=== PATIENT | female | born 1965 | race African-American/Black ===

== ENCOUNTER 2017-03-14 13:12 | Inpatient (IN) | payer MEDICAID, OTHER ==
[~2017-03-14] VITALS: Ht 165.1 cm; Wt 77.1 kg
[~2017-03-14 13:12] MED LIST: BENAZEPRIL HCL20 MG ORAL; CATAPRES0.1 MG ORAL
[2017-03-14 13:30] VITALS: BP 192/133
[2017-03-14] MEDS ORDERED: LORazepam Inj 2mg/ml 1ml IV ONE (13:45)
--- NOTE | 2017-03-14 13:49 | Emergency Room Report ---
History of Present Illness General Chief Complaint: Syncope Source: Patient, Medical Record Present Illness HPI 51-year-old female history of hypertension, anxiety, presenting with left-sided chest pain. Patient states that she had left-sided chest pain while walking down the stairs, states the pain was so severe that she fell down 3 steps, did not hit her head as her caught her, but states that there was LOC for less than 1 minute. Patient states that she felt that her left shoulder popped out and that her put it back in. Localized to substernal area, no radiation to back or other areas, sharp in nature, gradual in onset, has lasted for the last 3 hours. Denies SOB. Denies palpitations, diaphoresis, n/v. Patient took that she took nitroglycerin and 3 aspirin this which did not alleviate the pain Denies fever, chills, cough, abd pain. Denies trauma. Patient has never had a stress test. Patient has never had a cardiac catheterization. Denies smoking, no family history of cardiac disease at a young age. Allergies: Coded Allergies: METHYLPHENIDATE (Verified Allergy, Unknown, 03/14/17) METOCLOPRAMIDE (Verified Allergy, Unknown, 03/14/17) ONDANSETRON (Verified Allergy, Unknown, 03/14/17) TRAMADOL (Verified Allergy, Unknown, 03/14/17) CHLORPROMAZINE (Verified Adverse Reaction, Intermediate, Shortness of Breath, 06/03/14) KETOROLAC (Verified Adverse Reaction, Intermediate, 06/03/14) PENICILLINS (Verified Adverse Reaction, Intermediate, 06/03/14) IBUPROFEN (Unverified Adverse Reaction, Unknown, 06/03/14) Uncoded Allergies: CONTRAST DYE (Allergy, Unknown, 03/14/17) Patient History Past Medical History: see triage record Past Surgical History: none Pertinent Family History: none Last Menstrual Period: menopause Reviewed Nursing Documentation: PMH: Agreed, PSxH: Agreed Nursing Documentation-PMH Past Medical History: No History, Except For Hx Cardiac Problems: Yes Hx Hypertension: Yes Hx Asthma: Yes Hx COPD: Yes Hx Cancer: No Hx Gastrointestinal Problems: No Hx Neurological Problems: Yes Hx 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 Review of Systems All Other Systems: negative except mentioned in HPI Physical Exam Vital Signs Date Time Temp Pulse Resp B/P (MAP) Pulse Ox O2 Delivery O2 Flow Rate FiO2 03/14/17 13:18 98.1 Sp02 EP Interpretation: reviewed, normal General Appearance: normal inspection, well appearing, no apparent distress, alert, GCS 15, non-toxic Head: normocephalic, atraumatic Eyes: bilateral eye normal inspection, bilateral eye PERRL, bilateral eye EOMI ENT: normal ENT inspection, normal pharynx, normal voice, moist mucus membranes Neck: normal inspection, full range of motion, supple Respiratory: normal inspection, lungs clear, normal breath sounds, no respiratory distress, no retraction, no wheezing, speaking full sentences, chest symmetrical Cardiovascular #1: normal inspection, regular rate, rhythm, no edema, normal capillary refill Cardiovascular #2: 2+ radial (R), 2+ radial (L) Gastrointestinal: normal inspection, non tender, soft, non-distended, no guarding Musculoskeletal: other - Left shoulder tender to palpation, there are no gross bony deformities, able to abduct arm above 90 pain. Neurologic: normal inspection, alert, oriented x3, responsive, motor strength/ tone normal, sensory intact, normal gait, speech normal Psychiatric: normal inspection, judgement/insight normal, memory normal Skin: normal inspection, normal color, no rash, warm/dry, well hydrated, normal turgor Medical Decision Making Diagnostic Impression: Primary Impression: Acute coronary syndrome Additional Impression: Syncope ER Course 51-year-old female p/w CP Also had syncopal episode, L shoulder pain DDX: ACS vs. CHF vs. pneumonia vs. gastritis/GERD vs. pneumothorax vs intracranial bleed r/o L shoulder fx. vs. dislocation Plan: IV access, obtain labs including troponin, EKG, CXR Aspirin already taken by patient at home CT head Left shoulder x-ray Anticipate admission ER course: Patient was treated with Benadryl and morphine for pain Ativan given for anxiety CT head negative, x-ray shoulder negative Disposition: Patient requires admission for chest pain. Patient requires admission for further workup, serial troponin, and possible stress test/cath inpatient. Signed out to 51yo F with CP, syncopal episode -CT head neg -pending remaining labs -admit to tele Please note that this Emergency Department Report was dictated using [employer] software, occasionally this can lead to erroneous entry secondary to interpretation by the dictation equipment. Laboratory Tests Test 03/14/17 13:45 03/14/17 16:06 03/14/17 18:40 03/15/17 06:05 White Blood Count 6.2 K/UL (4.8-10.8) Pending Red Blood Count 5.31 M/UL (4.20-5.40) Pending Hemoglobin 13.8 G/DL (12.0-16.0) Pending Hematocrit 44.8 % (37.0-47.0) Pending Mean Corpuscular Volume 84 FL (80-99) Pending Mean Corpuscular Hemoglobin 26.0 PG (27.0-31.0) L Pending Mean Corpuscular Hemoglobin Concent 30.7 G/DL (32.0-36.0) L Pending Red Cell Distribution Width 16.2 % (11.6-14.8) H Pending Platelet Count 247 K/UL (150-450) Pending Mean Platelet Volume 7.7 FL (6.5-10.1) Pending Neutrophils (%) (Auto) 73.9 % (45.0-75.0) Pending Lymphocytes (%) (Auto) 18.5 % (20.0-45.0) L Pending Monocytes (%) (Auto) 5.6 % (1.0-10.0) Pending Eosinophils (%) (Auto) 1.1 % (0.0-3.0) Pending Basophils (%) (Auto) 0.9 % (0.0-2.0) Pending Urine Color Yellow Urine Appearance Clear Urine pH 7 (4.5-8.0) Urine Specific [place] 1.010 (1.005-1.035) Urine Protein Negative (NEGATIVE) Urine Glucose (UA) Negative (NEGATIVE) Urine Ketones Negative (NEGATIVE) Urine Occult Blood Negative (NEGATIVE) Urine Nitrite Negative (NEGATIVE) Urine Bilirubin Negative (NEGATIVE) Urine Urobilinogen 1 MG/DL (0.0-1.0) H Urine Leukocyte Esterase Negative (NEGATIVE) Sodium Level 141 mEQ/L (135-145) Potassium Level 4.1 mEQ/L (3.4-4.9) Chloride Level 103 mEQ/L (98-107) Carbon Dioxide Level 23 mEQ/L (20-30) Anion Gap 15 (5-15) Blood Urea Nitrogen 10 mg/dL (7-23) Creatinine 1.0 mg/dL (0.5-0.9) H Estimate Glomerular Filtration Rate > 60 mL/min (>60) Glucose Level 111 mg/dL (74-106) H Calcium Level 9.9 mg/dL (8.6-10.2) Total Bilirubin 0.4 mg/dL (0.0-1.2) Aspartate Amino Transferase (AST) 20 U/L (5-40) Alanine Aminotransferase (ALT) 18 U/L (3-33) Alkaline Phosphatase 66 U/L (35-104) Total Creatine Kinase 106 U/L (26-140) Creatine Kinase MB 2.6 ng/mL (< 3.8) Creatine Kinase MB Relative Index 2.4 Troponin I < 0.30 ng/mL (<=0.30) < 0.30 ng/mL (<=0.30) Pending Pro-B-Type Natriuretic Peptide 133 pg/mL (0-125) H Total Protein 7.7 g/dL (6.6-8.7) Albumin 4.6 g/dL (3.5-5.2) Globulin 3.1 g/dL Albumin/Globulin Ratio 1.4 (1.0-2.7) Urine Opiates Screen Negative (NEGATIVE) Urine Barbiturates Screen Negative (NEGATIVE) Phencyclidine (PCP) Screen Negative (NEGATIVE) Urine Amphetamines Screen Negative (NEGATIVE) Urine Benzodiazepines Screen Negative (NEGATIVE) Urine Cocaine Screen Negative (NEGATIVE) Urine Marijuana (THC) Screen Negative (NEGATIVE) Prothrombin Time Pending Prothrombin Time INR Pending PTT Pending C-Reactive Protein, Quantitative Pending Triglycerides Level Pending Cholesterol Level Pending LDL Cholesterol Pending HDL Cholesterol Pending Cholesterol/HDL Ratio Pending Thyroid Stimulating Hormone (TSH) Pending EKG Diagnostic Results Rate: tachycardiac Rhythm: NSR ST Segments: other - TWI aVL ASA given to the pt in ED: No - pt took it at home, 3 baby asa Rhythm Strip Diag. Results EP Interpretation: yes Rate: 90 Rhythm: NSR, no PVC's, no ectopy Chest X-Ray Diagnostic Results Chest X-Ray Diagnostic Results : # of Views/Limited/Complete: 1 View Indication: Chest Pain EP Interpretation: Yes Interpretation: no consolidation, no effusion, no pneumothorax, no acute cardiopulmonary disease Impression: No acute disease Electronically Signed by: Electronically signed by Falguni Ho MD Other X-Ray Diagnostic Results Other X-Ray Diagnostic Results : X-Ray ordered: L shoulder # of Views/Limited Vs Complete: 4 View Indication: Pain EP Interpretation: Yes Interpretation: no dislocation, no soft tissue swelling, no fractures, nonspecific bowel gas Impression: No acute disease Electronically Signed by: Electronically signed by Falguni Ho MD Last Vital Signs Date Time Temp Pulse Resp B/P (MAP) Pulse Ox O2 Delivery O2 Flow Rate FiO2 03/14/17 13:18 98.1 Falguni Ho M.D. Mar 14, 2017 13:49
[2017-03-14 13:54] LABS: APPEARANCE,URINE CLEAR; BASOPHILS % (AUTO) 0.9 % (0.0-2.0); EOSINOPHILS % (AUTO) 1.1 % (0.0-3.0); KETONES,URINE NEGATIVE (NEGATIVE); LEUKOCYTE ESTERASE ,URINE NEGATIVE (NEGATIVE); LYMPHOCYTES % (AUTO) 18.5 % (20.0-45.0); MEAN CORPUSCULAR HGB CONC 30.7 G/DL (32.0-36.0); MEAN CORPUSCULAR VOLUME 84 FL (80-99); MEAN PLATELET VOLUME 7.7 FL (6.5-10.1); MONOCYTES % (AUTO) 5.6 % (1.0-10.0); NEUTROPHILS % (AUTO) 73.9 % (45.0-75.0); NITRITE,URINE NEGATIVE (NEGATIVE); PH,URINE 7 (4.5-8.0); PLATELET COUNT 247 K/UL (150-450); PROTEIN,URINE NEGATIVE (NEGATIVE); RED BLOOD COUNT 5.31 M/UL (4.20-5.40); RED CELL DISTRIBUTION WIDTH 16.2 % (11.6-14.8); UROBILINOGEN,URINE 1 MG/DL (0.0-1.0); WHITE BLOOD COUNT 6.2 K/UL (4.8-10.8)
[2017-03-14 14:16] LABS: TROPONIN I < 0.30 ng/mL (<=0.30)
[2017-03-14 14:19] LABS: ALANINE AMINOTRANSFERASE 18 U/L (3-33); ALBUMIN/GLOBULIN RATIO 1.4 (1.0-2.7); ANION GAP 15 (5-15); ASPARTATE AMINO TRANSFERASE 20 U/L (5-40); CALCIUM 9.9 mg/dL (8.6-10.2); CARBON DIOXIDE 23 mEQ/L (20-30); CHLORIDE 103 mEQ/L (98-107); GLOMERULAR FILTRATION RATE > 60 mL/min (>60); HEMOLYSIS 3; POTASSIUM 4.1 mEQ/L (3.4-4.9); SODIUM 141 mEQ/L (135-145); TOTAL PROTEIN 7.7 g/dL (6.6-8.7)
[2017-03-14 14:30] VITALS: BP 186/116
[2017-03-14 14:30] LABS: CKMB 2.6 ng/mL (< 3.8)
[2017-03-14] MEDS ORDERED: DiphenhydrAMINE 50mg/ml Inj IVP ONE ×2 (14:30→16:15)
[2017-03-14] MEDS ORDERED: Morphine Sulfate 4mg/ml Inj IVP ONE (14:30)
[2017-03-14] MEDS ORDERED: cloNIDine 0.2mg Tab ORAL ONE (15:15)
[2017-03-14] MEDS ORDERED: HYDROmorphone 1mg/ml Carpuject IVP ONE (15:15)
[2017-03-14] MEDS ORDERED: NORVASC2.5 MG ORAL (15:39)
[2017-03-14] MEDS ORDERED: CATAPRES-TTS 11 EACH TDERMAL (15:39)
[2017-03-14] MEDS ORDERED: LOTENSIN20 MG ORAL (15:39)
[2017-03-14] MEDS ORDERED: Diltiazem 25mg/5ml IV PRN (15:45)
[2017-03-14] MEDS ORDERED: DuoNeb 0.5-3(2.5)mg/3ml neb HHN PRN (15:45)
[2017-03-14] MEDS ORDERED: Miralax 17gm pkt ORAL PRN (15:45)
[2017-03-14 16:00] VITALS: BP_SYST 127; BP_SYST 195; BP_DIAS 123; BP_DIAS 70
[2017-03-14] MEDS ORDERED: Tubing IV Cassette IV ONE ×2 (16:10→16:28)
[2017-03-14] MEDS ORDERED: HYDROmorphone 1 MG, DiphenhydrAMINE 25 MG in NS 55 ML IV ONE (16:15)
[2017-03-14] MEDS ORDERED: Tubing IV Secondary IV ONE (16:27)
[2017-03-14] MEDS ORDERED: NS 55 ML IV ONE (16:27)
[2017-03-14 17:00] VITALS: BP 172/93
[2017-03-14] MEDS ORDERED: Nitroglycerin Subl 0.4mg tab SL PRN (17:15)
[2017-03-14 17:42] VITALS: BP 187/102
[2017-03-14 19:07] LABS: TROPONIN I < 0.30 ng/mL (<=0.30)
[2017-03-14 20:09] VITALS: BP 170/100
[2017-03-14] MEDS: Heparin 5000 units/ml inj SUBQ SCH (20:49)
[2017-03-14] MEDS: Morphine Sulfate 4mg/ml Inj IVP PRN (23:34)
[2017-03-15] VITALS: BP 153/91
[2017-03-15 04:00] VITALS: BP 152/92
[2017-03-15] MEDS: Morphine Sulfate 4mg/ml Inj IVP PRN ×3 (04:14→12:37)
[2017-03-15 07:19] LABS: EOSINOPHILS % (AUTO) 2.1 % (0.0-3.0); LYMPHOCYTES % (AUTO) 38.2 % (20.0-45.0); MEAN CORPUSCULAR HEMOGLOBIN 27.5 PG (27.0-31.0); MEAN CORPUSCULAR HGB CONC 32.2 G/DL (32.0-36.0); MEAN CORPUSCULAR VOLUME 85 FL (80-99); MEAN PLATELET VOLUME 7.6 FL (6.5-10.1); MONOCYTES % (AUTO) 8.2 % (1.0-10.0); NEUTROPHILS % (AUTO) 50.6 % (45.0-75.0); PLATELET COUNT 209 K/UL (150-450); RED CELL DISTRIBUTION WIDTH 16.7 % (11.6-14.8); WHITE BLOOD COUNT 4.6 K/UL (4.8-10.8)
[2017-03-15 07:30] VITALS: BP 151/82
[2017-03-15 07:41] LABS: TROPONIN I < 0.30 ng/mL (<=0.30)
[2017-03-15 07:43] LABS: CHOLESTEROL/HDL RATIO 6.9 (3.3-4.4); CRP QUANT 0.4 mg/dL (< 0.5)
[2017-03-15 07:47] LABS: THYROID STIMULATING HORMONE 1.56 uIU/mL (0.300-4.500)
[2017-03-15 07:52] LABS: INR 0.9 (0.9-1.1); PROTHROMBIN TIME 9.5 SEC (9.30-11.50)
[2017-03-15] MEDS: DiphenhydrAMINE 50mg/ml Inj IVP PRN ×3 (08:31→20:27)
[2017-03-15] MEDS: Heparin 5000 units/ml inj SUBQ SCH (08:33)
--- NOTE | 2017-03-15 08:45 | Diagnostic Imaging Report ---
Indication: PAIN fall, head trauma Technique: Continuous helical CT scanning of the head was performed without intravenous contrast material. Axial and coronal 5 mm sections were generated. Radiation dose was minimized using automated exposure control Dose: Total Dose Length Product - DLP [address] Dose Index - CTDIvol(s) 70.38 mGy. Comparison: None Findings: The ventricular system is normal in size and configuration. There is no shift of midline structures. No abnormal extra-axial fluid collections are noted. There is no evidence of intracerebral bleeding. No other abnormal high or low density areas are noted within the brain. Intact calvarium. Visualized orbits and sinuses are unremarkable. Impression: Normal CT scan of the head without contrast material. This agrees with the preliminary interpretation provided overnight by Dr. Vasquez The CT scanner at [facility] is accredited by the [employer] and the scans are performed using protocols designed to limit radiation exposure to as low as reasonably achievable to attain images of sufficient resolution adequate for diagnostic evaluation.
--- NOTE | 2017-03-15 09:46 | Diagnostic Imaging Report ---
Indication: Chest pain Technique: One view of the chest Comparison: 06/03/2014 Findings: Lungs and pleural spaces are clear. There is a retrocardiac hiatal hernia. The heart size is borderline enlarged. No significant change Impression: Borderline cardiomegaly Hiatal hernia No acute process
--- NOTE | 2017-03-15 09:47 | Diagnostic Imaging Report ---
Indication: PAIN Technique: 3 views of the shoulder Comparison: none Findings: No acute fractures. No dislocations. Joint spaces are preserved. Impression:Negative
--- NOTE | 2017-03-15 11:16 | Diagnostic Imaging Report ---
Indication: FALL, pain Technique: 3 views of the cervical spine Comparison: none Findings: Exam is limited. Patient was unable to tolerate swimmer views, and did not wish to complete the exam a lateral view, the cervical spine is seen only to the the C5 level. The lower cervical spine and cervicothoracic junction are not evaluated. No prevertebral soft tissue swelling. The visualized segments demonstrate no evidence of fracture or dislocation. The vertebral body heights are preserved. Disc spaces are preserved. Impression: Limit exam. No definite acute bony trauma on visualized segments.
--- NOTE | 2017-03-15 11:18 | Diagnostic Imaging Report ---
Indication: FALL Technique: 3 views of the left shoulder Comparison: none Findings: No acute fractures. No dislocations. The joint spaces are preserved Impression:Negative
--- NOTE | 2017-03-15 11:20 | Diagnostic Imaging Report ---
Indication: FALL, pain Technique: 3 views of the lumbar spine Comparison: 06/23/2014 Findings:Bony alignment is normal. There is degenerative disc narrowing at L4-5 again demonstrated. The remainder of the disc spaces are preserved. The vertebral body heights are preserved. The pedicles are intact. No acute fractures. No dislocations. Again demonstrated is a calcified mass within the left side of the pelvis. No significant interim change Impression:No acute bony trauma Degenerative changes of the L4-5 disc Calcified masses in the left pelvis, also previously demonstrated, presumably a calcified fibroid
[2017-03-15 12:00] VITALS: BP 160/98
--- NOTE | 2017-03-15 13:06 | History and Physical ---
History of Present Illness General Date patient seen: Mar 15, 2017 Reason for Hospitalization: Syncope Present Illness HPI 51 year old female with hx of HTN, ? cardiac aneurysm, cardiac cath in [facility] last year, ? atrial flutter, presented to [facility] er with CC of Chest pain, vomiting blood, syncope and Left shoulder dislocation ( the pushed it back, she claims). She has multiple complains, including lower neck nogueira. Al xr in ER were negative. Allergies: Coded Allergies: METHYLPHENIDATE (Verified Allergy, Unknown, 03/14/17) METOCLOPRAMIDE (Verified Allergy, Unknown, 03/14/17) ONDANSETRON (Verified Allergy, Unknown, 03/14/17) TRAMADOL (Verified Allergy, Unknown, 03/14/17) CHLORPROMAZINE (Verified Adverse Reaction, Intermediate, Shortness of Breath, 06/03/14) KETOROLAC (Verified Adverse Reaction, Intermediate, 06/03/14) PENICILLINS (Verified Adverse Reaction, Intermediate, 06/03/14) IBUPROFEN (Unverified Adverse Reaction, Unknown, 06/03/14) Uncoded Allergies: CONTRAST DYE (Allergy, Unknown, 03/14/17) Medication History Scheduled Amlodipine Besylate (Norvasc), Unknown Dose ORAL DAILY, (Reported) Benazepril Hcl* (Benazepril Hcl*), 20 MG ORAL DAILY, (Reported) Benazepril Hcl* (Lotensin*), 20 MG ORAL DAILY, (Reported) Clonidine Hcl* (Catapres*), 0.1 MG ORAL QHS, (Reported) Jrehywjlc-Tff-9* (Gnggjnna-Shh-1*), 1 PATCH TDERMAL ONCE A WEEK, (Reported) Patient History Healthcare decision maker Resuscitation status Full Code Advanced Directive on File Past Medical/Surgical History Past Medical/Surgical History: (1) HTN (hypertension) (2) History of cardiac cath Review of Systems All Other Systems: negative except mentioned in HPI Physical Exam General Appearance: WD/WN Lines, tubes and drains: peripheral HEENT: normocephalic, atraumatic Neck: non-tender, supple Respiratory/Chest: chest wall non-tender, lungs clear Breasts: no masses Cardiovascular/Chest: normal peripheral pulses Abdomen: hyperactive bowel sounds Extremities: normal range of motion Last 24 Hour Vital Signs Date Time Temp Pulse Resp B/P (MAP) Pulse Ox O2 Delivery O2 Flow Rate FiO2 9/18/17 12:00 98.1 78 20 160/98 98 Room Air 03/15/17 09:00 97.8 03/15/17 08:31 98 174/92 03/15/17 08:00 89 03/15/17 07:30 101 22 151/82 99 Room Air 03/15/17 04:00 97.8 92 21 152/92 97 Room Air 92 03/15/17 04:00 98 03/15/17 00:00 97.7 99 22 153/91 97 Room Air 99 03/15/17 00:00 101 03/14/17 20:09 98.0 101 20 170/100 100 Room Air 03/14/17 20:00 114 03/14/17 18:36 187/102 03/14/17 17:42 97.7 108 187/102 97 Room Air 03/14/17 17:16 98.0 104 18 172/93 97 Room Air 03/14/17 17:05 98.0 03/14/17 17:00 104 18 172/93 97 Room Air 03/14/17 16:31 196/124 03/14/17 16:00 97.9 106 17 127/70 94 Room Air 03/14/17 16:00 102 20 195/123 97 Room Air 03/14/17 15:55 98.0 03/14/17 15:23 188/121 03/14/17 14:58 98.0 03/14/17 14:30 92 20 186/116 100 Room Air 03/14/17 13:30 114 20 192/133 98 Room Air 03/14/17 13:18 98.1 Laboratory Tests Test 03/14/17 13:45 03/14/17 16:06 03/14/17 18:40 03/15/17 06:05 White Blood Count 6.2 K/UL (4.8-10.8) 4.6 K/UL (4.8-10.8) L Red Blood Count 5.31 M/UL (4.20-5.40) 4.10 M/UL (4.20-5.40) L Hemoglobin 13.8 G/DL (12.0-16.0) 11.3 G/DL (12.0-16.0) L Hematocrit 44.8 % (37.0-47.0) 35.0 % (37.0-47.0) L Mean Corpuscular Volume 84 FL (80-99) 85 FL (80-99) Mean Corpuscular Hemoglobin 26.0 PG (27.0-31.0) L 27.5 PG (27.0-31.0) Mean Corpuscular Hemoglobin Concent 30.7 G/DL (32.0-36.0) L 32.2 G/DL (32.0-36.0) Red Cell Distribution Width 16.2 % (11.6-14.8) H 16.7 % (11.6-14.8) H Platelet Count 247 K/UL (150-450) 209 K/UL (150-450) Mean Platelet Volume 7.7 FL (6.5-10.1) 7.6 FL (6.5-10.1) Neutrophils (%) (Auto) 73.9 % (45.0-75.0) 50.6 % (45.0-75.0) Lymphocytes (%) (Auto) 18.5 % (20.0-45.0) L 38.2 % (20.0-45.0) Monocytes (%) (Auto) 5.6 % (1.0-10.0) 8.2 % (1.0-10.0) Eosinophils (%) (Auto) 1.1 % (0.0-3.0) 2.1 % (0.0-3.0) Basophils (%) (Auto) 0.9 % (0.0-2.0) 1.0 % (0.0-2.0) Urine Color Yellow Urine Appearance Clear Urine pH 7 (4.5-8.0) Urine Specific [place] 1.010 (1.005-1.035) Urine Protein Negative (NEGATIVE) Urine Glucose (UA) Negative (NEGATIVE) Urine Ketones Negative (NEGATIVE) Urine Occult Blood Negative (NEGATIVE) Urine Nitrite Negative (NEGATIVE) Urine Bilirubin Negative (NEGATIVE) Urine Urobilinogen 1 MG/DL (0.0-1.0) H Urine Leukocyte Esterase Negative (NEGATIVE) Sodium Level 141 mEQ/L (135-145) Potassium Level 4.1 mEQ/L (3.4-4.9) Chloride Level 103 mEQ/L (98-107) Carbon Dioxide Level 23 mEQ/L (20-30) Anion Gap 15 (5-15) Blood Urea Nitrogen 10 mg/dL (7-23) Creatinine 1.0 mg/dL (0.5-0.9) H Estimat Glomerular Filtration Rate > 60 mL/min (>60) Glucose Level 111 mg/dL (74-106) H Calcium Level 9.9 mg/dL (8.6-10.2) Total Bilirubin 0.4 mg/dL (0.0-1.2) Aspartate Amino Transf (AST/SGOT) 20 U/L (5-40) Alanine Aminotransferase (ALT/SGPT) 18 U/L (3-33) Alkaline Phosphatase 66 U/L (35-104) Total Creatine Kinase 106 U/L (26-140) Creatine Kinase MB 2.6 ng/mL (< 3.8) Creatine Kinase MB Relative Index 2.4 Troponin I < 0.30 ng/mL (<=0.30) < 0.30 ng/mL (<=0.30) < 0.30 ng/mL (<=0.30) Pro-B-Type Natriuretic Peptide 133 pg/mL (0-125) H Total Protein 7.7 g/dL (6.6-8.7) Albumin 4.6 g/dL (3.5-5.2) Globulin 3.1 g/dL Albumin/Globulin Ratio 1.4 (1.0-2.7) Urine Opiates Screen Negative (NEGATIVE) Urine Barbiturates Screen Negative (NEGATIVE) Phencyclidine (PCP) Screen Negative (NEGATIVE) Urine Amphetamines Screen Negative (NEGATIVE) Urine Benzodiazepines Screen Negative (NEGATIVE) Urine Cocaine Screen Negative (NEGATIVE) Urine Marijuana (THC) Screen Negative (NEGATIVE) Prothrombin Time 9.5 SEC (9.30-11.50) Prothromb Time International Ratio 0.9 (0.9-1.1) Activated Partial Thromboplast Time 22 SEC (23-33) L C-Reactive Protein, Quantitative 0.4 mg/dL (< 0.5) Triglycerides Level 732 mg/dL (< 150) H Cholesterol Level 243 mg/dL (< 200) H LDL Cholesterol 62 mg/dL (60-99) HDL Cholesterol 35 mg/dL (> 60) Cholesterol/HDL Ratio 6.9 (3.3-4.4) H Thyroid Stimulating Hormone (TSH) 1.560 uIU/mL (0.300-4.500) Height (Feet): 5 Height (Inches): 7.00 Weight (Pounds): 170 Medications Current Medications Medications (Trade) Dose Ordered Sig/Rylee Route PRN Reason Start Time Stop Time Status Last Admin Dose Admin Acetaminophen (Tylenol) 650 mg Q4H PRN ORAL T>100.5 03/14/17 15:45 04/13/17 15:44 Albuterol/ Ipratropium (DuoNeb 0.5-3(2.5)mg/3ml) 3 ml Q4H PRN HHN Shortness of Breath 03/14/17 15:45 03/19/17 15:44 Amlodipine Besylate (Norvasc) 10 mg DAILY ORAL 03/15/17 09:00 04/14/17 08:59 03/15/17 08:31 Clonidine HCl (Catapres TTS-1) 1 patch ONCE A WEEK TDERMAL 03/14/17 18:30 04/13/17 18:29 03/14/17 18:36 Diltiazem HCl (Cardizem) 10 mg EVERY HOUR PRN IV heart rate more than 120bpm 03/14/17 15:45 04/13/17 15:44 Diphenhydramine HCl (Benadryl) 25 mg Q6H PRN IVP Itching 03/15/17 08:15 04/14/17 08:14 03/15/17 08:31 Enalaprilat (Vasotec) 2.5 mg Q6H PRN IV sbp more than 160mmHg 03/14/17 15:45 04/13/17 15:44 Heparin Sodium (Porcine) (Heparin 5000 units/ml) 5,000 units EVERY 12 HOURS SUBQ 03/14/17 21:00 04/13/17 20:59 03/15/17 08:33 Morphine Sulfate (Morphine Sulfate) 4 mg Q4H PRN IVP Severe Pain (Pain Scale 7-10) 03/14/17 22:30 03/21/17 22:29 03/15/17 12:37 Nitroglycerin (Ntg) 0.4 mg Q5MIN X 3 DOSES PRN SL Prn Chest Pain 03/14/17 17:15 04/13/17 17:14 Pantoprazole (Protonix) 40 mg DAILY ORAL 03/15/17 09:00 04/14/17 08:59 03/15/17 08:31 Polyethylene Glycol (Miralax) 17 gm DAILYPRN PRN ORAL Constipation 03/14/17 15:45 04/13/17 15:44 Temazepam (Restoril) 15 mg HSPRN PRN ORAL Insomnia 03/14/17 21:00 03/21/17 20:59 Assessment/Plan Problem List: (1) Intractable nausea and vomiting ICD Codes: R11.2 - Nausea with vomiting, unspecified SNOMED: 324624246, 613353712 (2) Upper GI bleeding ICD Codes: K92.2 - Gastrointestinal hemorrhage, unspecified SNOMED: 92286302 (3) Chest pain ICD Codes: R07.9 - Chest pain, unspecified SNOMED: 39362615 (4) Syncopal seizure ICD Codes: R55 - Syncope and collapse; R56.9 - Unspecified convulsions SNOMED: 853361469 (5) HTN (hypertension) ICD Codes: I10 - Essential (primary) hypertension SNOMED: 46662792 Assessment/Plan NPO IV fluids cardiac evaluation pain management JANET KEMP Mar 15, 2017 13:06
[2017-03-15] MEDS: D5 1/2NS 1,000 ML IV SCH (14:33)
[2017-03-15 16:00] VITALS: BP 160/133
--- NOTE | 2017-03-15 16:02 | GI Initial Consult Note ---
History of Present Illness General Date patient seen: Mar 15, 2017 Time patient seen: 15:53 Reason for Hospitalization: Syncope Referring physician: JANET CARVAJAL Reason for Consultation: VOMITING Present Illness HPI 51-year-old female history of hypertension, anxiety, presenting with left-sided chest pain. Patient states that she had left-sided chest pain while walking down the stairs, states the pain was so severe that she fell down 3 steps, did not hit her head as her caught her, but states that there was LOC for less than 1 minute. Patient states that she felt that her left shoulder popped out and that her put it back in. Localized to substernal area, no radiation to back or other areas, sharp in nature, gradual in onset, has lasted for the last 3 hours. Denies SOB. Denies palpitations, diaphoresis, n/v. Patient took that she took nitroglycerin and 3 aspirin this which did not alleviate the pain Denies fever, chills, cough, abd pain. Denies trauma. Patient has never had a stress test. Patient has never had a cardiac catheterization. Denies smoking, no family history of cardiac disease at a young age. GI Consult. HPI as noted above. GI consulted for persistent vomiting. Pt seen on floor, awake A&Ox4 NAD NPO with no active s/sx of N/V/D. Patient states she's had persistent vomiting x 2 days and noted to have bloody emesis during an episode as well. In addition, she c/o of difficulty swallowing and being unable to maintain any food down. She presents today with anemia and elevated triglycerides. The patient has no history of colonoscopy. Utox unremarkable. Home Meds Reported Medications Amlodipine Besylate (Norvasc) 2.5 Mg Tablet, ORAL DAILY, TAB 03/14/17 Benazepril Hcl* (LOTENSIN*) 20 Mg Tablet, 20 MG ORAL DAILY, TAB 03/14/17 Gmvohdtln-Twv-7* (CNNDAFJW-VQN-4*) 1 Each Patch.tdwk, 1 PATCH TDERMAL ONCE A WEEK, PATCH 03/14/17 Clonidine Hcl* (CATAPRES*) 0.1 Mg Tablet, 0.1 MG ORAL QHS, TAB 06/04/14 Benazepril Hcl* (BENAZEPRIL HCL*) 20 Mg Tablet, 20 MG ORAL DAILY, TAB 06/04/14 Med list reviewed/reconciled: Yes Allergies: Coded Allergies: METHYLPHENIDATE (Verified Allergy, Unknown, 03/14/17) METOCLOPRAMIDE (Verified Allergy, Unknown, 03/14/17) ONDANSETRON (Verified Allergy, Unknown, 03/14/17) TRAMADOL (Verified Allergy, Unknown, 03/14/17) CHLORPROMAZINE (Verified Adverse Reaction, Intermediate, Shortness of Breath, 06/03/14) KETOROLAC (Verified Adverse Reaction, Intermediate, 06/03/14) PENICILLINS (Verified Adverse Reaction, Intermediate, 06/03/14) IBUPROFEN (Unverified Adverse Reaction, Unknown, 06/03/14) Uncoded Allergies: CONTRAST DYE (Allergy, Unknown, 03/14/17) Patient History History Provided By: Patient, Medical Record PMH Narrative Past Medical History: see triage record Past Surgical History: none Pertinent Family History: none Last Menstrual Period: menopause Reviewed Nursing Documentation: PMH: Agreed, PSxH: Agreed Nursing Documentation-PMH Past Medical History: No History, Except For Hx Cardiac Problems: Yes Hx Hypertension: Yes Hx Asthma: Yes Hx COPD: Yes Hx Cancer: No Hx Gastrointestinal Problems: No Hx Neurological Problems: Yes Hx 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 Social History: Denies: smoking, alcohol use, drug use, other Review of Systems All Other Systems: negative except mentioned in HPI Physical Exam Vital Signs Date Time Temp Pulse Resp B/P (MAP) Pulse Ox O2 Delivery O2 Flow Rate FiO2 03/14/17 13:18 98.1 03/14/17 13:30 114 20 192/133 98 Room Air Sp02 EP Interpretation: reviewed Labs Laboratory Tests Test 03/14/17 16:06 03/14/17 18:40 03/15/17 06:05 Urine Opiates Screen Negative (NEGATIVE) Urine Barbiturates Screen Negative (NEGATIVE) Phencyclidine (PCP) Screen Negative (NEGATIVE) Urine Amphetamines Screen Negative (NEGATIVE) Urine Benzodiazepines Screen Negative (NEGATIVE) Urine Cocaine Screen Negative (NEGATIVE) Urine Marijuana (THC) Screen Negative (NEGATIVE) Troponin I < 0.30 ng/mL (<=0.30) < 0.30 ng/mL (<=0.30) White Blood Count 4.6 K/UL (4.8-10.8) L Red Blood Count 4.10 M/UL (4.20-5.40) L Hemoglobin 11.3 G/DL (12.0-16.0) L Hematocrit 35.0 % (37.0-47.0) L Mean Corpuscular Volume 85 FL (80-99) Mean Corpuscular Hemoglobin 27.5 PG (27.0-31.0) Mean Corpuscular Hemoglobin Concent 32.2 G/DL (32.0-36.0) Red Cell Distribution Width 16.7 % (11.6-14.8) H Platelet Count 209 K/UL (150-450) Mean Platelet Volume 7.6 FL (6.5-10.1) Neutrophils (%) (Auto) 50.6 % (45.0-75.0) Lymphocytes (%) (Auto) 38.2 % (20.0-45.0) Monocytes (%) (Auto) 8.2 % (1.0-10.0) Eosinophils (%) (Auto) 2.1 % (0.0-3.0) Basophils (%) (Auto) 1.0 % (0.0-2.0) Prothrombin Time 9.5 SEC (9.30-11.50) Prothromb Time International Ratio 0.9 (0.9-1.1) Activated Partial Thromboplast Time 22 SEC (23-33) L C-Reactive Protein, Quantitative 0.4 mg/dL (< 0.5) Triglycerides Level 732 mg/dL (< 150) H Cholesterol Level 243 mg/dL (< 200) H LDL Cholesterol 62 mg/dL (60-99) HDL Cholesterol 35 mg/dL (> 60) Cholesterol/HDL Ratio 6.9 (3.3-4.4) H Thyroid Stimulating Hormone (TSH) 1.560 uIU/mL (0.300-4.500) General Appearance: well appearing, no apparent distress, alert Head: normocephalic EENT: PERRL/EOMI, normal ENT inspection Neck: supple Respiratory: normal breath sounds, no respiratory distress Cardiovascular: normal rate Gastrointestinal: non tender, soft Rectal: deferred Genitourinary: no CVA tenderness Musculoskeletal: back normal Neurologic: normal inspection, alert, oriented x3, responsive Psychiatric: normal inspection, judgement/insight normal, memory normal Skin: normal inspection, normal color, no rash, warm/dry Lymphatic: normal inspection, no adenopathy Current Medications Current Medications Medications (Trade) Dose Ordered Sig/Rylee Route PRN Reason Start Time Stop Time Status Last Admin Dose Admin Acetaminophen (Tylenol) 650 mg Q4H PRN ORAL T>100.5 03/14/17 15:45 04/13/17 15:44 Albuterol/ Ipratropium (DuoNeb 0.5-3(2.5)mg/3ml) 3 ml Q4H PRN HHN Shortness of Breath 03/14/17 15:45 03/19/17 15:44 Amlodipine Besylate (Norvasc) 10 mg DAILY ORAL 03/15/17 09:00 04/14/17 08:59 03/15/17 08:31 Clonidine HCl (Catapres TTS-1) 1 patch ONCE A WEEK TDERMAL 03/14/17 18:30 04/13/17 18:29 03/14/17 18:36 Dextrose/Sodium Chloride 1,000 ml @ 50 mls/hr Q20H IV 03/15/17 14:00 04/14/17 13:59 03/15/17 14:33 Diltiazem HCl (Cardizem) 10 mg EVERY HOUR PRN IV heart rate more than 120bpm 03/14/17 15:45 04/13/17 15:44 Diphenhydramine HCl (Benadryl) 25 mg Q6H PRN IVP Itching 03/15/17 08:15 04/14/17 08:14 03/15/17 14:32 Enalaprilat (Vasotec) 2.5 mg Q6H PRN IV sbp more than 160mmHg 03/14/17 15:45 04/13/17 15:44 Hydromorphone HCl (Dilaudid) 2 mg Q4H PRN IVPB pain 7-10 03/15/17 13:00 03/22/17 12:59 UNV Nitroglycerin (Ntg) 0.4 mg Q5MIN X 3 DOSES PRN SL Prn Chest Pain 03/14/17 17:15 04/13/17 17:14 Pantoprazole (Protonix) 40 mg DAILY ORAL 03/15/17 09:00 04/14/17 08:59 03/15/17 08:31 Polyethylene Glycol (Miralax) 17 gm DAILYPRN PRN ORAL Constipation 03/14/17 15:45 04/13/17 15:44 Promethazine HCl (Phenergan) 25 mg Q6H PRN IV Nausea & Vomiting 03/15/17 14:30 04/14/17 14:29 Temazepam (Restoril) 15 mg HSPRN PRN ORAL Insomnia 03/14/17 21:00 03/21/17 20:59 GI: Plan Problems: (1) Anemia (2) Upper GI bleeding (3) Intractable nausea and vomiting Plan EGD scheduled for tomorrow. - maintain NPO + IVFs - hold all blood thinners tonight anemia work up cont Phenergan consider reducing opioid use ppi add on lipase levels from [facility] today monitor H&H, prn tranfusions fu labs Discussed with Dr. Ball. Thank you for referring this patient, we will follow. Maryam Tolentino N.P. Mar 15, 2017 16:02
[2017-03-15] MEDS ORDERED: HYDROmorphone 1mg/ml Carpuject IVP PRN (16:15)
[2017-03-15] MEDS: Enalaprilat 2.5mg/2ml Inj IV PRN (17:55)
--- NOTE | 2017-03-15 19:04 | Cardiology Report ---
APPROVED REPORT EKG Measurement Heart [id number] Sinus tachycardia Voltage criteria for left ventricular hypertrophy Abnormal ECG
--- NOTE | 2017-03-15 20:01 | Cardiology Progress Note ---
Assessment/Plan Assessment/Plan [id number] atypical chest pain neg enzyme despite many hour sof pain htn syncope ? trop neg ekg neg await echo gi evla orhtostatic vitals tele Objective Last 24 Hour Vital Signs Date Time Temp Pulse Resp B/P (MAP) Pulse Ox O2 Delivery O2 Flow Rate FiO2 03/15/17 17:55 175/122 03/15/17 16:52 98.1 03/15/17 16:00 80 03/15/17 16:00 97.5 76 19 160/133 95 Room Air 03/15/17 12:00 98.1 78 20 160/98 98 Room Air 03/15/17 12:00 79 03/15/17 09:00 97.8 03/15/17 08:31 98 174/92 03/15/17 08:00 89 03/15/17 07:30 101 22 151/82 99 Room Air 03/15/17 04:00 97.8 92 21 152/92 97 Room Air 92 03/15/17 04:00 98 03/15/17 00:00 97.7 99 22 153/91 97 Room Air 99 03/15/17 00:00 101 03/14/17 20:09 98.0 101 20 170/100 100 Room Air 03/14/17 20:00 114 Intake and Output 03/15/17 03/16/17 19:00 07:00 # Voids 2 Laboratory Tests Test 03/15/17 06:05 White Blood Count 4.6 K/UL (4.8-10.8) L Red Blood Count 4.10 M/UL (4.20-5.40) L Hemoglobin 11.3 G/DL (12.0-16.0) L Hematocrit 35.0 % (37.0-47.0) L Mean Corpuscular Volume 85 FL (80-99) Mean Corpuscular Hemoglobin 27.5 PG (27.0-31.0) Mean Corpuscular Hemoglobin Concent 32.2 G/DL (32.0-36.0) Red Cell Distribution Width 16.7 % (11.6-14.8) H Platelet Count 209 K/UL (150-450) Mean Platelet Volume 7.6 FL (6.5-10.1) Neutrophils (%) (Auto) 50.6 % (45.0-75.0) Lymphocytes (%) (Auto) 38.2 % (20.0-45.0) Monocytes (%) (Auto) 8.2 % (1.0-10.0) Eosinophils (%) (Auto) 2.1 % (0.0-3.0) Basophils (%) (Auto) 1.0 % (0.0-2.0) Prothrombin Time 9.5 SEC (9.30-11.50) Prothromb Time International Ratio 0.9 (0.9-1.1) Activated Partial Thromboplast Time 22 SEC (23-33) L Troponin I < 0.30 ng/mL (<=0.30) C-Reactive Protein, Quantitative 0.4 mg/dL (< 0.5) Triglycerides Level 732 mg/dL (< 150) H Cholesterol Level 243 mg/dL (< 200) H LDL Cholesterol 62 mg/dL (60-99) HDL Cholesterol 35 mg/dL (> 60) Cholesterol/HDL Ratio 6.9 (3.3-4.4) H Lipase 60 U/L (< 60) Thyroid Stimulating Hormone (TSH) 1.560 uIU/mL (0.300-4.500) BRINA CHAVIRA Mar 15, 2017 20:01
[2017-03-15 20:45] VITALS: BP 149/92
[2017-03-15] MEDS: Lisinopril 10mg tab ORAL SCH ×2 (20:45→21:00)
[2017-03-15] MEDS ORDERED: LORazepam 1mg tab ORAL PRN (22:00)
[2017-03-15] MEDS: LORazepam Inj 2mg/ml 1ml IV PRN (22:54)
--- NOTE | 2017-03-15 23:38 | Consultation ---
History of Present Illness General Chief Complaint: Syncope Referring physician: JANET CARVAJAL Reason for Consultation: VOMITING Present Illness HPI 51-year-old female history of hypertension, anxiety, presenting with left-sided chest pain. Patient states that she had left-sided chest pain while walking down the stairs, states the pain was so severe that she fell down 3 steps. the pt has med seeking bahavior and asking only for ativan liquid. the pt is irritable and anxious. the pt denied depressive manic or psychotic sxs. the pt has panic attack like sxs Allergies: Coded Allergies: METHYLPHENIDATE (Verified Allergy, Unknown, 03/14/17) METOCLOPRAMIDE (Verified Allergy, Unknown, 03/14/17) ONDANSETRON (Verified Allergy, Unknown, 03/14/17) TRAMADOL (Verified Allergy, Unknown, 03/14/17) CHLORPROMAZINE (Verified Adverse Reaction, Intermediate, Shortness of Breath, 06/03/14) KETOROLAC (Verified Adverse Reaction, Intermediate, 06/03/14) PENICILLINS (Verified Adverse Reaction, Intermediate, 06/03/14) IBUPROFEN (Unverified Adverse Reaction, Unknown, 06/03/14) Uncoded Allergies: CONTRAST DYE (Allergy, Unknown, 03/14/17) Medication History Scheduled Amlodipine Besylate (Norvasc), Unknown Dose ORAL DAILY, (Reported) Benazepril Hcl* (Benazepril Hcl*), 20 MG ORAL DAILY, (Reported) Benazepril Hcl* (Lotensin*), 20 MG ORAL DAILY, (Reported) Clonidine Hcl* (Catapres*), 0.1 MG ORAL QHS, (Reported) Rdjewdgsb-Vju-8* (Vhcbbcnv-Tfr-5*), 1 PATCH TDERMAL ONCE A WEEK, (Reported) Patient History History Provided By: Patient, Medical Record, PMD Healthcare decision maker Resuscitation status Full Code Advanced Directive on File Past Medical/Surgical History Past Medical/Surgical History: (1) Syncopal seizure (2) Syncope (3) HTN (hypertension) (4) Chest pain (5) Upper GI bleeding (6) Intractable nausea and vomiting (7) Anemia Review of Systems Psychiatric: Reports: prior hx, anxiety, depressed feelings, emotional problems Physical Exam General Appearance: no apparent distress, alert, thin Neurologic: alert, oriented x 3, responsive, depressed affect Last 24 Hour Vital Signs Date Time Temp Pulse Resp B/P (MAP) Pulse Ox O2 Delivery O2 Flow Rate FiO2 03/15/17 21:00 152/90 03/15/17 20:45 97.7 87 19 149/92 98 Room Air 87 03/15/17 17:55 175/122 03/15/17 16:52 98.1 03/15/17 16:00 80 03/15/17 16:00 97.5 76 19 160/133 95 Room Air 03/15/17 12:00 98.1 78 20 160/98 98 Room Air 03/15/17 12:00 79 03/15/17 09:00 97.8 03/15/17 08:31 98 174/92 03/15/17 08:00 89 03/15/17 07:30 101 22 151/82 99 Room Air 03/15/17 04:00 97.8 92 21 152/92 97 Room Air 92 03/15/17 04:00 98 03/15/17 00:00 97.7 99 22 153/91 97 Room Air 99 03/15/17 00:00 101 Intake and Output 03/15/17 03/16/17 19:00 07:00 # Voids 2 Laboratory Tests Test 03/15/17 06:05 White Blood Count 4.6 K/UL (4.8-10.8) L Red Blood Count 4.10 M/UL (4.20-5.40) L Hemoglobin 11.3 G/DL (12.0-16.0) L Hematocrit 35.0 % (37.0-47.0) L Mean Corpuscular Volume 85 FL (80-99) Mean Corpuscular Hemoglobin 27.5 PG (27.0-31.0) Mean Corpuscular Hemoglobin Concent 32.2 G/DL (32.0-36.0) Red Cell Distribution Width 16.7 % (11.6-14.8) H Platelet Count 209 K/UL (150-450) Mean Platelet Volume 7.6 FL (6.5-10.1) Neutrophils (%) (Auto) 50.6 % (45.0-75.0) Lymphocytes (%) (Auto) 38.2 % (20.0-45.0) Monocytes (%) (Auto) 8.2 % (1.0-10.0) Eosinophils (%) (Auto) 2.1 % (0.0-3.0) Basophils (%) (Auto) 1.0 % (0.0-2.0) Prothrombin Time 9.5 SEC (9.30-11.50) Prothromb Time International Ratio 0.9 (0.9-1.1) Activated Partial Thromboplast Time 22 SEC (23-33) L Troponin I < 0.30 ng/mL (<=0.30) C-Reactive Protein, Quantitative 0.4 mg/dL (< 0.5) Triglycerides Level 732 mg/dL (< 150) H Cholesterol Level 243 mg/dL (< 200) H LDL Cholesterol 62 mg/dL (60-99) HDL Cholesterol 35 mg/dL (> 60) Cholesterol/HDL Ratio 6.9 (3.3-4.4) H Lipase 60 U/L (< 60) Thyroid Stimulating Hormone (TSH) 1.560 uIU/mL (0.300-4.500) Height (Feet): 5 Height (Inches): 7.00 Weight (Pounds): 170 Medications Current Medications Medications (Trade) Dose Ordered Sig/Rylee Route PRN Reason Start Time Stop Time Status Last Admin Dose Admin Acetaminophen (Tylenol) 650 mg Q4H PRN ORAL T>100.5 03/14/17 15:45 04/13/17 15:44 Albuterol/ Ipratropium (DuoNeb 0.5-3(2.5)mg/3ml) 3 ml Q4H PRN HHN Shortness of Breath 03/14/17 15:45 03/19/17 15:44 Amlodipine Besylate (Norvasc) 10 mg DAILY ORAL 03/15/17 09:00 04/14/17 08:59 03/15/17 08:31 Chlorhexidine Gluconate (Franca-Hex 2%) 1 applic DAILY TOPIC 03/16/17 09:00 04/15/17 08:59 Clonidine HCl (Catapres TTS-1) 1 patch ONCE A WEEK TDERMAL 03/14/17 18:30 04/13/17 18:29 03/14/17 18:36 Dextrose/Sodium Chloride 1,000 ml @ 50 mls/hr Q20H IV 03/15/17 14:00 04/14/17 13:59 03/15/17 14:33 Diltiazem HCl (Cardizem) 10 mg EVERY HOUR PRN IV heart rate more than 120bpm 03/14/17 15:45 04/13/17 15:44 Diphenhydramine HCl (Benadryl) 25 mg Q6H PRN IVP Itching 03/15/17 08:15 04/14/17 08:14 03/15/17 20:27 Enalaprilat (Vasotec) 2.5 mg Q6H PRN IV sbp more than 160mmHg 03/14/17 15:45 04/13/17 15:44 03/15/17 17:55 Heparin Sodium/ Sodium Chloride (Heparin 2000 units/Ns 1000ml premix) 2,000 unit ONCE ONCE INJ 03/16/17 09:00 03/16/17 09:01 Hydromorphone HCl (Dilaudid) 2 mg Q4H PRN IVP Severe Pain (Pain Scale 8-10) 03/15/17 16:15 03/22/17 16:14 03/15/17 20:27 Lidocaine HCl (Xylocaine 1% 30ml) 30 ml ONCE ONCE INJ 03/16/17 09:00 03/16/17 09:01 Lisinopril (Zestril) 10 mg Q12HR ORAL 03/15/17 20:30 04/14/17 20:29 Lorazepam (Ativan 2mg/ml 1ml) 1 mg Q4H PRN IV For Anxiety 03/15/17 22:30 03/22/17 22:29 03/15/17 22:54 Nitroglycerin (Ntg) 0.4 mg Q5MIN X 3 DOSES PRN SL Prn Chest Pain 03/14/17 17:15 04/13/17 17:14 Pantoprazole (Protonix) 40 mg DAILY ORAL 03/15/17 09:00 04/14/17 08:59 03/15/17 08:31 Polyethylene Glycol (Miralax) 17 gm DAILYPRN PRN ORAL Constipation 03/14/17 15:45 04/13/17 15:44 Promethazine HCl (Phenergan) 25 mg Q6H PRN IV Nausea & Vomiting 03/15/17 14:30 04/14/17 14:29 03/15/17 22:01 Sodium Bicarbonate (Sodium Bicarbonate) 50 ml ONCE ONCE IV 03/16/17 09:00 03/16/17 09:01 Temazepam (Restoril) 15 mg HSPRN PRN ORAL Insomnia 03/14/17 21:00 03/21/17 20:59 Assessment/Plan Status: stable Assessment/Plan anxiety d/o ptsd paxil 20mg po qhs rec to dc Abril Hutchinson M.D. Mar 15, 2017 23:38
[2017-03-16 00:10] VITALS: BP 135/74
--- NOTE | 2017-03-16 03:00 | Consultation ---
DATE OF CONSULTATION: 03/15/2017 CARDIOLOGY CONSULTATION CONSULTING PHYSICIAN: Danny Villarreal M.D. REFERRING PHYSICIAN: Zaida Fraser M.D. REASON FOR EVALUATION: Chest pain, palpitation, and syncope. History Of Present Illness: This is a 51-year-old female, who has a history of multiple medical problems. She states she was trying to climb down some stairs and got a sudden pain in the left side of the chest and the pain was so severe. She states she lost consciousness. She fell down three flights of stairs, found herself on the floor with people around her. They were talking with her. She was able to notice that they were talking with her, but she was not able to talk back. Eventually, her picked her up and brought her to the emergency room. She told the emergency room physician that she did not hit her head because her caught her, but there was apparently loss of consciousness according to the patient herself. The pain persisted and she came to the emergency room with that pain, and again today, while she was in the bathroom, she states she developed some increase in the pain in the left side of the chest and she passed out again and she was transferred to the telemetry unit here. The pain has been persistent, although at the present time, it is not as severe as it was earlier today. There is no PND, although she has shortness of breath with activity and shortness of breath at rest. When she sleeps, she uses five pillows to keep comfortable. She has occasional dizziness on standing. She has fluttering sensation today. Past Medical History: Positive for high blood pressure. No history of heart attack. She has a history of high cholesterol. No cancer, although she has some lesions in her cervix and she wanted to have her uterus taken out, but they did not. She has had two strokes. No hepatitis or tuberculosis. No asthma. She does have a history of emphysema. No history of ulcers. She has had some kidney problems before. No urine problem. No thyroid problem. She has not had anemia. She has had ulcers. Allergies: She is allergic to Compazine, contrast, ibuprofen, Ketorolac, methylphenidate, Reglan, Zofran, penicillin, and tramadol. Social History: She smoked up until this admission. Does not drink alcoholic beverages except for social occasion. Denies any drug use. Review Of Systems: Gastrointestinal: She has had nausea and vomiting. She vomited some blood. No black or bloody stools. Genitourinary: Negative. Pulmonary: She has no coughing or wheezing all the time. Constitutional: She has some sweat. Neurological: Some numbness on the inner side of her right arm. PHYSICAL EXAMINATION: GENERAL: Shows to be middle-aged female in no respiratory distress. Neck: Supple. No jugular venous distention. No abdominojugular reflux noted. LUNGS: There are some expiratory wheezes noted. CARDIAC: Regular rate and rhythm. No heaves or thrills noted. ABDOMEN: Soft and nontender. Positive bowel sounds. CHEST WALL: Nontender to palpation. EXTREMITIES: There is no clubbing, cyanosis, nor is there any edema. Neurologic: She is awake, alert, responsive, and in no apparent respiratory distress. Laboratory Values: White count of 4.6, hemoglobin 11.3, and platelet count of 209,000. Sodium is 141, potassium 4.1, chloride 102, bicarbonate 22, BUN of 10, creatinine 1.2, glucose of 111. Liver function tests are all normal. ProBNP is only 133. Albumin of 4.6. Three sets of cardiac enzymes are all negative. Triglycerides of 732, cholesterol of 242 with LDL of 62 and HDL of 35. TSH of 1.56. Drug screen was negative. Urinalysis was fairly unremarkable. She had a chest x-ray performed that shows negative single-view and cervical spine limited exam. No definite acute abnormality or trauma was noted. Calcified mass in the pelvis, calcified fibroid is suspected, degenerative changes of L4 and L5, and no acute bony trauma. Shoulder x-rays negative. Normal CT of the head without contrast. Her electrocardiogram shows sinus rhythm, leftward axis, no ST or T wave abnormalities of any significant degree. Telemetry shows sinus. There was a 8-peak one of wide complex tachycardia, otherwise no ST or T wave abnormalities on telemetry. ASSESSMENT: 1. Reported syncope. 2. Chest pain. 3. Hypertension. 4. History of cerebrovascular accident. 5. History of chronic obstructive pulmonary disease. 6. Multiple drug intolerances. Plan: Dr. Fraser, this patient was seen in cardiac consultation. The patient has had a short run of nonsustained wide complex tachycardia. She requires further testing. She has had three sets of cardiac enzymes that were negative. An echocardiogram will be ordered for evaluation of systolic function and the fact that her cardiac enzymes are negative despite having had hours and hours, actually two days of this chest pain that makes it less unlikely that this is cardiac ischemic pain. Her blood pressure is significantly elevated tonight and she has been on some medications at home, unfortunately, including a TTS-1 patch and clonidine 0.1 mg as well as amlodipine 2.5 mg as well as benazepril 20 mg daily. Those medications have been adjusted. She is on amlodipine 10 mg and TTS patch as well. She will be placed back on her benazepril to help with control of her significant elevated blood pressure. Her renal function has been normal prior to this on this admission. Gastrointestinal evaluation in progress and the patient will have apparently endoscopy soon too. There is a slight drop in her hemoglobin from the time of admission until now. Danny Villarreal M.D. DR: Tiffanie JOB#: [id number] CC:
[2017-03-16] MEDS: DiphenhydrAMINE 50mg/ml Inj IVP PRN ×3 (03:45→16:35)
[2017-03-16 03:59] VITALS: BP 137/97
[2017-03-16 06:58] LABS: INR 0.9 (0.9-1.1); PROTHROMBIN TIME 9.8 SEC (9.30-11.50)
[2017-03-16 07:10] LABS: BASOPHILS % (AUTO) 1.1 % (0.0-2.0); LYMPHOCYTES % (AUTO) 47.2 % (20.0-45.0); MEAN CORPUSCULAR HEMOGLOBIN 27.1 PG (27.0-31.0); MEAN CORPUSCULAR HGB CONC 31.3 G/DL (32.0-36.0); MEAN CORPUSCULAR VOLUME 87 FL (80-99); MEAN PLATELET VOLUME 8.2 FL (6.5-10.1); MONOCYTES % (AUTO) 7.6 % (1.0-10.0); NEUTROPHILS % (AUTO) 41.1 % (45.0-75.0); PLATELET COUNT 204 K/UL (150-450); RED BLOOD COUNT 4.31 M/UL (4.20-5.40); RED CELL DISTRIBUTION WIDTH 16.8 % (11.6-14.8); WHITE BLOOD COUNT 4.3 K/UL (4.8-10.8)
[2017-03-16 07:37] LABS: TROPONIN I < 0.30 ng/mL (<=0.30)
[2017-03-16 07:39] LABS: THYROID STIMULATING HORMONE 2.44 uIU/mL (0.300-4.500)
[2017-03-16 07:40] LABS: CALCIUM 9.2 mg/dL (8.6-10.2); CREATININE 1.2 mg/dL (0.5-0.9); GLOMERULAR FILTRATION RATE 57.7 mL/min (>60); POTASSIUM 3.7 mEQ/L (3.4-4.9)
[2017-03-16 07:42] LABS: CHOLESTEROL/HDL RATIO 6.7 (3.3-4.4)
[2017-03-16 08:15] VITALS: BP 136/92
[2017-03-16] MEDS: LORazepam Inj 2mg/ml 1ml IV PRN ×2 (08:43→15:52)
[2017-03-16] MEDS ORDERED: Lidocaine 1% Plain 30 ml INJ ONE (09:00)
[2017-03-16] MEDS ORDERED: Heparin 2000 units/Ns 1000ml INJ ONE (09:00)
[2017-03-16] MEDS ORDERED: Dyna-Hex 2% Top Sol 8oz TOPIC SCH (09:00)
[2017-03-16] MEDS: Lisinopril 10mg tab ORAL SCH (09:00)
[2017-03-16] MEDS ORDERED: Sodium Bicarbonate 50ml Carp IV ONE (09:00)
[2017-03-16] MEDS: D5 1/2NS 1,000 ML IV SCH (11:53)
[2017-03-16 12:03] VITALS: BP 146/91
--- NOTE | 2017-03-16 12:34 | GI Progress Note ---
Assessment/Plan Problems: (1) Intractable nausea and vomiting ICD Codes: R11.2 - Nausea with vomiting, unspecified SNOMED: 117102027, [id number] (2) Upper GI bleeding ICD Codes: K92.2 - Gastrointestinal hemorrhage, unspecified SNOMED: 57773806 (3) Anemia ICD Codes: D64.9 - Anemia, unspecified SNOMED: 165895265 Status: unchanged Status Narrative Discussed with Dr. Ball. Assessment/Plan EGD rescheduled for tomorrow, cancelled today. - resume diet, maintain NPO + IVFs - hold all blood thinners tonight cont Phenergan consider reducing opioid use ppi monitor H&H, prn tranfusions fu labs Subjective Subjective abdominal pain Objective Last 24 Hour Vital Signs Date Time Temp Pulse Resp B/P (MAP) Pulse Ox O2 Delivery O2 Flow Rate FiO2 03/16/17 12:03 96.6 78 18 146/91 95 Room Air 03/16/17 12:00 82 03/16/17 11:55 86 03/16/17 11:50 78 03/16/17 08:15 97.2 73 18 136/92 96 Room Air 03/16/17 08:00 74 03/16/17 04:00 75 03/16/17 03:59 97.8 78 19 137/97 98 Room Air 78 03/16/17 00:12 75 76 82 03/16/17 00:10 97.7 75 19 135/74 96 Room Air 75 03/16/17 00:00 78 03/15/17 21:00 152/90 03/15/17 20:45 97.7 87 19 149/92 98 Room Air 87 03/15/17 20:00 77 03/15/17 17:55 175/122 03/15/17 16:52 98.1 03/15/17 16:00 80 03/15/17 16:00 97.5 76 19 160/133 95 Room Air Intake and Output 03/16/17 03/17/17 19:00 07:00 # Voids 1 Laboratory Tests Test 03/16/17 04:35 White Blood Count 4.3 K/UL (4.8-10.8) L Red Blood Count 4.31 M/UL (4.20-5.40) Hemoglobin 11.7 G/DL (12.0-16.0) L Hematocrit 37.4 % (37.0-47.0) Mean Corpuscular Volume 87 FL (80-99) Mean Corpuscular Hemoglobin 27.1 PG (27.0-31.0) Mean Corpuscular Hemoglobin Concent 31.3 G/DL (32.0-36.0) L Red Cell Distribution Width 16.8 % (11.6-14.8) H Platelet Count 204 K/UL (150-450) Mean Platelet Volume 8.2 FL (6.5-10.1) Neutrophils (%) (Auto) 41.1 % (45.0-75.0) L Lymphocytes (%) (Auto) 47.2 % (20.0-45.0) H Monocytes (%) (Auto) 7.6 % (1.0-10.0) Eosinophils (%) (Auto) 3.0 % (0.0-3.0) Basophils (%) (Auto) 1.1 % (0.0-2.0) Reticulocyte Count 1.8 % (0.0-2.0) Prothrombin Time 9.8 SEC (9.30-11.50) Prothromb Time International Ratio 0.9 (0.9-1.1) Activated Partial Thromboplast Time 22 SEC (23-33) L Sodium Level 144 mEQ/L (135-145) Potassium Level 3.7 mEQ/L (3.4-4.9) Chloride Level 102 mEQ/L (98-107) Carbon Dioxide Level 26 mEQ/L (20-30) Anion Gap 16 (5-15) H Blood Urea Nitrogen 10 mg/dL (7-23) Creatinine 1.2 mg/dL (0.5-0.9) H Estimat Glomerular Filtration Rate 57.7 mL/min (>60) Glucose Level 108 mg/dL (74-106) H Calcium Level 9.2 mg/dL (8.6-10.2) Iron Level 73 ug/dL (37-145) Total Iron Binding Capacity 425 ug/dL (250-400) H Percent Iron Saturation 17 % (15-50) Unsaturated Iron Binding 352 ug/dL (112-346) H Ferritin 23 ng/mL (13-150) Troponin I < 0.30 ng/mL (<=0.30) Triglycerides Level 554 mg/dL (< 150) H Cholesterol Level 256 mg/dL (< 200) H LDL Cholesterol 107 mg/dL (60-99) H HDL Cholesterol 38 mg/dL (> 60) Cholesterol/HDL Ratio 6.7 (3.3-4.4) H Carcinoembryonic Antigen 2.1 ng/mL Vitamin B12 Level 325 pg/mL (211-946) Folate Pending Thyroid Stimulating Hormone (TSH) 2.440 uIU/mL (0.300-4.500) Free Thyroxine 0.94 ng/dL (0.86-1.85) Height (Feet): 5 Height (Inches): 5.00 Weight (Pounds): 170 General Appearance: no apparent distress, alert Cardiovascular: normal rate Respiratory/Chest: normal breath sounds, no respiratory distress Abdominal Exam: normal bowel sounds, non tender, soft Extremities: normal range of motion Maryam Tolentino N.P. Mar 16, 2017 12:34
[2017-03-16 15:27] VITALS: BP 146/103
[2017-03-16 15:48] VITALS: BP 146/103
[2017-03-16] MEDS: Enalaprilat 2.5mg/2ml Inj IV PRN (15:48)
--- NOTE | 2017-03-16 16:23 | Cardiology Progress Note ---
Assessment/Plan Assessment/Plan 1. Reported syncope. 2. Chest pain. 3. Hypertension. 4. History of cerebrovascular accident. 5. History of chronic obstructive pulmonary disease. 6. Multiple drug intolerances. she has refused bp medication pt claims was at [facility] and was told has aneurysm denies being at [facility] in January [place] data reviwed was dcd form [facility] 01/2017 with htn urgencyand pain med seekign behavior [facility] siri reviwed dc summary printed and place din chart includes : . A battery of diagnostics were performed to rule out aneurysm, address her ongoing "chest pain", and rule out sequelae from her hypertensive crisis. A good quality Coronary CTA ruled out coronary artery disease. Phamacologic stress test was showed no evidence of myocardial infarction. A Brain CT performed due to her complaint of headache with ongoing hypertension revealed no acute hemorrhage, hydrocephalus, mass effect or midline shift. Bilateral Carotid artery duplex without significant stenosis. Thoracic and Abdominal MRA showed no evidence of aortic aneurysm, dissection of significant stenosis, no dilated ascending aorta. Echocardiogram was normal. Chest Xray revealed no pneumothorax, effusions, vascular congestion, or consolidations, unremarkable silhouette. Therefore, Cardiology and Cardiac surgery teams concluded she has no indication for cardiac surgery . Chest XRay, Chest CT and MRA did however, reveal an incidental finding of large hiatal hernia which correlates with patient's ongoing complaint of mid- subxyphoid "chest pain" and early satiety no need for further cardiac larson at this time Subjective Cardiovascular: Denies: chest pain, lightheadedness Respiratory: Denies: shortness of breath Gastrointestinal/Abdominal: Denies: abdomen distended Genitourinary: Denies: no symptoms Subjective c/o spasm in thelma neck Objective Last 24 Hour Vital Signs Date Time Temp Pulse Resp B/P (MAP) Pulse Ox O2 Delivery O2 Flow Rate FiO2 03/16/17 15:48 146/103 03/16/17 15:27 96.1 80 18 146/103 95 Room Air 03/16/17 12:03 96.6 78 18 146/91 95 Room Air 03/16/17 12:00 82 03/16/17 11:55 86 03/16/17 11:50 78 03/16/17 08:15 97.2 73 18 136/92 96 Room Air 03/16/17 08:00 74 03/16/17 04:00 75 03/16/17 03:59 97.8 78 19 137/97 98 Room Air 78 03/16/17 00:12 75 76 82 03/16/17 00:10 97.7 75 19 135/74 96 Room Air 75 03/16/17 00:00 78 03/15/17 21:00 152/90 03/15/17 20:45 97.7 87 19 149/92 98 Room Air 87 03/15/17 20:00 77 03/15/17 17:55 175/122 03/15/17 16:52 98.1 General Appearance: no apparent distress, alert Neck: supple Cardiovascular: normal rate, regular rhythm Respiratory/Chest: lungs clear, normal breath sounds Abdomen: normal bowel sounds, non tender, soft Extremities: no swelling Intake and Output 03/16/17 03/17/17 19:00 07:00 Intake Total 520 ml Balance 520 ml Intake Oral 120 ml IV Total 400 ml Laboratory Tests Test 03/16/17 04:35 White Blood Count 4.3 K/UL (4.8-10.8) L Red Blood Count 4.31 M/UL (4.20-5.40) Hemoglobin 11.7 G/DL (12.0-16.0) L Hematocrit 37.4 % (37.0-47.0) Mean Corpuscular Volume 87 FL (80-99) Mean Corpuscular Hemoglobin 27.1 PG (27.0-31.0) Mean Corpuscular Hemoglobin Concent 31.3 G/DL (32.0-36.0) L Red Cell Distribution Width 16.8 % (11.6-14.8) H Platelet Count 204 K/UL (150-450) Mean Platelet Volume 8.2 FL (6.5-10.1) Neutrophils (%) (Auto) 41.1 % (45.0-75.0) L Lymphocytes (%) (Auto) 47.2 % (20.0-45.0) H Monocytes (%) (Auto) 7.6 % (1.0-10.0) Eosinophils (%) (Auto) 3.0 % (0.0-3.0) Basophils (%) (Auto) 1.1 % (0.0-2.0) Reticulocyte Count 1.8 % (0.0-2.0) Prothrombin Time 9.8 SEC (9.30-11.50) Prothromb Time International Ratio 0.9 (0.9-1.1) Activated Partial Thromboplast Time 22 SEC (23-33) L Sodium Level 144 mEQ/L (135-145) Potassium Level 3.7 mEQ/L (3.4-4.9) Chloride Level 102 mEQ/L (98-107) Carbon Dioxide Level 26 mEQ/L (20-30) Anion Gap 16 (5-15) H Blood Urea Nitrogen 10 mg/dL (7-23) Creatinine 1.2 mg/dL (0.5-0.9) H Estimat Glomerular Filtration Rate 57.7 mL/min (>60) Glucose Level 108 mg/dL (74-106) H Calcium Level 9.2 mg/dL (8.6-10.2) Iron Level 73 ug/dL (37-145) Total Iron Binding Capacity 425 ug/dL (250-400) H Percent Iron Saturation 17 % (15-50) Unsaturated Iron Binding 352 ug/dL (112-346) H Ferritin 23 ng/mL (13-150) Troponin I < 0.30 ng/mL (<=0.30) Triglycerides Level 554 mg/dL (< 150) H Cholesterol Level 256 mg/dL (< 200) H LDL Cholesterol 107 mg/dL (60-99) H HDL Cholesterol 38 mg/dL (> 60) Cholesterol/HDL Ratio 6.7 (3.3-4.4) H Carcinoembryonic Antigen 2.1 ng/mL Vitamin B12 Level 325 pg/mL (211-946) Folate Pending Thyroid Stimulating Hormone (TSH) 2.440 uIU/mL (0.300-4.500) Free Thyroxine 0.94 ng/dL (0.86-1.85) BRINA CHAVIRA Mar 16, 2017 16:23
--- NOTE | 2017-03-16 16:32 | Diagnostic Imaging Report ---
Indications: Needs long-term IV access Technique: Ultrasound confirms patent compressible left basilic vein. Total sterile technique, including sterile probe cover and sterile gel, hat, mask,, sterile gown, large sterile drape, and preparation with 2% chlorhexidine utilized. Local anesthesia with 1% lidocaine. Under real-time ultrasound guidance, puncture basilic vein using 21-gauge needle, documented and archived, passage 0.018 guidewire under direct fluoroscopy, which was used to determine appropriate catheter length, exchange for 5 Georgian peel-away sheath. 5 Georgian Bard dual-lumen power PICC cut to 45 cm. It was inserted through the peel-away sheath. Peel-away sheath and guidewire removed. Catheter fixed to the skin. Both catheter ports aspirated and flushed. Patient tolerated procedure well, without immediate complication. Digital radiograph documents satisfactory catheter tip position, at the cavoatrial junction. Total fluoroscopy time 0.1 minutes. Total dose area product 3.8 dGycm2 Impression: Successful placement of left basilic PICC under sonographic and fluoroscopic guidance, as described above.
[2017-03-16] MEDS ORDERED: PARoxetine 20mg tab ORAL SCH (21:00)
[2017-03-16] MEDS ORDERED: D5 1/2NS 1000ml IV ONE (21:14)
--- NOTE | 2017-03-16 23:00 | Pulmonology Progress Note ---
Assessment/Plan Problems: (1) Intractable nausea and vomiting (2) Upper GI bleeding (3) Chest pain (4) Syncopal seizure (5) HTN (hypertension) Assessment/Plan d/w dr Villarreal who reviewed pts charts from [facility] and [facility], pt has the habit of complaining of chest pain and seeking opioids for relief will discharge with f/u with pain and assurance specialist close f/u Subjective ROS Limited/Unobtainable: No Interval Events: no new complains Allergies: Coded Allergies: METHYLPHENIDATE (Verified Allergy, Unknown, 03/14/17) METOCLOPRAMIDE (Verified Allergy, Unknown, 03/14/17) ONDANSETRON (Verified Allergy, Unknown, 03/14/17) TRAMADOL (Verified Allergy, Unknown, 03/14/17) CHLORPROMAZINE (Verified Adverse Reaction, Intermediate, Shortness of Breath, 06/03/14) KETOROLAC (Verified Adverse Reaction, Intermediate, 06/03/14) PENICILLINS (Verified Adverse Reaction, Intermediate, 06/03/14) IBUPROFEN (Unverified Adverse Reaction, Unknown, 06/03/14) Uncoded Allergies: CONTRAST DYE (Allergy, Unknown, 03/14/17) Objective Last 24 Hour Vital Signs Date Time Temp Pulse Resp B/P (MAP) Pulse Ox O2 Delivery O2 Flow Rate FiO2 03/16/17 16:00 87 03/16/17 15:48 146/103 03/16/17 15:27 96.1 80 18 146/103 95 Room Air 03/16/17 12:03 96.6 78 18 146/91 95 Room Air 03/16/17 12:00 82 03/16/17 11:55 86 03/16/17 11:50 78 03/16/17 08:15 97.2 73 18 136/92 96 Room Air 03/16/17 08:00 74 03/16/17 04:00 75 03/16/17 03:59 97.8 78 19 137/97 98 Room Air 78 03/16/17 00:12 75 76 82 03/16/17 00:10 97.7 75 19 135/74 96 Room Air 75 03/16/17 00:00 78 Intake and Output 03/16/17 03/17/17 19:00 07:00 Intake Total 990 ml Balance 990 ml Intake Oral 390 ml IV Total 600 ml # Voids 1 General Appearance: WD/WN HEENT: normocephalic Respiratory/Chest: chest wall non-tender, lungs clear Breasts: no masses Cardiovascular: normal rate Abdomen: normal bowel sounds Extremities: no cyanosis Skin: no ulcers Laboratory Tests 03/16/17 04:35: White Blood Count 4.3L, Red Blood Count 4.31, Hemoglobin 11.7L, Hematocrit 37.4 , Mean Corpuscular Volume 87, Mean Corpuscular Hemoglobin 27.1, Mean Corpuscular Hemoglobin Concent 31.3L, Red Cell Distribution Width 16.8H, Platelet Count 204, Mean Platelet Volume 8.2, Neutrophils (%) (Auto) 41.1L, Lymphocytes (%) (Auto) 47.2H, Monocytes (%) (Auto) 7.6, Eosinophils (%) (Auto) 3.0, Basophils (%) (Auto) 1.1, Reticulocyte Count 1.8, Prothrombin Time 9.8, Prothromb Time International Ratio 0.9, Activated Partial Thromboplast Time 22L , Sodium Level 144, Potassium Level 3.7, Chloride Level 102, Carbon Dioxide Level 26, Anion Gap 16H, Blood Urea Nitrogen 10, Creatinine 1.2H, Estimat Glomerular Filtration Rate 57.7, Glucose Level 108H, Calcium Level 9.2, Iron Level 73, Total Iron Binding Capacity 425H, Percent Iron Saturation 17, Unsaturated Iron Binding 352H, Ferritin 23, Troponin I < 0.30, Triglycerides Level 554H, Cholesterol Level 256H, LDL Cholesterol 107H, HDL Cholesterol 38, Cholesterol/HDL Ratio 6.7H, Carcinoembryonic Antigen 2.1, Vitamin B12 Level 325 , Folate [Pending], Thyroid Stimulating Hormone (TSH) 2.440, Free Thyroxine 0.94 JANET KEMP Mar 16, 2017 23:00
--- NOTE | 2017-03-17 09:46 | Progress Note ---
DATE: 03/16/2017 Subjective: The patient is presenting with anxiety, depressed mood, anhedonia, worthlessness, and decreased energy. She spoke about being distant from her children, closer to her family. The patient is going to be discharged today. At the time of discharge, the patient is not in any danger to self or others. Mental Status Examination: The patient is alert and oriented to time, self, place, and situation she is in. Mood is anxious. Affect is flat. Thought process is concrete. Thought content, no suicidal and homicidal ideation. ASSESSMENT: AXIS I: Opiate pain dependence AXIS II: Plan: We will continue to provide the patient with supportive therapy and reality orientation. Abril Sotelo M.D. DR: Mayra JOB#: [id number] CC:
--- NOTE | 2017-03-17 16:37 | Cardiology Report ---
APPROVED REPORT EKG Measurement Heart [id number] Normal sinus rhythm Moderate voltage criteria for LVH, may be normal variant Borderline ECG
--- NOTE | 2017-03-18 07:36 | Discharge Summary ---
Discharge Summary Hospital Course Date of Admission Mar 14, 2017 at 14:54 Date of Discharge Mar 16, 2017 at 21:15 Admitting Diagnosis acs-syncope HPI Catalina Rodríguez is a 51 year old female who was admitted on Mar 14, 2017 at 14:54 for Acs-Syncope Hospital Course [id number] Discharge Discharge Disposition Patient was discharged to Home (01) Discharge Diagnoses: Consuelo Radford NP Mar 18, 2017 07:36
--- NOTE | 2017-03-18 16:26 | Cardiology Report ---
APPROVED REPORT EXAM: Two-dimensional and M-mode echocardiogram with Doppler and color Doppler. INDICATION LV function M-Mode DIMENSIONS IVSd1.3 (0.7-1.1cm)Left Atrium (MM)4.5 (1.6-4.0cm) LVDd3.1 (3.5-5.6cm)Aortic Root2.8 (2.0-3.7cm) PWd1.9 (0.7-1.1cm)Aortic Cusp Exc.1.8 (1.5-2.0cm) LVDs1.6 (2.5-4.0cm) PWs2.3 cm Normal left ventricular chamber size, hyperdynamic systolic function and wall motion with cavity obliteration . Left ventricular ejection fraction estimated to be 70-75 %. Moderate left ventricular hypertrophy. Anterior Echo-free space, may be due to pericardial fat or effusion. Moderate left atrial enlargement. Mild right atrial enlargement. Right ventricular chamber size is within normal limits. Focal aortic valve sclerosis with adequate cusp excursion. Thickened mitral valve leaflets with normal excursion. Mitral annulus and aortic root calcification. Pulmonic valve not well visualized. Normal tricuspid valve structure. IVC at normal size with physiologic collapse. A color flow and spectral Doppler study was performed and revealed: Trace mitral regurgitation. Mitral diastolic velocities suggest reduced left ventricular relaxation c/w mild LV diastolic dysfunction (Grade I). PG 24 mg of 6 recorded in thelma LV due to cavity obliteration Trace to mild tricuspid regurgitation. Tricuspid systolic velocities suggests peak right ventricular systolic pressure of 29 mmHg.
--- NOTE | 2017-03-19 04:00 | Discharge Summary 2 SIG ---
DATE OF ADMISSION: 03/14/2017 DATE OF DISCHARGE: 03/16/2017 CONSULTANTS: 1. Abril Sotelo M.D. 2. Joshua Ball M.D. 3. Danny Villarreal M.D. Brief Hospital Course: The patient is a 51-year-old female with history of hypertension, aneurysm, and atrial flutter, presented to ED for complaints of chest pain with episodes of vomiting blood and syncope with left shoulder dislocation. She stated that she was trying to climb down the stairs and felt left-sided chest pain. She lost consciousness and fell down 3 flights of stairs. She woke up. She opened her eyes and saw people around her. However, she could not speak eventually her picked her up and brought her to ED. She took nitroglycerin and aspirin and did not help alleviate the pain. On evaluation at ED, she was given morphine and Ativan for anxiety. Head CT was negative. Left shoulder x-ray was negative for fractures or dislocation. Lumbar spine was likewise negative for acute bony trauma with degenerative changes at L4-L5. The cervical spine was negative for trauma. Initial troponin was negative. However, due to the patient's risk factors for ACS, the patient was admitted to telemetry for cardiac workup. She was also seen by GI. She had persistent vomiting. The patient claimed to have persistent vomiting for the past two days and noted to have bloody emesis. She complained of difficulty swallowing and unable to maintain any food down. She was given proton pump inhibitors. Her EKG was in normal sinus rhythm with leftward axis. No ST to T-wave abnormality of any significant degree. On telemetry, the patient was in sinus. There was a peak of wide complex tachycardia. Otherwise, no ST to T-wave abnormalities. Three sets of cardiac enzymes were negative. Her blood pressure had been running high. Antihypertensives were adjusted. However, she refused BP medication. The patient claims that she was told she had aneurysm. Report from [facility] and [facility] hospitalization was obtained. The thoracic and abdominal MRA showed no evidence of aortic aneurysm and dissection of significant stenosis. No dilated ascending aorta. Per [facility] report, the patient was then seen by psychiatry as the patient has med seeking behavior and asking for Ativan. The patient was irritable and anxious. She was diagnosed to have anxiety disorder with posttraumatic disorder. Ativan was decreased. She was given Paxil 20 mg at bedtime. The patient was eventually discharged home. Advised to follow up with pain management and client relation specialist for close follow up. FINAL DIAGNOSES: 1. Reported syncope. 2. Opioid dependence. 3. Intractable nausea and vomiting. 4. Hypertension. 5. Chronic obstructive pulmonary disease. 6. Upper gastrointestinal bleed. Disposition: The patient was discharged home. Advised to follow up with the PMD and Cardiology in a week. DISCHARGE MEDICATIONS: Refer to medication list. FOLLOWUP: Follow up with PMD and Cardiology. ACTIVITY: As tolerated. Zaida Fraser M.D. I have been assigned to dictate discharge summary on this account and I was not involved in the patient's management. Consuelo Radford N.P. DR: DAVID JOB#: [id number] CC:
== END 2017-03-16 21:15 | disposition home or self-care (01) | DRG 203 ==
LOC: EMR 14:20 → 2E 14:54 → EDBEDREQ 15:02 → 2E 17:17
PROC: 02HV33Z Insertion of Infusion Device into Superior Vena Cava, Percutaneous Approach (ICD-10-PCS; principal; 2017-03-16)
DX: R07.9 Chest pain, unspecified (principal); R56.9 Unspecified convulsions; F11.20 Opioid dependence, uncomplicated; K92.2 Gastrointestinal hemorrhage, unspecified; R55 Syncope and collapse; I10 Essential (primary) hypertension; Z88.6 Allergy status to analgesic agent; Z88.0 Allergy status to penicillin; Z88.8 Allergy status to other drugs, medicaments and biological substances; Z91.041 Radiographic dye allergy status; Z76.5 Malingerer [conscious simulation]; Z86.73 Personal history of transient ischemic attack (TIA), and cerebral infarction without residual deficits; R11.2 Nausea with vomiting, unspecified; D64.9 Anemia, unspecified; J44.9 Chronic obstructive pulmonary disease, unspecified; F41.9 Anxiety disorder, unspecified; F43.10 Post-traumatic stress disorder, unspecified
CPT/HCPCS: 36415; 36569; 70450; 71010; 72020; 72040; 76937; 80048; 80053; 80061; 80300; 81003; 82378; 82550; 82553; 82607; 82728; 82746; 83540; 83550; 83690; 83880; 84439; 84443; 84484; 85025; 85044; 85610; 85730; 86140; 93005; 93306; 99285

== ENCOUNTER 2017-03-29 10:59 | Inpatient (IN) | payer OTHER ==
[2017-03-29] VITALS (7 sets, daily range): BP systolic 153–204; BP diastolic 83–129
[~2017-03-29] VITALS: Ht 167.6 cm; Wt 79.4 kg
[~2017-03-29 10:59] MED LIST changes: +CATAPRES-TTS 11 EACH TDERMAL; +LOTENSIN20 MG ORAL; +NORVASC2.5 MG ORAL
[2017-03-29] MEDS ORDERED: LORazepam Inj 2mg/ml 1ml IV ONE (11:30)
[2017-03-29] MEDS ORDERED: Morphine Sulfate 4mg/ml Inj IVP ONE (11:30)
[2017-03-29] MEDS ORDERED: ATIVAN1 MG ORAL (11:31)
[2017-03-29] MEDS ORDERED: ALBUTEROL2.5 MG/3 M INH (11:31)
[2017-03-29] MEDS ORDERED: ASPIR 8181 MG ORAL (11:33)
--- NOTE | 2017-03-29 12:09 | Diagnostic Imaging Report ---
Indication: Dyspnea Comparison: 03/14/17 A single view chest radiograph was obtained. Findings: Cardiomediastinal appearance is within normal limits for age. Pulmonary vascularity is appropriate. The diaphragmatic contour is smooth and costophrenic angles are sharp. No pleural effusions are identified. Hiatal hernia is noted. The bones are unremarkable. There is no change. Impression: No acute findings
[2017-03-29 12:17] LABS: APPEARANCE,URINE CLEAR; KETONES,URINE NEGATIVE (NEGATIVE); LEUKOCYTE ESTERASE ,URINE 1+ (NEGATIVE); NITRITE,URINE NEGATIVE (NEGATIVE); PH,URINE 7 (4.5-8.0); PROTEIN,URINE NEGATIVE (NEGATIVE); UROBILINOGEN,URINE NORMAL MG/DL (0.0-1.0)
[2017-03-29 12:32] LABS: BACTERIA,URINE FEW /HPF; RBC,URINE 0-2 /HPF (0 - 2); SQUAMOUS EPITHELIAL CELL,UR FEW /LPF (NONE/OCC)
[2017-03-29] MEDS ORDERED: DiphenhydrAMINE 50mg/ml Inj IVP ONE ×2 (13:15→15:15)
[2017-03-29] MEDS ORDERED: HYDROmorphone 1mg/ml Carpuject IVP ONE ×2 (13:15→14:30)
[2017-03-29 13:24] LABS: BASOPHILS % (AUTO) 0.9 % (0.0-2.0); EOSINOPHILS % (AUTO) 3.4 % (0.0-3.0); LYMPHOCYTES % (AUTO) 23.5 % (20.0-45.0); MEAN CORPUSCULAR HEMOGLOBIN 27.2 PG (27.0-31.0); MEAN CORPUSCULAR HGB CONC 31.7 G/DL (32.0-36.0); MEAN CORPUSCULAR VOLUME 86 FL (80-99); MEAN PLATELET VOLUME 7.3 FL (6.5-10.1); MONOCYTES % (AUTO) 5.8 % (1.0-10.0); NEUTROPHILS % (AUTO) 66.3 % (45.0-75.0); PLATELET COUNT 267 K/UL (150-450); RED BLOOD COUNT 4.97 M/UL (4.20-5.40); WHITE BLOOD COUNT 4.9 K/UL (4.8-10.8)
[2017-03-29 13:38] LABS: INR 0.9 (0.9-1.1); PROTHROMBIN TIME 9.3 SEC (9.30-11.50)
[2017-03-29 13:47] LABS: ALANINE AMINOTRANSFERASE 17 U/L (3-33); ALBUMIN/GLOBULIN RATIO 1.5 (1.0-2.7); ANION GAP 13 (5-15); ASPARTATE AMINO TRANSFERASE 15 U/L (5-40); CALCIUM 10.1 mg/dL (8.6-10.2); CARBON DIOXIDE 26 mEQ/L (20-30); CHLORIDE 101 mEQ/L (98-107); CREATININE 0.9 mg/dL (0.5-0.9); GLOMERULAR FILTRATION RATE > 60 mL/min (>60); HEMOLYSIS 3; POTASSIUM 4.8 mEQ/L (3.4-4.9); SODIUM 140 mEQ/L (135-145); TOTAL PROTEIN 7.4 g/dL (6.6-8.7); TROPONIN I < 0.30 ng/mL (<=0.30)
[2017-03-29 14:25] LABS: ERYTHROCYTE SEDIMENTATION RATE 16 MM/HR (0-20)
--- NOTE | 2017-03-29 15:08 | Emergency Room Report ---
History of Present Illness General Chief Complaint: Chest Pain Source: Patient, Medical Record Present Illness HPI Patient presents after passing out and falling and hitting her R chest. She passed out recently and was admitted to the hospital. She does not know why or what the final diagnosis was related to passing out. She has pain where she hit her chest = 9/10, pleuritic and sharp. She also complains of L sided chest pressure. This is related as severe. She has had cardiac cath in the past. She states she has a small aortic aneurism. She took aspirin this morning. After passing out she tried taking nitro without any change in the pain. She has been nauseated and started vomiting. She was not nauseated or vomiting when she passed out. She was discharged after an alleged syncopal seizure 03/16. D/C dx: 1. Reported syncope. 2. Opioid dependence. 3. Intractable nausea and vomiting. 4. Hypertension. 5. Chronic obstructive pulmonary disease. 6. Upper gastrointestinal bleed. She took BP meds in AM. She says her blood pressure has been out of control. Blood pressure meds recently increased, but it is still out of control. Asthma/COPD HTN Allergies: Coded Allergies: METHYLPHENIDATE (Verified Allergy, Unknown, 03/14/17) METOCLOPRAMIDE (Verified Allergy, Unknown, 03/14/17) ONDANSETRON (Verified Allergy, Unknown, 03/14/17) TRAMADOL (Verified Allergy, Unknown, 03/14/17) CHLORPROMAZINE (Verified Adverse Reaction, Intermediate, Shortness of Breath, 06/03/14) KETOROLAC (Verified Adverse Reaction, Intermediate, 06/03/14) PENICILLINS (Verified Adverse Reaction, Intermediate, 06/03/14) IBUPROFEN (Unverified Adverse Reaction, Unknown, 06/03/14) Uncoded Allergies: CONTRAST DYE (Allergy, Unknown, 03/14/17) Patient History Past Medical History: see triage record Social History: Reports: smoking Social History Narrative with sig other at home Last Menstrual Period: 5 years ago Reviewed Nursing Documentation: PMH: Agreed, PSxH: Agreed Nursing Documentation-PMH Past Medical History: No History, Except For Hx Cardiac Problems: Yes Hx Hypertension: Yes Hx Asthma: Yes Hx COPD: Yes - Emphysema Hx Cancer: No Hx Gastrointestinal Problems: No Hx Neurological Problems: Yes - Aortic aneurysm Hx 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 Hx Syncope: Yes Review of Systems All Other Systems: negative except mentioned in HPI Physical Exam Vital Signs Date Time Temp Pulse Resp B/P (MAP) Pulse Ox O2 Delivery O2 Flow Rate FiO2 03/29/17 11:07 97.9 84 16 195/121 100 Room Air Sp02 EP Interpretation: reviewed, normal General Appearance: well appearing, GCS 15, non-toxic, moderate distress - vomiting and c/o pain Head: normocephalic Eyes: bilateral eye normal inspection, bilateral eye PERRL ENT: moist mucus membranes Neck: supple Respiratory: lungs clear, normal breath sounds, other - R chest wall tenderness without crepetance Cardiovascular #1: regular rate, rhythm, no edema, no JVD, no murmur Cardiovascular #2: 2+ radial (R) Gastrointestinal: normal inspection, normal bowel sounds, non tender, no mass, non-distended Genitourinary: no CVA tenderness Musculoskeletal: back normal, gait/station normal, normal range of motion, no calf tenderness Neurologic: alert, oriented x3, grossly normal Psychiatric: anxious - and pressuring for pain medicines Skin: normal inspection, warm/dry Medical Decision Making Diagnostic Impression: Primary Impression: Syncope Qualified Codes: R55 - Syncope and collapse Additional Impressions: Chest wall contusion Qualified Codes: S20.211A - Contusion of right front wall of thorax, initial encounter Chest pain Qualified Codes: R07.9 - Chest pain, unspecified Persistent vomiting Hypertensive urgency Opiate seeking behavior Hiatal hernia ER Course Patient with syncope and chest pain. Ddx: AMI, ACS, PE, change in aneurism, opiate dependence, arrhythmia, vasovagal amongst others. Clinically, PE less likely. Complicated patient with multiple allergies and etiologies for syncope. Chest contusion suspected as clinically, no fracture. Evaluation with EKG, CXR, labs. Treatment with antiemetic, pepcid, analgesics. BP might need to be addressed. EKG - no injury. CXR, no fx or infiltrates (aneurism not appreciated). Labs with normal WBC and H/H, renal function and negative tox screen. Repeated doses of phenergan, dilaudid and benadryl. Clinically much improved, though still c/o pain. BP remains high and needs to be addressed. BP Treated with hydralazine (labetalol not avail). Patient continues to vomit. Also c/o pain. Discussed and agreed on plan for treatment of both (after multiple meds given in ED). Admit tele Dr. Fraser. Laboratory Tests Test 03/29/17 11:55 03/29/17 13:12 Urine Color Pale yellow Urine Appearance Clear Urine pH 7 (4.5-8.0) Urine Specific [place] 1.010 (1.005-1.035) Urine Protein Negative (NEGATIVE) Urine Glucose (UA) Negative (NEGATIVE) Urine Ketones Negative (NEGATIVE) Urine Occult Blood Negative (NEGATIVE) Urine Nitrite Negative (NEGATIVE) Urine Bilirubin Negative (NEGATIVE) Urine Urobilinogen Normal MG/DL (0.0-1.0) Urine Leukocyte Esterase 1+ (NEGATIVE) H Urine RBC 0-2 /HPF (0 - 2) Urine WBC 2-4 /HPF (0 - 2) Urine Squamous Epithelial Cells Few /LPF (NONE/OCC) Urine Bacteria Few /HPF (NONE) Urine Opiates Screen Negative (NEGATIVE) Urine Barbiturates Screen Negative (NEGATIVE) Phencyclidine (PCP) Screen Negative (NEGATIVE) Urine Amphetamines Screen Negative (NEGATIVE) Urine Benzodiazepines Screen Negative (NEGATIVE) Urine Cocaine Screen Negative (NEGATIVE) Urine Marijuana (THC) Screen Negative (NEGATIVE) White Blood Count 4.9 K/UL (4.8-10.8) Red Blood Count 4.97 M/UL (4.20-5.40) Hemoglobin 13.5 G/DL (12.0-16.0) Hematocrit 42.8 % (37.0-47.0) Mean Corpuscular Volume 86 FL (80-99) Mean Corpuscular Hemoglobin 27.2 PG (27.0-31.0) Mean Corpuscular Hemoglobin Concent 31.7 G/DL (32.0-36.0) L Red Cell Distribution Width 16.0 % (11.6-14.8) H Platelet Count 267 K/UL (150-450) Mean Platelet Volume 7.3 FL (6.5-10.1) Neutrophils (%) (Auto) 66.3 % (45.0-75.0) Lymphocytes (%) (Auto) 23.5 % (20.0-45.0) Monocytes (%) (Auto) 5.8 % (1.0-10.0) Eosinophils (%) (Auto) 3.4 % (0.0-3.0) H Basophils (%) (Auto) 0.9 % (0.0-2.0) Erythrocyte Sedimentation Rate 16 MM/HR (0-20) Prothrombin Time 9.3 SEC (9.30-11.50) Prothrombin Time INR 0.9 (0.9-1.1) PTT 22 SEC (23-33) L Sodium Level 140 mEQ/L (135-145) Potassium Level 4.8 mEQ/L (3.4-4.9) Chloride Level 101 mEQ/L (98-107) Carbon Dioxide Level 26 mEQ/L (20-30) Anion Gap 13 (5-15) Blood Urea Nitrogen 11 mg/dL (7-23) Creatinine 0.9 mg/dL (0.5-0.9) Estimate Glomerular Filtration Rate > 60 mL/min (>60) Glucose Level 101 mg/dL (74-106) Calcium Level 10.1 mg/dL (8.6-10.2) Total Bilirubin 0.3 mg/dL (0.0-1.2) Aspartate Amino Transferase (AST) 15 U/L (5-40) Alanine Aminotransferase (ALT) 17 U/L (3-33) Alkaline Phosphatase 66 U/L (35-104) Total Creatine Kinase 85 U/L (26-140) Troponin I < 0.30 ng/mL (<=0.30) Pro-B-Type Natriuretic Peptide 67 pg/mL (0-125) Total Protein 7.4 g/dL (6.6-8.7) Albumin 4.5 g/dL (3.5-5.2) Globulin 2.9 g/dL Albumin/Globulin Ratio 1.5 (1.0-2.7) Thyroid Stimulating Hormone (TSH) 1.020 uIU/mL (0.300-4.500) EKG Diagnostic Results Rate: normal Rhythm: NSR ST Segments: other - LVH Rhythm Strip Diag. Results EP Interpretation: yes Rhythm: NSR, no PVC's, no ectopy Chest X-Ray Diagnostic Results Chest X-Ray Diagnostic Results : Chest X-Ray Ordered: Yes # of Views/Limited/Complete: 1 View Indication: Chest Pain EP Interpretation: Yes Interpretation: no consolidation, no effusion, no pneumothorax, other - no fx seen Impression: No acute disease Electronically Signed by: Electronically signed by Abilio Hough MD Last Vital Signs Date Time Temp Pulse Resp B/P (MAP) Pulse Ox O2 Delivery O2 Flow Rate FiO2 03/30/17 00:00 97.5 101 20 134/84 94 Room Air Status: improved Disposition: ADMITTED INPATIENT Condition: Serious Referrals: [facility],REFERRING (PCP) Abilio Hough M.D. Mar 29, 2017 15:08
[2017-03-29] MEDS ORDERED: Albuterol/Ipratropium 3ml neb HHN PRN (15:15)
[2017-03-29] MEDS ORDERED: Mylanta II UD 30ml ORAL PRN (15:15)
[2017-03-29] MEDS ORDERED: Miralax 17gm pkt ORAL PRN (15:15)
[2017-03-29] MEDS ORDERED: Nitroglycerin Subl 0.4mg tab SL PRN (15:15)
--- NOTE | 2017-03-29 19:10 | Cardiology Progress Note ---
Assessment/Plan Assessment/Plan cp reported syncope hyperdynamic systolic function nause adn vomitting refer to my note last admissison she hasd had extensive [place] includina good qulaity ctca reproted norml resume bp meds orthostatic vitals pt request pain med for her right arm pain whcih she say hit the wall [id number] Objective Last 24 Hour Vital Signs Date Time Temp Pulse Resp B/P (MAP) Pulse Ox O2 Delivery O2 Flow Rate FiO2 03/29/17 16:56 82 03/29/17 16:39 96.4 98 20 185/129 97 Room Air 03/29/17 15:54 97.9 77 16 169/106 98 Room Air 03/29/17 15:30 77 16 169/106 98 Room Air 03/29/17 15:15 97.9 03/29/17 15:00 80 16 157/123 100 Room Air 03/29/17 14:44 190/114 03/29/17 14:00 79 16 190/114 99 Room Air 03/29/17 13:30 80 16 176/118 98 Room Air 03/29/17 12:45 97.9 03/29/17 12:45 97.9 03/29/17 12:00 80 16 204/126 99 Room Air 03/29/17 11:30 84 16 Room Air 03/29/17 11:07 97.9 84 16 195/121 100 Room Air Intake and Output 03/29/17 03/30/17 19:00 07:00 Intake Total 240 ml Balance 240 ml Intake Oral 240 ml # Voids 1 # Bowel Movements 2 Laboratory Tests Test 03/29/17 11:55 03/29/17 13:12 Urine Color Pale yellow Urine Appearance Clear Urine pH 7 (4.5-8.0) Urine Specific [place] 1.010 (1.005-1.035) Urine Protein Negative (NEGATIVE) Urine Glucose (UA) Negative (NEGATIVE) Urine Ketones Negative (NEGATIVE) Urine Occult Blood Negative (NEGATIVE) Urine Nitrite Negative (NEGATIVE) Urine Bilirubin Negative (NEGATIVE) Urine Urobilinogen Normal MG/DL (0.0-1.0) Urine Leukocyte Esterase 1+ (NEGATIVE) H Urine RBC 0-2 /HPF (0 - 2) Urine WBC 2-4 /HPF (0 - 2) Urine Squamous Epithelial Cells Few /LPF (NONE/OCC) Urine Bacteria Few /HPF (NONE) Urine Opiates Screen Negative (NEGATIVE) Urine Barbiturates Screen Negative (NEGATIVE) Phencyclidine (PCP) Screen Negative (NEGATIVE) Urine Amphetamines Screen Negative (NEGATIVE) Urine Benzodiazepines Screen Negative (NEGATIVE) Urine Cocaine Screen Negative (NEGATIVE) Urine Marijuana (THC) Screen Negative (NEGATIVE) White Blood Count 4.9 K/UL (4.8-10.8) Red Blood Count 4.97 M/UL (4.20-5.40) Hemoglobin 13.5 G/DL (12.0-16.0) Hematocrit 42.8 % (37.0-47.0) Mean Corpuscular Volume 86 FL (80-99) Mean Corpuscular Hemoglobin 27.2 PG (27.0-31.0) Mean Corpuscular Hemoglobin Concent 31.7 G/DL (32.0-36.0) L Red Cell Distribution Width 16.0 % (11.6-14.8) H Platelet Count 267 K/UL (150-450) Mean Platelet Volume 7.3 FL (6.5-10.1) Neutrophils (%) (Auto) 66.3 % (45.0-75.0) Lymphocytes (%) (Auto) 23.5 % (20.0-45.0) Monocytes (%) (Auto) 5.8 % (1.0-10.0) Eosinophils (%) (Auto) 3.4 % (0.0-3.0) H Basophils (%) (Auto) 0.9 % (0.0-2.0) Erythrocyte Sedimentation Rate 16 MM/HR (0-20) Prothrombin Time 9.3 SEC (9.30-11.50) Prothromb Time International Ratio 0.9 (0.9-1.1) Activated Partial Thromboplast Time 22 SEC (23-33) L Sodium Level 140 mEQ/L (135-145) Potassium Level 4.8 mEQ/L (3.4-4.9) Chloride Level 101 mEQ/L (98-107) Carbon Dioxide Level 26 mEQ/L (20-30) Anion Gap 13 (5-15) Blood Urea Nitrogen 11 mg/dL (7-23) Creatinine 0.9 mg/dL (0.5-0.9) Estimat Glomerular Filtration Rate > 60 mL/min (>60) Glucose Level 101 mg/dL (74-106) Calcium Level 10.1 mg/dL (8.6-10.2) Total Bilirubin 0.3 mg/dL (0.0-1.2) Aspartate Amino Transf (AST/SGOT) 15 U/L (5-40) Alanine Aminotransferase (ALT/SGPT) 17 U/L (3-33) Alkaline Phosphatase 66 U/L (35-104) Total Creatine Kinase 85 U/L (26-140) Troponin I < 0.30 ng/mL (<=0.30) Pro-B-Type Natriuretic Peptide 67 pg/mL (0-125) Total Protein 7.4 g/dL (6.6-8.7) Albumin 4.5 g/dL (3.5-5.2) Globulin 2.9 g/dL Albumin/Globulin Ratio 1.5 (1.0-2.7) Thyroid Stimulating Hormone (TSH) 1.020 uIU/mL (0.300-4.500) BRINA CHAVIRA Mar 29, 2017 19:10
[2017-03-29] MEDS: LORazepam Inj 2mg/ml 1ml IV PRN (20:47)
[2017-03-29] MEDS: Morphine Sulfate 2mg/ml Inj IVP PRN (20:50)
[2017-03-29] MEDS: Heparin 5000 units/ml inj SUBQ SCH (20:52)
[2017-03-30] VITALS: BP_SYST 134; BP_SYST 143; BP_DIAS 83; BP_DIAS 84
[2017-03-30] MEDS: DiphenhydrAMINE 50mg/ml Inj IVP PRN ×4 (01:00→20:57)
[2017-03-30] MEDS: LORazepam Inj 2mg/ml 1ml IV PRN ×5 (01:00→22:55)
[2017-03-30] MEDS: Morphine Sulfate 2mg/ml Inj IVP PRN ×5 (01:00→20:58)
[2017-03-30 08:00] VITALS: BP 146/96
[2017-03-30 08:18] LABS: BASOPHILS % (AUTO) 1.7 % (0.0-2.0); EOSINOPHILS % (AUTO) 4.2 % (0.0-3.0); LYMPHOCYTES % (AUTO) 40.9 % (20.0-45.0); MEAN CORPUSCULAR HGB CONC 32.5 G/DL (32.0-36.0); MEAN CORPUSCULAR VOLUME 86 FL (80-99); MEAN PLATELET VOLUME 8.3 FL (6.5-10.1); MONOCYTES % (AUTO) 7.6 % (1.0-10.0); NEUTROPHILS % (AUTO) 45.6 % (45.0-75.0); PLATELET COUNT 266 K/UL (150-450); RED BLOOD COUNT 4.42 M/UL (4.20-5.40); RED CELL DISTRIBUTION WIDTH 16.2 % (11.6-14.8); WHITE BLOOD COUNT 4.4 K/UL (4.8-10.8)
[2017-03-30 08:24] LABS: INR 0.9 (0.9-1.1); PROTHROMBIN TIME 9.5 SEC (9.30-11.50)
[2017-03-30] MEDS: Heparin 5000 units/ml inj SUBQ SCH ×2 (08:25→21:00)
--- NOTE | 2017-03-30 08:31 | Consultation ---
DATE OF CONSULTATION: 03/29/2017 CARDIOLOGY CONSULTATION CONSULTING PHYSICIAN: Danny Villarreal M.D. REFERRING PHYSICIAN: Zaida Fraser M.D. REASON FOR REFERRAL: Chest pain. History Of Present Illness: This is a 51-year-old female, who presented to the hospital with a chief complaint of chest pain while taking out the garbage, severe sharp sensation in the chest. She was having fluttering at this time and she says she passed out a little bit and she said she was brought to the emergency room here at [facility] and has been admitted because of the symptoms. She still has the pain although not severe as it was earlier this morning when it started. She did not find any relieving or exacerbating factors for the pain. Of note, the pain is on twisting, turning, bending, standing, eating, and swallowing. She did have the palpitations as well. She states she has had episodes of passing out on prior occasions and she does have dizziness when she stands up. She has shortness of breath with activity. She has shortness of breath that wakes her up at night. She has shortness of breath if she lays down. She uses 5 to 6 pillows. Past Medical History: Positive for high blood pressure. No history of heart attack. No cancer. She has had a history of stroke that she states [place]. No hepatitis or tuberculosis. She does have history of asthma and emphysema. No history of ulcers. No kidney problems. No liver problems, thyroid problems, anemia, or arthritis. No HIV, AIDS, or blood clots anywhere. This patient was admitted here at [facility]. Last time she was of having an aneurysm. Care from [facility] was reviewed. The patient apparently was hospitalized at [facility] in January 2017 with hypertensive urgency, medication seeking behavior, and [facility] discharge summary previously indicates that the patient had an extensive evaluation and coronary CTA, ruled out coronary disease and significant amount of testing was performed and no aneurysms were noted during that hospitalization. Allergies: She is allergic to multiple medications including Compazine, contrast dye, , Ketoralac, Reglan, Zofran, penicillin, and tramadol. She can take a Phenergan. Social History: She smokes one cigarette a day and social drinking alcoholic beverages. She denies any drugs. Review Of Systems: Gastrointestinal: She has had nausea and vomiting. she has done that on prior occasions. Genitourinary: Negative. Pulmonary: Positive coughing and wheezing. Constitutional: No fevers, chills, or night sweats. Neurologic: Negative. PHYSICAL EXAMINATION: General: Shows to be middle-aged female, in no apparent respiratory distress. Neck: Supple. No jugular venous distention. No abdominojugular reflux noted. LUNGS: Clear to auscultation and percussion. Cardiac: S1 is normal. S2 is normal. Regular rate and rhythm. Holosystolic regurgitant murmur is noted as well as systolic ejection. ABDOMEN: Soft. Nontender. Positive bowel sounds. EXTREMITIES: There is no clubbing, cyanosis, nor is there any edema. Neurologic: She is awake, alert, responsive, and in no apparent respiratory distress. 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 A chest x-ray was performed today shows no acute findings and her electrocardiogram showed normal sinus rhythm, normal QRS, leftward axis. No ST-T wave abnormalities of any significant degree. Blood tests, white count of 4.9, hemoglobin 13.5, and platelet count of 267,000. Sodium is 140, potassium 4.8, chloride 101, bicarb 26, BUN of 11, creatinine 0.9, glucose of 101, and calcium is 10.1. Liver function tests are normal. TSH is 1.01. B12 level was 325. Last time, she was admitted here to the hospital and triglycerides of 554 with total cholesterol 256 with a LDL of 107 and HDL of 38. ASSESSMENT AND PLAN: 1. Reported syncope. 2. History of chest pain with negative CT coronary angiogram. 3. Pain. 4. Hypertension. 5. Hyperdynamic left ventricle. Dr. Fraser, this patient was seen in cardiac consultation. The patient indicates that she is having a lot of retching and her data so far is fairly unremarkable. Electrocardiogram is negative. Troponin is negative. The fact that she has had good quality CT coronary angiogram at [facility] rules out the possibility of coronary disease of this patient because of chest pain. She has had some chest pain on prior occasions as well. It is possible that she had vasovagal syncope and/or volume depletion secondary to with related to cavity obliteration have caused her syncope. However, it is hard for me to believe that she had a blood pressure that was low since the blood pressure at the time of ER admission, it was 195/121 and I am not sure she truly did have syncope. She herself indicates she was "passed out for a fraction of seconds." Nevertheless, blood pressure remains elevated. She should be back on her usual blood pressure medication that she was receiving previously. Orthostatic vitals will be administered, will be checked. A set of cardiac enzymes will be checked and further recommendations depending on the results of the above. She does complain of pain in her right arm and she wants some pain medications for that. She also wants some Phenergan for her nausea and vomiting. Danny Villarreal M.D. DR: FAZAL JOB#: [id number] CC:
[2017-03-30 08:34] VITALS: BP 146/96
[2017-03-30 08:49] LABS: TROPONIN I < 0.30 ng/mL (<=0.30)
--- NOTE | 2017-03-30 09:25 | History and Physical ---
History of Present Illness General Date patient seen: Mar 29, 2017 Reason for Hospitalization: Chest Pain Present Illness HPI 51 year old female with hx of HTN, drug seeking behavior presents after passing out and falling and hitting her R chest. She also complains of L sided chest pressure. She has had cardiac cath in the past. She has been nauseated and started vomiting. She had previously extensive work up which all were negative. She was found to have uncontrolled HTN and admitted to [facility] for workup of syncope. Allergies: Coded Allergies: METHYLPHENIDATE (Verified Allergy, Unknown, 03/14/17) METOCLOPRAMIDE (Verified Allergy, Unknown, 03/14/17) ONDANSETRON (Verified Allergy, Unknown, 03/14/17) TRAMADOL (Verified Allergy, Unknown, 03/14/17) CHLORPROMAZINE (Verified Adverse Reaction, Intermediate, Shortness of Breath, 06/03/14) KETOROLAC (Verified Adverse Reaction, Intermediate, 06/03/14) PENICILLINS (Verified Adverse Reaction, Intermediate, 06/03/14) IBUPROFEN (Unverified Adverse Reaction, Unknown, 06/03/14) Uncoded Allergies: CONTRAST DYE (Allergy, Unknown, 03/14/17) Medication History Scheduled Albuterol Sulfate* (Albuterol Sulfate Hhn*), 3 ML INH TID, (Reported) Amlodipine Besylate (Norvasc), Unknown Dose ORAL DAILY, (Reported) Aspirin* (Aspir 81*), 81 MG ORAL DAILY, (Reported) Benazepril Hcl* (Benazepril Hcl*), 20 MG ORAL DAILY, (Reported) Benazepril Hcl* (Lotensin*), 20 MG ORAL DAILY, (Reported) Clonidine Hcl* (Catapres*), 0.1 MG ORAL QHS, (Reported) [id number]-[id number]-[id number]* ([id number]-4*), 1 PATCH TDERMAL ONCE A WEEK, (Reported) Lorazepam* (Ativan*), 1 MG ORAL BEDTIME, (Reported) Patient History Healthcare decision maker N Resuscitation status Full Code Advanced Directive on File Past Medical/Surgical History Past Medical/Surgical History: (1) HTN (hypertension) (2) History of cardiac cath Review of Systems All Other Systems: negative except mentioned in HPI Physical Exam General Appearance: WD/WN Lines, tubes and drains: peripheral HEENT: normocephalic, atraumatic Neck: non-tender, normal alignment Respiratory/Chest: chest wall non-tender, lungs clear Last 24 Hour Vital Signs Date Time Temp Pulse Resp B/P (MAP) Pulse Ox O2 Delivery O2 Flow Rate FiO2 03/30/17 08:36 92 146/96 03/30/17 08:34 96.4 92 19 146/96 99 Room Air 03/30/17 08:00 96.4 92 23 146/96 99 Room Air 03/30/17 04:00 97 03/30/17 00:00 97.7 79 20 143/83 93 Room Air 03/30/17 00:00 97.5 101 20 134/84 94 Room Air 03/30/17 00:00 97 03/29/17 22:00 153/81 03/29/17 20:53 153/81 03/29/17 20:52 98 153/81 03/29/17 20:00 97.9 98 18 153/83 95 Room Air 03/29/17 16:56 82 03/29/17 16:39 96.4 98 20 185/129 97 Room Air 03/29/17 15:54 97.9 77 16 169/106 98 Room Air 03/29/17 15:30 77 16 169/106 98 Room Air 03/29/17 15:15 97.9 03/29/17 15:00 80 16 157/123 100 Room Air 03/29/17 14:44 190/114 03/29/17 14:00 79 16 190/114 99 Room Air 03/29/17 13:30 80 16 176/118 98 Room Air 03/29/17 12:45 97.9 03/29/17 12:45 97.9 03/29/17 12:00 80 16 204/126 99 Room Air 03/29/17 11:30 84 16 Room Air 03/29/17 11:07 97.9 84 16 195/121 100 Room Air Intake and Output 03/30/17 03/31/17 19:00 07:00 Intake Total 100 ml Balance 100 ml Intake Oral 100 ml Laboratory Tests Test 03/29/17 11:55 03/29/17 13:12 03/30/17 07:50 Urine Color Pale yellow Urine Appearance Clear Urine pH 7 (4.5-8.0) Urine Specific [place] 1.010 (1.005-1.035) Urine Protein Negative (NEGATIVE) Urine Glucose (UA) Negative (NEGATIVE) Urine Ketones Negative (NEGATIVE) Urine Occult Blood Negative (NEGATIVE) Urine Nitrite Negative (NEGATIVE) Urine Bilirubin Negative (NEGATIVE) Urine Urobilinogen Normal MG/DL (0.0-1.0) Urine Leukocyte Esterase 1+ (NEGATIVE) H Urine RBC 0-2 /HPF (0 - 2) Urine WBC 2-4 /HPF (0 - 2) Urine Squamous Epithelial Cells Few /LPF (NONE/OCC) Urine Bacteria Few /HPF (NONE) Urine Opiates Screen Negative (NEGATIVE) Urine Barbiturates Screen Negative (NEGATIVE) Phencyclidine (PCP) Screen Negative (NEGATIVE) Urine Amphetamines Screen Negative (NEGATIVE) Urine Benzodiazepines Screen Negative (NEGATIVE) Urine Cocaine Screen Negative (NEGATIVE) Urine Marijuana (THC) Screen Negative (NEGATIVE) White Blood Count 4.9 K/UL (4.8-10.8) 4.4 K/UL (4.8-10.8) L Red Blood Count 4.97 M/UL (4.20-5.40) 4.42 M/UL (4.20-5.40) Hemoglobin 13.5 G/DL (12.0-16.0) 12.4 G/DL (12.0-16.0) Hematocrit 42.8 % (37.0-47.0) 38.1 % (37.0-47.0) Mean Corpuscular Volume 86 FL (80-99) 86 FL (80-99) Mean Corpuscular Hemoglobin 27.2 PG (27.0-31.0) 28.0 PG (27.0-31.0) Mean Corpuscular Hemoglobin Concent 31.7 G/DL (32.0-36.0) L 32.5 G/DL (32.0-36.0) Red Cell Distribution Width 16.0 % (11.6-14.8) H 16.2 % (11.6-14.8) H Platelet Count 267 K/UL (150-450) 266 K/UL (150-450) Mean Platelet Volume 7.3 FL (6.5-10.1) 8.3 FL (6.5-10.1) Neutrophils (%) (Auto) 66.3 % (45.0-75.0) 45.6 % (45.0-75.0) Lymphocytes (%) (Auto) 23.5 % (20.0-45.0) 40.9 % (20.0-45.0) Monocytes (%) (Auto) 5.8 % (1.0-10.0) 7.6 % (1.0-10.0) Eosinophils (%) (Auto) 3.4 % (0.0-3.0) H 4.2 % (0.0-3.0) H Basophils (%) (Auto) 0.9 % (0.0-2.0) 1.7 % (0.0-2.0) Erythrocyte Sedimentation Rate 16 MM/HR (0-20) Prothrombin Time 9.3 SEC (9.30-11.50) 9.5 SEC (9.30-11.50) Prothromb Time International Ratio 0.9 (0.9-1.1) 0.9 (0.9-1.1) Activated Partial Thromboplast Time 22 SEC (23-33) L 24 SEC (23-33) Sodium Level 140 mEQ/L (135-145) Pending Potassium Level 4.8 mEQ/L (3.4-4.9) Pending Chloride Level 101 mEQ/L (98-107) Pending Carbon Dioxide Level 26 mEQ/L (20-30) Pending Anion Gap 13 (5-15) Blood Urea Nitrogen 11 mg/dL (7-23) Pending Creatinine 0.9 mg/dL (0.5-0.9) Pending Estimat Glomerular Filtration Rate > 60 mL/min (>60) Pending Glucose Level 101 mg/dL (74-106) Pending Calcium Level 10.1 mg/dL (8.6-10.2) Pending Total Bilirubin 0.3 mg/dL (0.0-1.2) Pending Aspartate Amino Transf (AST/SGOT) 15 U/L (5-40) Pending Alanine Aminotransferase (ALT/SGPT) 17 U/L (3-33) Pending Alkaline Phosphatase 66 U/L (35-104) Pending Total Creatine Kinase 85 U/L (26-140) Troponin I < 0.30 ng/mL (<=0.30) < 0.30 ng/mL (<=0.30) Pro-B-Type Natriuretic Peptide 67 pg/mL (0-125) Total Protein 7.4 g/dL (6.6-8.7) Pending Albumin 4.5 g/dL (3.5-5.2) Pending Globulin 2.9 g/dL Pending Albumin/Globulin Ratio 1.5 (1.0-2.7) Thyroid Stimulating Hormone (TSH) 1.020 uIU/mL (0.300-4.500) Triglycerides Level Pending Cholesterol Level Pending LDL Cholesterol Pending HDL Cholesterol Pending Cholesterol/HDL Ratio Pending Height (Feet): 5 Height (Inches): 6.00 Weight (Pounds): 175 Medications Current Medications Medications (Trade) Dose Ordered Sig/Rylee Route PRN Reason Start Time Stop Time Status Last Admin Dose Admin Acetaminophen (Tylenol) 650 mg Q4H PRN ORAL fever 03/29/17 15:15 04/28/17 15:14 Al Hydroxide/Mg Hydroxide (Mylanta II) 30 ml Q6H PRN ORAL dyspepsia 03/29/17 15:15 04/28/17 15:14 Albuterol/ Ipratropium (DuoNeb 0.5-3(2.5)mg/3ml) 3 ml Q4H PRN HHN Shortness of Breath 03/29/17 15:15 04/03/17 15:14 Amlodipine Besylate (Norvasc) 10 mg DAILY ORAL 03/29/17 21:00 04/28/17 20:59 03/30/17 08:36 Clonidine HCl (Catapres TTS-1) 1 patch ONCE A WEEK TDERMAL 03/29/17 22:00 04/28/17 21:59 03/29/17 22:00 Clonidine HCl (Catapres) 0.1 mg Q4H PRN ORAL SBP > 160 03/29/17 15:15 04/28/17 15:14 Clonidine HCl (Catapres) 0.1 mg QHS ORAL 03/29/17 21:00 04/28/17 20:59 03/29/17 20:53 Dextrose (Dextrose 50%) STAT PRN IV Hypoglycemia 03/29/17 15:15 04/28/17 15:14 Diphenhydramine HCl (Benadryl) 25 mg Q6H PRN IVP Itching 03/29/17 21:30 04/28/17 21:29 03/30/17 08:23 Heparin Sodium (Porcine) (Heparin 5000 units/ml) 5,000 units EVERY 12 HOURS SUBQ 03/29/17 21:00 04/28/17 20:59 03/30/17 08:25 Lorazepam (Ativan 2mg/ml 1ml) 0.5 mg Q4H PRN IV For Anxiety 03/29/17 15:15 04/05/17 15:14 03/30/17 08:23 Morphine Sulfate (Morphine Sulfate) 1 mg Q4H PRN IVP For Pain 7-10 03/29/17 15:15 04/05/17 15:14 03/30/17 08:22 Nitroglycerin (Ntg) 0.4 mg Q5M X 3 DOSES PRN SL Prn Chest Pain 03/29/17 15:15 04/28/17 15:14 Polyethylene Glycol (Miralax) 17 gm HSPRN PRN ORAL Constipation 03/29/17 15:15 04/28/17 15:14 Promethazine HCl (Phenergan) 25 mg Q8H PRN IV Nausea & Vomiting 03/29/17 21:30 04/28/17 21:29 03/30/17 08:23 Temazepam (Restoril) 15 mg HSPRN PRN ORAL Insomnia 03/29/17 15:15 04/05/17 15:14 Assessment/Plan Problem List: (1) Syncope ICD Codes: R55 - Syncope and collapse SNOMED: [id number] Qualifiers: Qualified Codes: R55 - Syncope and collapse (2) Hypertensive urgency ICD Codes: I16.0 - Hypertensive urgency SNOMED: 689666727 (3) HTN (hypertension) ICD Codes: I10 - Essential (primary) hypertension SNOMED: 12362777 (4) Persistent vomiting ICD Codes: R11.10 - Vomiting, unspecified SNOMED: 149413630 Assessment/Plan cardio and neuro evaluation symptomatic treatment. JANET KEMP Mar 30, 2017 09:25
--- NOTE | 2017-03-30 09:37 | Pulmonology Progress Note ---
Assessment/Plan Problems: (1) Syncope (2) Hypertensive urgency (3) HTN (hypertension) (4) Persistent vomiting Assessment/Plan pb is better GI evaluation pending f/u cardio recommendations. Subjective ROS Limited/Unobtainable: No Interval Events: wants more pain meds Allergies: Coded Allergies: METHYLPHENIDATE (Verified Allergy, Unknown, 03/14/17) METOCLOPRAMIDE (Verified Allergy, Unknown, 03/14/17) ONDANSETRON (Verified Allergy, Unknown, 03/14/17) TRAMADOL (Verified Allergy, Unknown, 03/14/17) CHLORPROMAZINE (Verified Adverse Reaction, Intermediate, Shortness of Breath, 06/03/14) KETOROLAC (Verified Adverse Reaction, Intermediate, 06/03/14) PENICILLINS (Verified Adverse Reaction, Intermediate, 06/03/14) IBUPROFEN (Unverified Adverse Reaction, Unknown, 06/03/14) Uncoded Allergies: CONTRAST DYE (Allergy, Unknown, 03/14/17) Objective Last 24 Hour Vital Signs Date Time Temp Pulse Resp B/P (MAP) Pulse Ox O2 Delivery O2 Flow Rate FiO2 03/30/17 08:36 92 146/96 03/30/17 08:34 96.4 92 19 146/96 99 Room Air 03/30/17 08:00 96.4 92 23 146/96 99 Room Air 03/30/17 04:00 97 03/30/17 00:00 97.7 79 20 143/83 93 Room Air 03/30/17 00:00 97.5 101 20 134/84 94 Room Air 03/30/17 00:00 97 03/29/17 22:00 153/81 03/29/17 20:53 153/81 03/29/17 20:52 98 153/81 03/29/17 20:00 97.9 98 18 153/83 95 Room Air 03/29/17 16:56 82 03/29/17 16:39 96.4 98 20 185/129 97 Room Air 03/29/17 15:54 97.9 77 16 169/106 98 Room Air 03/29/17 15:30 77 16 169/106 98 Room Air 03/29/17 15:15 97.9 03/29/17 15:00 80 16 157/123 100 Room Air 03/29/17 14:44 190/114 03/29/17 14:00 79 16 190/114 99 Room Air 03/29/17 13:30 80 16 176/118 98 Room Air 03/29/17 12:45 97.9 03/29/17 12:45 97.9 03/29/17 12:00 80 16 204/126 99 Room Air 03/29/17 11:30 84 16 Room Air 03/29/17 11:07 97.9 84 16 195/121 100 Room Air Intake and Output 03/30/17 03/31/17 19:00 07:00 Intake Total 100 ml Balance 100 ml Intake Oral 100 ml General Appearance: WD/WN HEENT: normocephalic, atraumatic Respiratory/Chest: chest wall non-tender, normal breath sounds Cardiovascular: normal peripheral pulses, normal rate Abdomen: normal bowel sounds, soft, non tender Genitourinary: normal external genitalia Skin: no rash 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, no motor/sensory deficits Lymphatic: no neck adenopathy Laboratory Tests 03/29/17 11:55: Urine Color Pale yellow, Urine Appearance Clear, Urine pH 7, Urine Specific [place] 1.010, Urine Protein Negative, Urine Glucose (UA) Negative, Urine Ketones Negative, Urine Occult Blood Negative, Urine Nitrite Negative, Urine Bilirubin Negative, Urine Urobilinogen Normal, Urine Leukocyte Esterase 1+H, Urine RBC 0-2, Urine WBC 2-4, Urine Squamous Epithelial Cells Few, Urine Bacteria Few, Urine Opiates Screen Negative, Urine Barbiturates Screen Negative , Phencyclidine (PCP) Screen Negative, Urine Amphetamines Screen Negative, Urine Benzodiazepines Screen Negative, Urine Cocaine Screen Negative, Urine Marijuana (THC) Screen Negative 03/29/17 13:12: White Blood Count 4.9, Red Blood Count 4.97, Hemoglobin 13.5, Hematocrit 42.8, Mean Corpuscular Volume 86, Mean Corpuscular Hemoglobin 27.2, Mean Corpuscular Hemoglobin Concent 31.7L, Red Cell Distribution Width 16.0H, Platelet Count 267 , Mean Platelet Volume 7.3, Neutrophils (%) (Auto) 66.3, Lymphocytes (%) (Auto) 23.5, Monocytes (%) (Auto) 5.8, Eosinophils (%) (Auto) 3.4H, Basophils (%) (Auto ) 0.9, Erythrocyte Sedimentation Rate 16, Prothrombin Time 9.3, Prothromb Time International Ratio 0.9, Activated Partial Thromboplast Time 22L, Sodium Level 140, Potassium Level 4.8, Chloride Level 101, Carbon Dioxide Level 26, Anion Gap 13, Blood Urea Nitrogen 11, Creatinine 0.9, Estimat Glomerular Filtration Rate > 60, Glucose Level 101, Calcium Level 10.1, Total Bilirubin 0.3, Aspartate Amino Transf (AST/SGOT) 15, Alanine Aminotransferase (ALT/SGPT) 17, Alkaline Phosphatase 66, Total Creatine Kinase 85, Troponin I < 0.30, Pro-B- Type Natriuretic Peptide 67, Total Protein 7.4, Albumin 4.5, Globulin 2.9, Albumin/Globulin Ratio 1.5, Thyroid Stimulating Hormone (TSH) 1.020 03/30/17 07:50: White Blood Count 4.4L, Red Blood Count 4.42, Hemoglobin 12.4, Hematocrit 38.1, Mean Corpuscular Volume 86, Mean Corpuscular Hemoglobin 28.0, Mean Corpuscular Hemoglobin Concent 32.5, Red Cell Distribution Width 16.2H, Platelet Count 266, Mean Platelet Volume 8.3, Neutrophils (%) (Auto) 45.6, Lymphocytes (%) (Auto) 40.9, Monocytes (%) (Auto) 7.6, Eosinophils (%) (Auto) 4.2H, Basophils (%) (Auto ) 1.7, Prothrombin Time 9.5, Prothromb Time International Ratio 0.9, Activated Partial Thromboplast Time 24, Sodium Level [Pending], Potassium Level [Pending] , Chloride Level [Pending], Carbon Dioxide Level [Pending], Blood Urea Nitrogen [Pending], Creatinine [Pending], Estimat Glomerular Filtration Rate [Pending], Glucose Level [Pending], Calcium Level [Pending], Total Bilirubin [Pending], Aspartate Amino Transf (AST/SGOT) [Pending], Alanine Aminotransferase (ALT/SGPT ) [Pending], Alkaline Phosphatase [Pending], Troponin I < 0.30, Total Protein [ Pending], Albumin [Pending], Globulin [Pending], Triglycerides Level [Pending], Cholesterol Level [Pending], LDL Cholesterol [Pending], HDL Cholesterol [Pending ], Cholesterol/HDL Ratio [Pending] Current Medications Medications (Trade) Dose Ordered Sig/Rylee Route PRN Reason Start Time Stop Time Status Last Admin Dose Admin Acetaminophen (Tylenol) 650 mg Q4H PRN ORAL fever 03/29/17 15:15 04/28/17 15:14 Al Hydroxide/Mg Hydroxide (Mylanta II) 30 ml Q6H PRN ORAL dyspepsia 03/29/17 15:15 04/28/17 15:14 Albuterol/ Ipratropium (DuoNeb 0.5-3(2.5)mg/3ml) 3 ml Q4H PRN HHN Shortness of Breath 03/29/17 15:15 04/03/17 15:14 Amlodipine Besylate (Norvasc) 10 mg DAILY ORAL 03/29/17 21:00 04/28/17 20:59 03/30/17 08:36 Clonidine HCl (Catapres TTS-1) 1 patch ONCE A WEEK TDERMAL 03/29/17 22:00 04/28/17 21:59 03/29/17 22:00 Clonidine HCl (Catapres) 0.1 mg Q4H PRN ORAL SBP > 160 03/29/17 15:15 04/28/17 15:14 Clonidine HCl (Catapres) 0.1 mg QHS ORAL 03/29/17 21:00 04/28/17 20:59 03/29/17 20:53 Dextrose (Dextrose 50%) STAT PRN IV Hypoglycemia 03/29/17 15:15 04/28/17 15:14 Diphenhydramine HCl (Benadryl) 25 mg Q6H PRN IVP Itching 03/29/17 21:30 04/28/17 21:29 03/30/17 08:23 Heparin Sodium (Porcine) (Heparin 5000 units/ml) 5,000 units EVERY 12 HOURS SUBQ 03/29/17 21:00 04/28/17 20:59 03/30/17 08:25 Lorazepam (Ativan 2mg/ml 1ml) 0.5 mg Q4H PRN IV For Anxiety 03/29/17 15:15 04/05/17 15:14 03/30/17 08:23 Morphine Sulfate (Morphine Sulfate) 2 mg Q4H PRN IVP For Pain 7-10 03/30/17 11:15 04/06/17 11:14 Nitroglycerin (Ntg) 0.4 mg Q5M X 3 DOSES PRN SL Prn Chest Pain 03/29/17 15:15 04/28/17 15:14 Polyethylene Glycol (Miralax) 17 gm HSPRN PRN ORAL Constipation 03/29/17 15:15 04/28/17 15:14 Promethazine HCl (Phenergan) 25 mg Q8H PRN IV Nausea & Vomiting 03/29/17 21:30 04/28/17 21:29 03/30/17 08:23 Temazepam (Restoril) 15 mg HSPRN PRN ORAL Insomnia 03/29/17 15:15 04/05/17 15:14 JANET KEMP Mar 30, 2017 09:37
[2017-03-30 10:44] LABS: ALANINE AMINOTRANSFERASE 14 U/L (3-33); ALBUMIN/GLOBULIN RATIO 1.3 (1.0-2.7); ASPARTATE AMINO TRANSFERASE 15 U/L (5-40); CARBON DIOXIDE 22 mEQ/L (20-30); CHOLESTEROL 280 mg/dL (< 200); CHOLESTEROL/HDL RATIO 8.2 (3.3-4.4); CREATININE 1.1 mg/dL (0.5-0.9); GLOMERULAR FILTRATION RATE > 60 mL/min (>60); HEMOLYSIS 1; LDL CHOLESTEROL CALC 166 mg/dL (60-99); TOTAL PROTEIN 6.9 g/dL (6.6-8.7)
--- NOTE | 2017-03-30 10:50 | General Progress Note ---
Progress Note Progress Note Chart reviewed, Pt examined, consult dictated. Impression: blunt trauma to rt chest, rt arm with resulting contusion, no evidence of compartment syndrome. Plan: observation, analgesics, no need for surgical intervention. Catracho Willard MD Mar 30, 2017 10:50
[2017-03-30 11:00] LABS: ANION GAP 17 (5-15); CHLORIDE 103 mEQ/L (98-107); POTASSIUM 3.9 mEQ/L (3.4-4.9); SODIUM 142 mEQ/L (135-145)
[2017-03-30 12:00] VITALS: BP 151/93
--- NOTE | 2017-03-30 14:09 | Neurology Progress Note ---
Interim History Interim History ROS Limited/Unobtainable: No Objective Physical Exam Last Vital Signs Date Time Temp Pulse Resp B/P (MAP) Pulse Ox O2 Delivery O2 Flow Rate FiO2 03/30/17 12:00 96.9 84 22 151/93 97 Room Air Laboratory Tests Test 03/30/17 07:50 White Blood Count 4.4 K/UL (4.8-10.8) L Red Blood Count 4.42 M/UL (4.20-5.40) Hemoglobin 12.4 G/DL (12.0-16.0) Hematocrit 38.1 % (37.0-47.0) Mean Corpuscular Volume 86 FL (80-99) Mean Corpuscular Hemoglobin 28.0 PG (27.0-31.0) Mean Corpuscular Hemoglobin Concent 32.5 G/DL (32.0-36.0) Red Cell Distribution Width 16.2 % (11.6-14.8) H Platelet Count 266 K/UL (150-450) Mean Platelet Volume 8.3 FL (6.5-10.1) Neutrophils (%) (Auto) 45.6 % (45.0-75.0) Lymphocytes (%) (Auto) 40.9 % (20.0-45.0) Monocytes (%) (Auto) 7.6 % (1.0-10.0) Eosinophils (%) (Auto) 4.2 % (0.0-3.0) H Basophils (%) (Auto) 1.7 % (0.0-2.0) Prothrombin Time 9.5 SEC (9.30-11.50) Prothromb Time International Ratio 0.9 (0.9-1.1) Activated Partial Thromboplast Time 24 SEC (23-33) Sodium Level 142 mEQ/L (135-145) Potassium Level 3.9 mEQ/L (3.4-4.9) Chloride Level 103 mEQ/L (98-107) Carbon Dioxide Level 22 mEQ/L (20-30) Anion Gap 17 (5-15) H Blood Urea Nitrogen 16 mg/dL (7-23) Creatinine 1.1 mg/dL (0.5-0.9) H Estimat Glomerular Filtration Rate > 60 mL/min (>60) Glucose Level 113 mg/dL (74-106) H Calcium Level 10.0 mg/dL (8.6-10.2) Total Bilirubin < 0.2 mg/dL (0.0-1.2) Aspartate Amino Transf (AST/SGOT) 15 U/L (5-40) Alanine Aminotransferase (ALT/SGPT) 14 U/L (3-33) Alkaline Phosphatase 61 U/L (35-104) Troponin I < 0.30 ng/mL (<=0.30) Total Protein 6.9 g/dL (6.6-8.7) Albumin 4.0 g/dL (3.5-5.2) Globulin 2.9 g/dL Albumin/Globulin Ratio 1.3 (1.0-2.7) Triglycerides Level 400 mg/dL (< 150) H Cholesterol Level 280 mg/dL (< 200) H LDL Cholesterol 166 mg/dL (60-99) H HDL Cholesterol 34 mg/dL (> 60) Cholesterol/HDL Ratio 8.2 (3.3-4.4) H Impression/Recommendations Problems: (1) Contusion of multiple sites of right shoulder and upper arm (2) Chest wall contusion (3) Hypertensive urgency Recommendations # [id number] YULI NOONAN Mar 30, 2017 14:08
--- NOTE | 2017-03-30 14:22 | Cardiology Progress Note ---
Assessment/Plan Assessment/Plan 1. Reported syncope/ fall 2. History of chest pain with negative CT coronary angiogram. 3. Pain. 4. Hypertension. 5. Hyperdynamic left ventricle. 6. contusion refer to my note last admission at [facility] she has had extensive [place] including good quality ctca reported normal bp is better telel no pauses no svt no vt no sig arrhythmia ekg neg d/w dr kurtz pro bnp was very low i am suspicious of dehydration in the setting if hyperdynamic lv a s a cuse of her near syncope i have instructed her to make sure she drink plenty of fluid adn void dehydration so far no arrhythmia noted on tele orthostatic were not doen as ordered will reorder bp i s better now that meds were given i question if she is truly compliant with her meds !! Objective Last 24 Hour Vital Signs Date Time Temp Pulse Resp B/P (MAP) Pulse Ox O2 Delivery O2 Flow Rate FiO2 03/30/17 12:00 96.9 84 22 151/93 97 Room Air 03/30/17 11:46 84 03/30/17 08:36 92 146/96 03/30/17 08:34 96.4 92 19 146/96 99 Room Air 03/30/17 08:05 Room Air 03/30/17 08:05 86 18 Room Air 03/30/17 08:00 96.4 92 23 146/96 99 Room Air 03/30/17 04:00 97 03/30/17 00:00 97.7 79 20 143/83 93 Room Air 03/30/17 00:00 97.5 101 20 134/84 94 Room Air 03/30/17 00:00 97 03/29/17 22:00 153/81 03/29/17 20:53 153/81 03/29/17 20:52 98 153/81 03/29/17 20:00 97.9 98 18 153/83 95 Room Air 03/29/17 16:56 82 03/29/17 16:39 96.4 98 20 185/129 97 Room Air 03/29/17 15:54 97.9 77 16 169/106 98 Room Air 03/29/17 15:30 77 16 169/106 98 Room Air 03/29/17 15:15 97.9 03/29/17 15:00 80 16 157/123 100 Room Air 03/29/17 14:44 190/114 Intake and Output 03/30/17 03/31/17 19:00 07:00 Intake Total 400 ml Balance 400 ml Intake Oral 400 ml Laboratory Tests Test 03/30/17 07:50 White Blood Count 4.4 K/UL (4.8-10.8) L Red Blood Count 4.42 M/UL (4.20-5.40) Hemoglobin 12.4 G/DL (12.0-16.0) Hematocrit 38.1 % (37.0-47.0) Mean Corpuscular Volume 86 FL (80-99) Mean Corpuscular Hemoglobin 28.0 PG (27.0-31.0) Mean Corpuscular Hemoglobin Concent 32.5 G/DL (32.0-36.0) Red Cell Distribution Width 16.2 % (11.6-14.8) H Platelet Count 266 K/UL (150-450) Mean Platelet Volume 8.3 FL (6.5-10.1) Neutrophils (%) (Auto) 45.6 % (45.0-75.0) Lymphocytes (%) (Auto) 40.9 % (20.0-45.0) Monocytes (%) (Auto) 7.6 % (1.0-10.0) Eosinophils (%) (Auto) 4.2 % (0.0-3.0) H Basophils (%) (Auto) 1.7 % (0.0-2.0) Prothrombin Time 9.5 SEC (9.30-11.50) Prothromb Time International Ratio 0.9 (0.9-1.1) Activated Partial Thromboplast Time 24 SEC (23-33) Sodium Level 142 mEQ/L (135-145) Potassium Level 3.9 mEQ/L (3.4-4.9) Chloride Level 103 mEQ/L (98-107) Carbon Dioxide Level 22 mEQ/L (20-30) Anion Gap 17 (5-15) H Blood Urea Nitrogen 16 mg/dL (7-23) Creatinine 1.1 mg/dL (0.5-0.9) H Estimat Glomerular Filtration Rate > 60 mL/min (>60) Glucose Level 113 mg/dL (74-106) H Calcium Level 10.0 mg/dL (8.6-10.2) Total Bilirubin < 0.2 mg/dL (0.0-1.2) Aspartate Amino Transf (AST/SGOT) 15 U/L (5-40) Alanine Aminotransferase (ALT/SGPT) 14 U/L (3-33) Alkaline Phosphatase 61 U/L (35-104) Troponin I < 0.30 ng/mL (<=0.30) Total Protein 6.9 g/dL (6.6-8.7) Albumin 4.0 g/dL (3.5-5.2) Globulin 2.9 g/dL Albumin/Globulin Ratio 1.3 (1.0-2.7) Triglycerides Level 400 mg/dL (< 150) H Cholesterol Level 280 mg/dL (< 200) H LDL Cholesterol 166 mg/dL (60-99) H HDL Cholesterol 34 mg/dL (> 60) Cholesterol/HDL Ratio 8.2 (3.3-4.4) H BRINA CHAVIRA Mar 30, 2017 14:22
--- NOTE | 2017-03-30 15:37 | GI Initial Consult Note ---
Maryam Tolentino N.P. 03/30/17 1537: History of Present Illness General Date patient seen: Mar 30, 2017 Time patient seen: 14:00 Reason for Hospitalization: Chest Pain Referring physician: JANET CARVAJAL Reason for Consultation: ABDOMINAL PAIN Present Illness HPI Patient presents after passing out and falling and hitting her R chest. She passed out recently and was admitted to the hospital. She does not know why or what the final diagnosis was related to passing out. She has pain where she hit her chest = 9/10, pleuritic and sharp. She also complains of L sided chest pressure. This is related as severe. She has had cardiac cath in the past. She states she has a small aortic aneurism. She took aspirin this morning. After passing out she tried taking nitro without any change in the pain. She has been nauseated and started vomiting. She was not nauseated or vomiting when she passed out. She was discharged after an alleged syncopal seizure 03/16. D/C dx: 1. Reported syncope. 2. Opioid dependence. 3. Intractable nausea and vomiting. 4. Hypertension. 5. Chronic obstructive pulmonary disease. 6. Upper gastrointestinal bleed. She took BP meds in AM. She says her blood pressure has been out of control. Blood pressure meds recently increased, but it is still out of control. Asthma/COPD HTN GI Consult. HPI as noted above. GI consulted for abdominal pain. Pt seen on floor, awake A&Ox4 NAD NPO with no active s/sx of N/V/D. Patient was recently admitted here at [place] 2 weeks ago with persistent vomiting with bloddy emesis. She states today she also had another episode of hemataemesis. In addition, she c/o of difficulty swallowing and being unable to maintain any food down. She presents today stable CBC, Utox unremarkable and hyperlipidemia. The patient has no history of colonoscopy. Home Meds Active Scripts Acetaminophen With Codeine (T#3) (TYLENOL #3 TAB*) Y Tab, 1 TAB ORAL Q6HR Y for 10 Days, TAB Prov:JANET KEMP 03/31/17 Reported Medications Aspirin* (ASPIR 81*) 81 Mg Tablet.dr, 81 MG ORAL DAILY, TAB 03/29/17 Lorazepam* (ATIVAN*) 1 Mg Tablet, 1 MG ORAL BEDTIME, TAB 03/29/17 Albuterol Sulfate* (ALBUTEROL SULFATE HHN*) 2.5 Mg/3 Ml Vial.neb, 3 ML INH TID, EA 03/29/17 Amlodipine Besylate (Norvasc) 2.5 Mg Tablet, ORAL DAILY, TAB 03/14/17 Benazepril Hcl* (LOTENSIN*) 20 Mg Tablet, 20 MG ORAL DAILY, TAB 03/14/17 Hmqmgpdel-Kmp-8* (BWZEQBCG-VDI-6*) 1 Each Patch.tdwk, 1 PATCH TDERMAL ONCE A WEEK, PATCH 03/14/17 Clonidine Hcl* (CATAPRES*) 0.1 Mg Tablet, 0.1 MG ORAL QHS, TAB 06/04/14 Benazepril Hcl* (BENAZEPRIL HCL*) 20 Mg Tablet, 20 MG ORAL DAILY, TAB 06/04/14 Med list reviewed/reconciled: Yes Allergies: Coded Allergies: METHYLPHENIDATE (Verified Allergy, Unknown, 03/14/17) METOCLOPRAMIDE (Verified Allergy, Unknown, 03/14/17) ONDANSETRON (Verified Allergy, Unknown, 03/14/17) TRAMADOL (Verified Allergy, Unknown, 03/14/17) CHLORPROMAZINE (Verified Adverse Reaction, Intermediate, Shortness of Breath, 06/03/14) KETOROLAC (Verified Adverse Reaction, Intermediate, 06/03/14) PENICILLINS (Verified Adverse Reaction, Intermediate, 06/03/14) IBUPROFEN (Unverified Adverse Reaction, Unknown, 06/03/14) Uncoded Allergies: CONTRAST DYE (Allergy, Unknown, 03/14/17) Patient History PMH Narrative Past Medical History: see triage record Social History: Reports: smoking Social History Narrative with sig other at home Last Menstrual Period: 5 years ago Reviewed Nursing Documentation: PMH: Agreed, PSxH: Agreed Nursing Documentation-PMH Past Medical History: No History, Except For Hx Cardiac Problems: Yes Hx Hypertension: Yes Hx Asthma: Yes Hx COPD: Yes - Emphysema Hx Cancer: No Hx Gastrointestinal Problems: No Hx Neurological Problems: Yes - Aortic aneurysm Hx 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 Hx Syncope: Yes Review of Systems All Other Systems: negative except mentioned in HPI Physical Exam Vital Signs Date Time Temp Pulse Resp B/P (MAP) Pulse Ox O2 Delivery O2 Flow Rate FiO2 03/29/17 11:07 97.9 84 16 195/121 100 Room Air Sp02 EP Interpretation: reviewed Labs Laboratory Tests Test 03/30/17 07:50 White Blood Count 4.4 K/UL (4.8-10.8) L Red Blood Count 4.42 M/UL (4.20-5.40) Hemoglobin 12.4 G/DL (12.0-16.0) Hematocrit 38.1 % (37.0-47.0) Mean Corpuscular Volume 86 FL (80-99) Mean Corpuscular Hemoglobin 28.0 PG (27.0-31.0) Mean Corpuscular Hemoglobin Concent 32.5 G/DL (32.0-36.0) Red Cell Distribution Width 16.2 % (11.6-14.8) H Platelet Count 266 K/UL (150-450) Mean Platelet Volume 8.3 FL (6.5-10.1) Neutrophils (%) (Auto) 45.6 % (45.0-75.0) Lymphocytes (%) (Auto) 40.9 % (20.0-45.0) Monocytes (%) (Auto) 7.6 % (1.0-10.0) Eosinophils (%) (Auto) 4.2 % (0.0-3.0) H Basophils (%) (Auto) 1.7 % (0.0-2.0) Prothrombin Time 9.5 SEC (9.30-11.50) Prothromb Time International Ratio 0.9 (0.9-1.1) Activated Partial Thromboplast Time 24 SEC (23-33) Sodium Level 142 mEQ/L (135-145) Potassium Level 3.9 mEQ/L (3.4-4.9) Chloride Level 103 mEQ/L (98-107) Carbon Dioxide Level 22 mEQ/L (20-30) Anion Gap 17 (5-15) H Blood Urea Nitrogen 16 mg/dL (7-23) Creatinine 1.1 mg/dL (0.5-0.9) H Estimat Glomerular Filtration Rate > 60 mL/min (>60) Glucose Level 113 mg/dL (74-106) H Calcium Level 10.0 mg/dL (8.6-10.2) Total Bilirubin < 0.2 mg/dL (0.0-1.2) Aspartate Amino Transf (AST/SGOT) 15 U/L (5-40) Alanine Aminotransferase (ALT/SGPT) 14 U/L (3-33) Alkaline Phosphatase 61 U/L (35-104) Troponin I < 0.30 ng/mL (<=0.30) Total Protein 6.9 g/dL (6.6-8.7) Albumin 4.0 g/dL (3.5-5.2) Globulin 2.9 g/dL Albumin/Globulin Ratio 1.3 (1.0-2.7) Triglycerides Level 400 mg/dL (< 150) H Cholesterol Level 280 mg/dL (< 200) H LDL Cholesterol 166 mg/dL (60-99) H HDL Cholesterol 34 mg/dL (> 60) Cholesterol/HDL Ratio 8.2 (3.3-4.4) H General Appearance: no apparent distress, alert Head: normocephalic EENT: PERRL/EOMI, normal ENT inspection Neck: supple Respiratory: normal breath sounds, no respiratory distress Cardiovascular: normal rate Gastrointestinal: normal inspection, non tender, soft Rectal: deferred Musculoskeletal: back normal Neurologic: normal inspection, alert, responsive Psychiatric: normal inspection, judgement/insight normal, memory normal Skin: normal inspection, normal color, no rash, warm/dry Lymphatic: normal inspection, no adenopathy Current Medications Current Medications Medications (Trade) Dose Ordered Sig/Rylee Route PRN Reason Start Time Stop Time Status Last Admin Dose Admin Acetaminophen (Tylenol) 650 mg Q4H PRN ORAL fever 03/29/17 15:15 04/28/17 15:14 Al Hydroxide/Mg Hydroxide (Mylanta II) 30 ml Q6H PRN ORAL dyspepsia 03/29/17 15:15 04/28/17 15:14 Albuterol/ Ipratropium (DuoNeb 0.5-3(2.5)mg/3ml) 3 ml Q4H PRN HHN Shortness of Breath 03/29/17 15:15 04/03/17 15:14 Amlodipine Besylate (Norvasc) 10 mg DAILY ORAL 03/29/17 21:00 04/28/17 20:59 03/30/17 08:36 Clonidine HCl (Catapres TTS-1) 1 patch ONCE A WEEK TDERMAL 03/29/17 22:00 04/28/17 21:59 03/29/17 22:00 Clonidine HCl (Catapres) 0.1 mg Q4H PRN ORAL SBP > 160 03/29/17 15:15 04/28/17 15:14 Clonidine HCl (Catapres) 0.1 mg QHS ORAL 03/29/17 21:00 04/28/17 20:59 03/29/17 20:53 Cyclobenzaprine HCl (Flexeril) 10 mg THREE TIMES A DAY ORAL 03/30/17 18:00 04/29/17 17:59 Dextrose (Dextrose 50%) STAT PRN IV Hypoglycemia 03/29/17 15:15 04/28/17 15:14 Diphenhydramine HCl (Benadryl) 25 mg Q6H PRN IVP Itching 03/29/17 21:30 04/28/17 21:29 03/30/17 14:36 Heparin Sodium (Porcine) (Heparin 5000 units/ml) 5,000 units EVERY 12 HOURS SUBQ 03/29/17 21:00 04/28/17 20:59 03/30/17 08:25 Lorazepam (Ativan 2mg/ml 1ml) 0.5 mg Q4H PRN IV For Anxiety 03/29/17 15:15 04/05/17 15:14 03/30/17 12:42 Morphine Sulfate (Morphine Sulfate) 2 mg Q4H PRN IVP For Pain 7-10 03/30/17 11:15 04/06/17 11:14 03/30/17 12:43 Nitroglycerin (Ntg) 0.4 mg Q5M X 3 DOSES PRN SL Prn Chest Pain 03/29/17 15:15 04/28/17 15:14 Polyethylene Glycol (Miralax) 17 gm HSPRN PRN ORAL Constipation 03/29/17 15:15 04/28/17 15:14 Promethazine HCl (Phenergan) 25 mg Q8H PRN IV Nausea & Vomiting 03/29/17 21:30 04/28/17 21:29 03/30/17 08:23 Temazepam (Restoril) 15 mg HSPRN PRN ORAL Insomnia 03/29/17 15:15 04/05/17 15:14 GI: Plan Problems: (1) Hypertensive urgency (2) Persistent vomiting (3) Chest pain (4) Intractable nausea and vomiting (5) Anemia Plan symptomatic treatment monitor H&H, prn transfusions cont Phenergan prn consider reducing opioid use ppi fu lipase level mishel fu labs Discussed with Dr. Oden. Thank you for referring this patient, we will follow. MAURICIO ODEND 04/01/17 8159: History of Present Illness General Reason for Hospitalization: Chest Pain Present Illness Home Meds Active Scripts Acetaminophen With Codeine (T#3) (TYLENOL #3 TAB*) Y Tab, 1 TAB ORAL Q6HR Y for 10 Days, TAB Prov:JANET KEMP 03/31/17 Reported Medications Aspirin* (ASPIR 81*) 81 Mg Tablet.dr, 81 MG ORAL DAILY, TAB 03/29/17 Lorazepam* (ATIVAN*) 1 Mg Tablet, 1 MG ORAL BEDTIME, TAB 03/29/17 Albuterol Sulfate* (ALBUTEROL SULFATE HHN*) 2.5 Mg/3 Ml Vial.neb, 3 ML INH TID, EA 03/29/17 Amlodipine Besylate (Norvasc) 2.5 Mg Tablet, ORAL DAILY, TAB 03/14/17 Benazepril Hcl* (LOTENSIN*) 20 Mg Tablet, 20 MG ORAL DAILY, TAB 03/14/17 Xbppuikea-Uiu-0* ([id number]-6*) 1 Each Patch.tdwk, 1 PATCH TDERMAL ONCE A WEEK, PATCH 03/14/17 Clonidine Hcl* (CATAPRES*) 0.1 Mg Tablet, 0.1 MG ORAL QHS, TAB 06/04/14 Benazepril Hcl* (BENAZEPRIL HCL*) 20 Mg Tablet, 20 MG ORAL DAILY, TAB 06/04/14 Allergies: Coded Allergies: METHYLPHENIDATE (Verified Allergy, Unknown, 03/14/17) METOCLOPRAMIDE (Verified Allergy, Unknown, 03/14/17) ONDANSETRON (Verified Allergy, Unknown, 03/14/17) TRAMADOL (Verified Allergy, Unknown, 03/14/17) CHLORPROMAZINE (Verified Adverse Reaction, Intermediate, Shortness of Breath, 06/03/14) KETOROLAC (Verified Adverse Reaction, Intermediate, 06/03/14) PENICILLINS (Verified Adverse Reaction, Intermediate, 06/03/14) IBUPROFEN (Unverified Adverse Reaction, Unknown, 06/03/14) Uncoded Allergies: CONTRAST DYE (Allergy, Unknown, 03/14/17) GI: Plan Plan The patient was seen and examined at bedside and all new and available data was reviewed in the patients chart. I agree with the above findings, impression and plan. (Patient seen earlier today. Signature stamp does not reflect patient encounter time.). -[facility]ua [facility]inoP[facility] Alonzo N.POdalis Mar 30, 2017 15:37 JOSHUA ODEN Apr 01, 2017 14:49
[2017-03-30 16:00] VITALS: BP 138/88
--- NOTE | 2017-03-30 16:21 | Diagnostic Imaging Report ---
Indication: Pain Findings: 3 views of the right shoulder were obtained. No acute fractures, malalignment, erosions or periostitis are identified. Bone mineralization is within normal limits. Soft tissues are unremarkable. Impression: Negative examination of the shoulder.
--- NOTE | 2017-03-30 16:22 | Diagnostic Imaging Report ---
Indication: Pain Findings: 2 views of the right humerus were obtained. No acute fractures, malalignment, erosions or periostitis are identified. Bone mineralization is within normal limits. Soft tissues are unremarkable. Impression: Negative examination of the humerus
--- NOTE | 2017-03-30 16:22 | Diagnostic Imaging Report ---
Indication: Pain Findings: 2 views of the right forearm were obtained. No acute fractures, malalignment, erosions or periostitis are identified. Bone mineralization is within normal limits. Soft tissues are unremarkable. Impression: Negative examination of the forearm.
--- NOTE | 2017-03-30 18:04 | Cardiology Report ---
APPROVED REPORT EKG Measurement Heart [id number] Normal sinus rhythm Moderate voltage criteria for LVH, may be normal variant Borderline ECG
[2017-03-30] MEDS: Cyclobenzaprine 10mg Tab ORAL SCH (18:28)
--- NOTE | 2017-03-30 19:30 | Consultation ---
DATE OF CONSULTATION: 03/30/2017 SURGICAL CONSULTATION REASON FOR CONSULTATION: Right arm pain, post fall injury. History Of Present Illness: This 51-year-old, 1 para 1, female with known history of hypertension suffered a syncopal episode yesterday morning. She had blunt trauma to the right chest wall and right arm. She also complained of abdominal pain, nausea and vomiting. She was admitted for further workup. Past Medical History: Previous surgeries, none. Medical problems include hypertension for 20 years. She has some elements of chronic obstructive pulmonary disease and opioid dependency. Medications: Amlodipine 2.5 mg daily, aspirin 81 mg daily, benazepril 20 mg daily, clonidine 0.1 mg at bedtime, clonidine patch one dermal application once a week, Ativan 1 mg at bedtime, and albuterol inhaler 2.5 mg in 3 mL vial. Allergies: Methylphenidate, metoclopramide, ondansetron, tramadol, chlorpromazine, Ketoralac, penicillin and ibuprofen. SOCIAL HISTORY: Tobacco, one cigarette per day. Alcohol, none. Family History: Positive for hypertension. The patient's father of a massive myocardial infarction. Review Of Systems: Recurring headaches and emphysema. The patient denies chest pain. There is no history of peptic ulcer disease. She denies any history of hepatitis and she is a 1 para 1 female. Her last menstrual period was at age 46. Other findings, the patient claims she was told she had a herniated cervical disk in the past. PHYSICAL EXAMINATION: General: A well-developed and well-nourished female, complaining of right shoulder pain. Vital Signs: Temperature 96.4 degrees, blood pressure 146/96, pulse 92, and respirations 19. HEENT: Normocephalic. Pupils are equal and reactive to light. There was no scleral icterus. NECK: Supple. LUNGS: Clear. HEART: A regular rhythm. ABDOMEN: Soft. There was no organomegaly. Extremities: No edema in the both lower legs. The right forearm show some tenderness on the dorsal that is the extensor aspect. Radial and ulnar pulses are intact. Motor function is intact in all digits. There is tenderness in the dorsal forearm. There was no axillary swelling on the right side. Impression: Syncope and fall injury to the right shoulder, right chest wall and right forearm contusion. No evidence of compartment syndrome. Plan: There is no need for surgical intervention at this time. She will need analgesic and followup as per her primary doctor. Thank you. Catracho Willard M.D. DR: EILEEN JOB#: [id number] CC:
[2017-03-30 20:00] VITALS: BP 144/87
--- NOTE | 2017-03-30 23:15 | Consultation ---
DATE OF CONSULTATION: 03/30/2017 NEUROLOGICAL CONSULTATION CONSULTING PHYSICIAN: Edgardo Weldon M.D. REFERRING PHYSICIAN: Zaida Fraser M.D. History Of Present Illness: This is a 51-year-old female seen in neurological consultation to evaluate the transient loss of consciousness with severe musculoligamentous trauma. According to the patient, on the day of admission, 03/28/2017, she was doing fairly well, standing and talking to someone when she had suddenly a sensation of severe flutter in her heart. She lost consciousness and fell backwards landing on her head, upper back, and right side of the body. Upon awakening, for a minute or 2, she was confused. Then, she came back to her senses. She felt severe pain at the injured site. She was admitted to this hospital, complaining of pain /10, and complained of pressure on the left side of chest, which was so severe. The patient indicated that in the past, she had cardiac catheterization and small aortic aneurysm. Her vital signs included blood pressure of 195/121, temperature 97.9 degrees, and pulse 84. She has had multiple sites of contusion noted. She was diagnosed with hypertensive urgency, opioid-seeking behavior, and persistent vomiting. Her imaging studies include a chest x-ray revealing no acute abnormalities. The patient had repeated doses of Phenergan, Dilaudid, and Benadryl while under observation. Lab work included a normal CBC studies, normal coagulation panel, urinalysis, and chemistry panel except highly elevated triglycerides 400, cholesterol 280, LDL 166, but normal TSH and troponins. There was anion gap of 17. Toxicology panel was negative. Since admission, she continued to have persistent pain and discomfort at the injured site. She was stating that morphine did not help her and she would like to have Dilaudid, which does help with her pain. Past Medical History: The patient has a history of hypertension and anxiety disorder. Medications: Her current treatment list included amlodipine, clonidine, Benadryl as needed, Pepcid, lorazepam as needed, morphine sulfate 2 mg IV q.4 h. p.r.n., nitroglycerin, promethazine, and temazepam. Allergies: Chlorpromazine, contrast dye, ibuprofen, ketorolac, methylphenidate, metoclopramide, ondansetron, penicillin, and tramadol. 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 Denies alcohol or drug abuse. FAMILY HISTORY: Noncontributory. Review Of Systems: Complains of persistent nausea and vomiting, severe headache, tinnitus, pain in her upper back and lower back, and mainly pain in her right shoulder, radiating to right upper extremity and left chest region. No urine or bowel incontinence. Normal ambulation. Normal respiratory function. PHYSICAL EXAMINATION: General: The patient was found to be asleep. She was easily awakened. Vital Signs: Included blood pressure 150/93, temperature 96.9 degrees, and heart rate of 84. HEENT: Head, normocephalic. Musculoskeletal: There was tenderness on palpation at the base of skull. Significant tenderness to palpation of right shoulder and right periscapular region. There is some swelling in the right forearm, tender. There was tenderness on palpation of cervical paraspinal and lumbar paraspinal regions. Peripheral pulses 1+ and symmetric. Neurologic: Mental Status: The patient is fully alert and oriented x3 with no evidence of aphasia or apraxia. Cognitive function normal. The patient was very upset that she is not getting enough medication for pain management. She suggested that she would have Dilaudid. Cranial Nerves Cranial Nerve II: Pupils both responding to light and accommodation. Extraocular movements intact. No nystagmus. CRANIAL NERVE V: Normal corneal responses. CRANIAL NERVE VII: No facial asymmetry. CRANIAL NERVE VIII: Normal hearing. CRANIAL NERVES IX THROUGH XII: Within normal limits. Motor Examination revealed normal muscle tone and strength reduced due to pain in the right upper extremity, 3/5. Limited range of motion of the right shoulder due to pain. Diffuse tenderness on palpation of the right upper extremity and slight swelling in the right forearm region. Deep tendon reflexes 1+ and symmetric. Plantar responses flexor. Sensory Examination: Decreased response to pin stimulation in right shoulder, right arm, and right side of the neck. Gait Stable. IMPRESSION: 1. History of syncopal episode, probably vasovagal. 2. Status post a blunt head, neck, and right side of the body injury with acute pain syndrome. 3. Hypertension, poor control. 4. History of anxiety. Recommendations: The patient is insisting on using opiates. Meanwhile, she is allergic to nonsteroidal agents and tramadol. We will add Flexeril 10 mg t.i.d. as a muscle relaxant, will need outpatient physical therapy, Dilaudid for breakthrough pain 1 mg q.6 h. p.r.n., and extra-strength Tylenol q.6 h. for [id number] pain. Antianxiety medications should be also considered. Thank you for allowing me to see this interesting patient in neurological consultation. Edgardo Dimas Weldon DR: ALYSIA JOB#: [id number] CC:
[2017-03-31] VITALS: BP 132/82
[2017-03-31 04:00] VITALS: BP 125/80
[2017-03-31] MEDS: DiphenhydrAMINE 50mg/ml Inj IVP PRN ×2 (04:33→10:38)
[2017-03-31] MEDS: Morphine Sulfate 2mg/ml Inj IVP PRN ×3 (04:33→13:17)
[2017-03-31 08:15] VITALS: BP 139/94
[2017-03-31 08:23] LABS: BASOPHILS % (AUTO) 2.3 % (0.0-2.0); EOSINOPHILS % (AUTO) 6.3 % (0.0-3.0); LYMPHOCYTES % (AUTO) 33.8 % (20.0-45.0); MEAN CORPUSCULAR HEMOGLOBIN 27.5 PG (27.0-31.0); MEAN CORPUSCULAR HGB CONC 31.9 G/DL (32.0-36.0); MEAN CORPUSCULAR VOLUME 86 FL (80-99); MEAN PLATELET VOLUME 7.9 FL (6.5-10.1); MONOCYTES % (AUTO) 6.6 % (1.0-10.0); PLATELET COUNT 240 K/UL (150-450); RED BLOOD COUNT 5.08 M/UL (4.20-5.40); RED CELL DISTRIBUTION WIDTH 16.5 % (11.6-14.8); WHITE BLOOD COUNT 3.9 K/UL (4.8-10.8)
[2017-03-31 08:36] LABS: ANION GAP 13 (5-15); CALCIUM 10.3 mg/dL (8.6-10.2); CARBON DIOXIDE 25 mEQ/L (20-30); CHLORIDE 102 mEQ/L (98-107); CREATININE 1.1 mg/dL (0.5-0.9); GLOMERULAR FILTRATION RATE > 60 mL/min (>60); HEMOLYSIS 73; LIPASE 51 U/L (< 60); POTASSIUM 4.6 mEQ/L (3.4-4.9); SODIUM 140 mEQ/L (135-145)
[2017-03-31] MEDS: Cyclobenzaprine 10mg Tab ORAL SCH ×2 (08:43→13:00)
[2017-03-31] MEDS: Heparin 5000 units/ml inj SUBQ SCH (08:50)
[2017-03-31] MEDS: LORazepam Inj 2mg/ml 1ml IV PRN ×2 (09:07→13:16)
--- NOTE | 2017-03-31 10:04 | General Progress Note ---
Progress Note Progress Note Surgery: patient seen and examined at bedside. no acute events. still complaining of pain "all over". States she needs more pain meds. states that when she goes home she needs and wants pain meds. no n/v/f/c. Xrays reviewed and no abnormalities noted. just has some bruising and small right forearm hematoma after fall. no acute surgery necessary diet as tolerated okay to use extremities as tolerated okay to d/c from surgical standpoint Torsten Wallace Mar 31, 2017 10:04
--- NOTE | 2017-03-31 10:22 | GI Progress Note ---
Assessment/Plan Problems: (1) Intractable nausea and vomiting ICD Codes: R11.2 - Nausea with vomiting, unspecified SNOMED: 516303577, 965141924 (2) Anemia ICD Codes: D64.9 - Anemia, unspecified SNOMED: 542888859 (3) Persistent vomiting ICD Codes: R11.10 - Vomiting, unspecified SNOMED: 117422813 Status: stable, unchanged Status Narrative Discussed with Dr. Ball. Assessment/Plan symptomatic treatment monitor H&H, prn transfusions cont Phenergan prn zofran prn pain mgmt, consider reducing opioid use ppi fu labs Subjective Subjective abdominal pain Objective Last 24 Hour Vital Signs Date Time Temp Pulse Resp B/P (MAP) Pulse Ox O2 Delivery O2 Flow Rate FiO2 03/31/17 09:07 95 139/94 03/31/17 08:15 97.5 95 18 139/94 100 Room Air 03/31/17 07:13 84 18 Room Air 03/31/17 04:00 97.0 86 23 125/80 97 Room Air 03/31/17 04:00 85 03/31/17 00:00 97 03/31/17 00:00 97.5 96 24 132/82 95 Room Air 03/30/17 20:56 144/87 03/30/17 20:00 96 03/30/17 20:00 97.5 96 22 144/87 94 Room Air 03/30/17 19:00 82 18 Room Air 03/30/17 16:00 97.2 87 23 138/88 98 Room Air 03/30/17 16:00 77 03/30/17 14:28 87 96 106 03/30/17 12:00 96.9 84 22 151/93 97 Room Air 03/30/17 12:00 85 03/30/17 11:46 84 Laboratory Tests Test 03/31/17 07:12 White Blood Count 3.9 K/UL (4.8-10.8) L Red Blood Count 5.08 M/UL (4.20-5.40) Hemoglobin 14.0 G/DL (12.0-16.0) Hematocrit 43.7 % (37.0-47.0) Mean Corpuscular Volume 86 FL (80-99) Mean Corpuscular Hemoglobin 27.5 PG (27.0-31.0) Mean Corpuscular Hemoglobin Concent 31.9 G/DL (32.0-36.0) L Red Cell Distribution Width 16.5 % (11.6-14.8) H Platelet Count 240 K/UL (150-450) Mean Platelet Volume 7.9 FL (6.5-10.1) Neutrophils (%) (Auto) 51.0 % (45.0-75.0) Lymphocytes (%) (Auto) 33.8 % (20.0-45.0) Monocytes (%) (Auto) 6.6 % (1.0-10.0) Eosinophils (%) (Auto) 6.3 % (0.0-3.0) H Basophils (%) (Auto) 2.3 % (0.0-2.0) H Sodium Level 140 mEQ/L (135-145) Potassium Level 4.6 mEQ/L (3.4-4.9) Chloride Level 102 mEQ/L (98-107) Carbon Dioxide Level 25 mEQ/L (20-30) Anion Gap 13 (5-15) Blood Urea Nitrogen 18 mg/dL (7-23) Creatinine 1.1 mg/dL (0.5-0.9) H Estimat Glomerular Filtration Rate > 60 mL/min (>60) Glucose Level 106 mg/dL (74-106) Calcium Level 10.3 mg/dL (8.6-10.2) H Lipase 51 U/L (< 60) Height (Feet): 5 Height (Inches): 6.00 Weight (Pounds): 175 General Appearance: no apparent distress, alert Cardiovascular: normal rate Respiratory/Chest: normal breath sounds, no respiratory distress Abdominal Exam: normal bowel sounds, non tender, soft Extremities: normal range of motion Maryam Tolentino N.P. Mar 31, 2017 10:22
[2017-03-31 11:22] VITALS: BP 140/80
[2017-03-31] MEDS ORDERED: ACETAMINOPHEN-1 EAC1 ORAL (11:37)
--- NOTE | 2017-03-31 11:44 | Pulmonology Progress Note ---
Assessment/Plan Problems: (1) Syncope (2) Hypertensive urgency (3) HTN (hypertension) (4) Persistent vomiting (5) Drug-seeking behavior Assessment/Plan all studies were negative dc home with out patient Drug rehab and psych f/u Subjective ROS Limited/Unobtainable: No HEENT: Repors: no symptoms Cardiovascular: Reports: no symptoms Allergies: Coded Allergies: METHYLPHENIDATE (Verified Allergy, Unknown, 03/14/17) METOCLOPRAMIDE (Verified Allergy, Unknown, 03/14/17) ONDANSETRON (Verified Allergy, Unknown, 03/14/17) TRAMADOL (Verified Allergy, Unknown, 03/14/17) CHLORPROMAZINE (Verified Adverse Reaction, Intermediate, Shortness of Breath, 06/03/14) KETOROLAC (Verified Adverse Reaction, Intermediate, 06/03/14) PENICILLINS (Verified Adverse Reaction, Intermediate, 06/03/14) IBUPROFEN (Unverified Adverse Reaction, Unknown, 06/03/14) Uncoded Allergies: CONTRAST DYE (Allergy, Unknown, 03/14/17) Objective Last 24 Hour Vital Signs Date Time Temp Pulse Resp B/P (MAP) Pulse Ox O2 Delivery O2 Flow Rate FiO2 03/31/17 11:22 96.8 96 18 140/80 100 Room Air 03/31/17 09:07 95 139/94 03/31/17 08:15 97.5 95 18 139/94 100 Room Air 03/31/17 07:13 84 18 Room Air 03/31/17 04:00 97.0 86 23 125/80 97 Room Air 03/31/17 04:00 85 03/31/17 00:00 97 03/31/17 00:00 97.5 96 24 132/82 95 Room Air 03/30/17 20:56 144/87 03/30/17 20:00 96 03/30/17 20:00 97.5 96 22 144/87 94 Room Air 03/30/17 19:00 82 18 Room Air 03/30/17 16:00 97.2 87 23 138/88 98 Room Air 03/30/17 16:00 77 03/30/17 14:28 87 96 106 03/30/17 12:00 96.9 84 22 151/93 97 Room Air 03/30/17 12:00 85 03/30/17 11:46 84 Intake and Output 03/31/17 04/01/17 19:00 07:00 Intake Total 120 ml Balance 120 ml Intake Oral 120 ml # Voids 1 General Appearance: WD/WN HEENT: normocephalic, atraumatic Respiratory/Chest: chest wall non-tender, normal breath sounds Cardiovascular: normal peripheral pulses, no gallop/murmur Abdomen: normal bowel sounds Extremities: no cyanosis Microbiology Date/Time Source Procedure Growth Status 03/29/17 13:50 Nasal Nares MRSA Culture - Final NO METHICILLIN RESISTANT STAPH AUREUS... Complete 03/29/17 13:50 Rectum VRE Culture - Final NO VANCOMYCIN RESISTANT ENTEROCOCCUS ... Complete Laboratory Tests 03/31/17 07:12: White Blood Count 3.9L, Red Blood Count 5.08, Hemoglobin 14.0, Hematocrit 43.7, Mean Corpuscular Volume 86, Mean Corpuscular Hemoglobin 27.5, Mean Corpuscular Hemoglobin Concent 31.9L, Red Cell Distribution Width 16.5H, Platelet Count 240 , Mean Platelet Volume 7.9, Neutrophils (%) (Auto) 51.0, Lymphocytes (%) (Auto) 33.8, Monocytes (%) (Auto) 6.6, Eosinophils (%) (Auto) 6.3H, Basophils (%) (Auto ) 2.3H, Sodium Level 140, Potassium Level 4.6, Chloride Level 102, Carbon Dioxide Level 25, Anion Gap 13, Blood Urea Nitrogen 18, Creatinine 1.1H, Estimat Glomerular Filtration Rate > 60, Glucose Level 106, Calcium Level 10.3H , Lipase 51 Current Medications Medications (Trade) Dose Ordered Sig/Rylee Route PRN Reason Start Time Stop Time Status Last Admin Dose Admin Acetaminophen (Tylenol) 650 mg Q4H PRN ORAL fever 03/29/17 15:15 04/28/17 15:14 Al Hydroxide/Mg Hydroxide (Mylanta II) 30 ml Q6H PRN ORAL dyspepsia 03/29/17 15:15 04/28/17 15:14 Albuterol/ Ipratropium (DuoNeb 0.5-3(2.5)mg/3ml) 3 ml Q4H PRN HHN Shortness of Breath 03/29/17 15:15 04/03/17 15:14 Amlodipine Besylate (Norvasc) 10 mg DAILY ORAL 03/29/17 21:00 04/28/17 20:59 03/31/17 09:07 Clonidine HCl (Catapres TTS-1) 1 patch ONCE A WEEK TDERMAL 03/29/17 22:00 04/28/17 21:59 03/29/17 22:00 Clonidine HCl (Catapres) 0.1 mg Q4H PRN ORAL SBP > 160 03/29/17 15:15 04/28/17 15:14 Clonidine HCl (Catapres) 0.1 mg QHS ORAL 03/29/17 21:00 04/28/17 20:59 03/30/17 20:56 Cyclobenzaprine HCl (Flexeril) 10 mg THREE TIMES A DAY ORAL 03/30/17 18:00 04/29/17 17:59 03/31/17 08:43 Dextrose (Dextrose 50%) STAT PRN IV Hypoglycemia 03/29/17 15:15 04/28/17 15:14 Diphenhydramine HCl (Benadryl) 25 mg Q6H PRN IVP Itching 03/29/17 21:30 04/28/17 21:29 03/31/17 10:38 Heparin Sodium (Porcine) (Heparin 5000 units/ml) 5,000 units EVERY 12 HOURS SUBQ 03/29/17 21:00 04/28/17 20:59 03/31/17 08:50 Lorazepam (Ativan 2mg/ml 1ml) 0.5 mg Q4H PRN IV For Anxiety 03/29/17 15:15 04/05/17 15:14 03/31/17 09:07 Morphine Sulfate (Morphine Sulfate) 2 mg Q4H PRN IVP For Pain 7-10 03/30/17 11:15 04/06/17 11:14 03/31/17 08:46 Nitroglycerin (Ntg) 0.4 mg Q5M X 3 DOSES PRN SL Prn Chest Pain 03/29/17 15:15 04/28/17 15:14 Polyethylene Glycol (Miralax) 17 gm HSPRN PRN ORAL Constipation 03/29/17 15:15 04/28/17 15:14 Promethazine HCl (Phenergan) 25 mg Q8H PRN IV Nausea & Vomiting 03/29/17 21:30 04/28/17 21:29 03/31/17 09:23 Temazepam (Restoril) 15 mg HSPRN PRN ORAL Insomnia 03/29/17 15:15 04/05/17 15:14 JANET KEMP Mar 31, 2017 11:44
--- NOTE | 2017-04-01 15:31 | Discharge Summary ---
Discharge Summary Hospital Course Date of Admission Mar 29, 2017 at 12:40 Date of Discharge Mar 31, 2017 at 14:00 Admitting Diagnosis syncope, hypertensive urgency HPI Catalina Rodríguez is a 51 year old female who was admitted on Mar 29, 2017 at 12:40 for Syncope,Hypertensive Urgency Hospital Course [id number] Discharge Discharge Disposition Patient was discharged to Home (01) Discharge Diagnoses: Consuelo Radford NP Apr 01, 2017 15:31
--- NOTE | 2017-04-02 05:30 | Discharge Summary 2 SIG ---
DATE OF ADMISSION: 03/29/2017 DATE OF DISCHARGE: 03/31/2017 CONSULTANTS: 1. Edgardo Weldon M.D. 2. Catracho Willard M.D. 3. Joshua Ball M.D. 4. Danny Villarreal M.D. Brief Hospital Course: The patient is a 51-year-old female with history of hypertension and drug-seeking behavior, presented to ED after passing out and falling hitting her right chest. She complained of left-sided chest pressure and had nausea and vomiting. She had a cardiac catheterization done in the past and previous workups were all negative. On arrival to ED, evaluation showed elevated blood pressure 195/121. EKG done showed normal sinus rhythm with LVH. Chest x-ray showed no fractures or infiltrates. Urine toxicology was negative. Troponin was negative. She was admitted to telemetry for evaluation of syncope and hypertensive urgency. She underwent cardiac evaluation. Electrocardiogram was negative. Troponins negative. She had a prior CT coronary angiogram at [facility] that rules out possibility of coronary disease. She had a syncope, possible vasovagal syncope, secondary to volume depletion. The patient indicated she passed out for a fraction of seconds. Nevertheless, blood pressure was elevated and at time of admission was 195/121. She was resumed on her usual blood pressure medications and she complained of pain on the right arm and right chest, secondary to fall. Surgical evaluation was done, there was no evidence of compartment syndrome, no need for surgical intervention. She insisted on using opiates, as she is allergic to NSAIDs and tramadol. She was given Flexeril, muscle relaxant, and anti-anxiety medications Ativan 0.5 mg q.4 h. p.r.n. She had been nauseated and vomiting. She was seen by GI. She was given symptomatic treatments. Lipase was within normal limits. She had x-rays of the forearm, humerus and shoulder. X-rays were negative. She was cleared to use extremities as tolerated. She was eventually discharged home. Advised outpatient drug rehabilitation and psychiatric followup. FINAL DIAGNOSES: 1. Syncope, possibly from vasovagal and dehydration. 2. Hypertensive urgency. 3. Hypertension. 4. Persistent vomiting. 5. Drug-seeking behavior. 6. Status post fall, negative for fractures. 7. Hyperdynamic left ventricle. 8. History of chest pain with negative CT coronary angiogram. DISPOSITION: The patient was discharged home. DISCHARGE MEDICATIONS: Refer to medication list. FOLLOWUP: The patient was advised to follow up with PMD in a week. Zaida Fraser M.D. I have been assigned to dictate discharge summary on this account and I was not involved in the patient's management. Consuelo Radford N.P. DR: VIDA JOB#: [id number] CC: GRABIEL
== END 2017-03-31 14:00 | disposition home or self-care (01) | DRG 199 ==
LOC: EMR 11:35 → 2E 12:40 → EDBEDREQ 14:16
DX: I16.0 Hypertensive urgency (principal); R55 Syncope and collapse; S20.211A Contusion of right front wall of thorax, initial encounter; D64.9 Anemia, unspecified; E86.0 Dehydration; S40.021A Contusion of right upper arm, initial encounter; S40.011A Contusion of right shoulder, initial encounter; W19.XXXA Unspecified fall, initial encounter; R11.2 Nausea with vomiting, unspecified; Z91.81 History of falling; Z88.6 Allergy status to analgesic agent; Z88.0 Allergy status to penicillin; Z88.8 Allergy status to other drugs, medicaments and biological substances; Z91.041 Radiographic dye allergy status; Z76.5 Malingerer [conscious simulation]; F41.9 Anxiety disorder, unspecified
CPT/HCPCS: 36415; 71010; 80048; 80053; 80061; 80300; 81003; 82550; 83690; 83880; 84443; 84484; 85025; 85610; 85651; 85730; 87081; 93005; 94664; 99285

== ENCOUNTER 2017-04-18 19:38 | Emergency (ER) | payer OTHER ==
[~2017-04-18] VITALS: Ht 167.6 cm; Wt 79.4 kg
[~2017-04-18 19:38] MED LIST changes: +ACETAMINOPHEN-1 EAC1 ORAL; +ALBUTEROL2.5 MG/3 M INH; +ASPIR 8181 MG ORAL; +ATIVAN1 MG ORAL
[2017-04-18 19:56] VITALS: BP 150/78
--- NOTE | 2017-04-18 19:57 | Emergency Room Report ---
History of Present Illness General Chief Complaint: chest pain Source: Patient Present Illness HPI Patient says with complaints of right-sided chest pain Pain has been ongoing for the past several days Denies any headache Patient reported vomiting as well Patient reports that she spoke to her physician who told her to come to the emergency room Denies any change with position or exertion Denies any fevers or chills denies any cough or shortness of breath Allergies: Coded Allergies: METHYLPHENIDATE (Verified Allergy, Unknown, 03/14/17) METOCLOPRAMIDE (Verified Allergy, Unknown, 03/14/17) ONDANSETRON (Verified Allergy, Unknown, 03/14/17) TRAMADOL (Verified Allergy, Unknown, 03/14/17) CHLORPROMAZINE (Verified Adverse Reaction, Intermediate, Shortness of Breath, 06/03/14) KETOROLAC (Verified Adverse Reaction, Intermediate, 06/03/14) PENICILLINS (Verified Adverse Reaction, Intermediate, 06/03/14) IBUPROFEN (Unverified Adverse Reaction, Unknown, 06/03/14) Uncoded Allergies: CONTRAST DYE (Allergy, Unknown, 03/14/17) Patient History Past Medical History: see triage record Pertinent Family History: none Reviewed Nursing Documentation: PMH: Agreed, PSxH: Agreed Nursing Documentation-PMH Hx Cardiac Problems: Yes Hx Hypertension: Yes Hx Asthma: Yes Hx COPD: Yes - Emphysema Hx Cancer: No Hx Gastrointestinal Problems: No Hx Neurological Problems: Yes - Aortic aneurysm Hx 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 Hx Syncope: Yes Review of Systems All Other Systems: negative except mentioned in HPI Physical Exam Pulse ox 98% on room air which is normal interpretation Sp02 EP Interpretation: reviewed, normal General Appearance: well appearing, no apparent distress Head: normocephalic, atraumatic Eyes: bilateral eye PERRL, bilateral eye EOMI ENT: hearing grossly normal, normal pharynx, TMs + canals normal, uvula midline Neck: full range of motion, supple, no meningismus, no bony tend Respiratory: lungs clear, normal breath sounds, no rhonchi, no respiratory distress, no retraction, no accessory muscle use Cardiovascular #1: normal peripheral pulses, regular rate, rhythm, no edema, no gallop, no JVD, no murmur Gastrointestinal: normal bowel sounds, non tender, soft, no mass, no organomegaly, non-distended, no guarding, no hernia, no pulsatile mass, no rebound Genitourinary: no CVA tenderness Musculoskeletal: normal inspection Neurologic: oriented x3, responsive, 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, motor strength/ tone normal, sensory intact Psychiatric: mood/affect normal Skin: normal color, no rash, warm/dry, palpation normal Lymphatic: normal inspection, no adenopathy Medical Decision Making Diagnostic Impression: Primary Impression: Chest pain Additional Impression: Refusal of care by patient ER Course Patient is a fairly complex patient with multiple differential to consideration including but not limited to cardiac cardiopulmonary and vascular emergencies Here the patient is requesting IV intervention I did notify the patient that initially he would be obtaining blood work and evaluation for cardiac pathology Patient however is not happy with this and reports that it she's not getting an IV that she's leaving Patient is aware of the consequences of leaving including but not limited to cardiac cardiopulmonary and possible Patient is awake and alert and leaving AGAINST MEDICAL ADVICE , EKG Diagnostic Results Rate: tachycardiac Rhythm: other ST Segments: other - Nonspecific ST and T-wave changes Rhythm Strip Diag. Results EP Interpretation: yes Rate: 66 Rhythm: NSR, no PVC's, no ectopy Status: unchanged Disposition: AGAINST MEDICAL ADVICE Condition: Unknown ANAM SANCHEZ D.O. Apr 18, 2017 19:57
[2017-04-18 20:13] VITALS: BP 137/80
--- NOTE | 2017-04-20 08:46 | Cardiology Report ---
APPROVED REPORT EKG Measurement Heart [id number] [place] [id number] [id number] Normal sinus rhythm Voltage criteria for left ventricular hypertrophy Prolonged QT Abnormal ECG
== END 2017-04-18 20:15 | disposition left against medical advice (07) ==
LOC: EMR 20:05
DX: R07.89 Other chest pain (principal); J44.9 Chronic obstructive pulmonary disease, unspecified; I10 Essential (primary) hypertension; Z88.6 Allergy status to analgesic agent; Z88.0 Allergy status to penicillin; Z88.8 Allergy status to other drugs, medicaments and biological substances; Z86.73 Personal history of transient ischemic attack (TIA), and cerebral infarction without residual deficits
CPT/HCPCS: 93005; 99282

== ENCOUNTER 2017-05-08 09:34 | Emergency (ER) | payer OTHER ==
[~2017-05-08] VITALS: Ht 170.2 cm; Wt 79.4 kg
[2017-05-08] MEDS ORDERED: Hydromorphone 0.5mg/0.5ml inj IVP ONE ×2 (10:15→11:45)
--- NOTE | 2017-05-08 10:20 | Emergency Room Report ---
History of Present Illness General Chief Complaint: Chest Pain Source: Patient Present Illness HPI The patient felt palpitations chasing after her grand kids. She slipped and fell down 4 stairs. She lost consciousness at that time. When she woke up family was around her. She remembers falling. She has pain in her neck right forearm and right knee. She's able to ambulate. She took aspirin and nitrates. The pain is still present. She doesn't feel palpitations at this time. Pain is 9/10, aching neck, lower back, R knee and R forearm, not radiating. The aspirin and nitro she took did not change the feeling in her chest. She is asking for dilaudid, phenergan and benadryl. She has multiple allergies. Her doctor evaluated her after this event and told her she would have to be admitted because of her HTN. She is on medication at this time. No fevers, NVD, dysuria, change in vision (aside from LOC), seizure activity, change in bowels. In the past she's had intractable vomiting and UGI bleeds. During previous admissions there were issues surrounding use of opiates. She was admitted 1 month ago for syncope with R arm pain. D/C dx: 1. Syncope, possibly from vasovagal and dehydration. 2. Hypertensive urgency. 3. Hypertension. 4. Persistent vomiting. 5. Drug-seeking behavior. 6. Status post fall, negative for fractures. 7. Hyperdynamic left ventricle. 8. History of chest pain with negative CT coronary angiogram. Allergies: Coded Allergies: METHYLPHENIDATE (Verified Allergy, Unknown, 03/14/17) METOCLOPRAMIDE (Verified Allergy, Unknown, 03/14/17) ONDANSETRON (Verified Allergy, Unknown, 03/14/17) TRAMADOL (Verified Allergy, Unknown, 03/14/17) CHLORPROMAZINE (Verified Adverse Reaction, Intermediate, Shortness of Breath, 06/03/14) KETOROLAC (Verified Adverse Reaction, Intermediate, 06/03/14) PENICILLINS (Verified Adverse Reaction, Intermediate, 06/03/14) IBUPROFEN (Unverified Adverse Reaction, Unknown, 06/03/14) Uncoded Allergies: CONTRAST DYE (Allergy, Unknown, 03/14/17) Patient History Past Medical History: see triage record, old chart reviewed Social History: Reports: smoking, Denies: alcohol use, drug use Social History Narrative at home with grand kids Reviewed Nursing Documentation: PMH: Agreed, PSxH: Agreed Nursing Documentation-PMH Past Medical History: No History, Except For Hx Cardiac Problems: Yes Hx Hypertension: Yes Hx Asthma: Yes Hx COPD: Yes - Emphysema Hx Cancer: No Hx Gastrointestinal Problems: No Hx Neurological Problems: Yes - Aortic aneurysm Hx 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 Hx Syncope: Yes Review of Systems All Other Systems: negative except mentioned in HPI Physical Exam Vital Signs Date Time Temp Pulse Resp B/P (MAP) Pulse Ox O2 Delivery O2 Flow Rate FiO2 05/08/17 09:44 97.3 100 18 206/131 85 Room Air Sp02 EP Interpretation: reviewed, abnormal - o2 sat low, felt related to testing General Appearance: well appearing, GCS 15, mild distress Head: normocephalic Eyes: bilateral eye normal inspection, bilateral eye PERRL ENT: moist mucus membranes Neck: full range of motion, supple, no bony tend, other - poerterior tenderness - lower neck/upper back Respiratory: lungs clear, normal breath sounds Cardiovascular #1: regular rate, rhythm Cardiovascular #2: 2+ radial (R) Gastrointestinal: normal inspection, normal bowel sounds, non tender, no mass, non-distended Musculoskeletal: back normal - with muscle tenderness, gait/station normal - walking with limp R knee tenderness but ligs intact, normal range of motion, swelling - forearm R Neurologic: alert, oriented x3, 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, motor strength/tone normal, DTRs symmetric, sensory intact, cerebellar normal, normal gait - with limp, speech normal Psychiatric: mood/affect normal Skin: warm/dry, abrasions - R knee Medical Decision Making Diagnostic Impression: Primary Impression: Syncope Qualified Codes: R55 - Syncope and collapse Additional Impressions: Hypertensive urgency Transient hypoxia Fall Qualified Codes: W19.XXXA - Unspecified fall, initial encounter Palpitations Drug-seeking behavior Contusions right knee and forearm ER Course The patient is evaluated after loss of consciousness with head injury and contusions to her right forearm and knee. Differential includes contusion, neck strain, fracture, AMI, arrhythmia, electrolyte abnormalities. Based on clinical evaluation no x-rays are indicated of her right forearm and knee. She is complaining of vomiting and pain and also her blood pressure is out of control. She'll be treated with pain medication. Electrolytes and EKG need to be obtained some she complains about palpitations prior to the fall. Concern over low O2 sat, but patient denies dyspnea or chest pain at this time. She has a non-focal neurologic exam and CT head is not indicated. CT reviewed for syncope was "normal". CT of the neck shows degenerative disease without fracture. EKG without injury , Labs with normal WBC and H/H. Electrolytes and troponin normal. Patient is requiring multiple doses of Phenergan and still has vomiting episodes. She is required 2 doses of Dilaudid, Ativan and Benadryl with Phenergan. She is spitting up some specks with possible coffee grounds. O2 sat "spontaneously" improved to 99% with treatment of pain and vomiting. Patient was presented to Dr. Hernandez and transferred to the hospital for further observation via ALS. Laboratory Tests Test 05/08/17 09:06 White Blood Count 5.6 K/UL (4.8-10.8) Red Blood Count 4.96 M/UL (4.20-5.40) Hemoglobin 13.9 G/DL (12.0-16.0) Hematocrit 45.0 % (37.0-47.0) Mean Corpuscular Volume 91 FL (80-99) Mean Corpuscular Hemoglobin 28.1 PG (27.0-31.0) Mean Corpuscular Hemoglobin Concent 31.0 G/DL (32.0-36.0) L Red Cell Distribution Width 15.7 % (11.6-14.8) H Platelet Count 269 K/UL (150-450) Mean Platelet Volume 7.4 FL (6.5-10.1) Neutrophils (%) (Auto) 64.5 % (45.0-75.0) Lymphocytes (%) (Auto) 26.2 % (20.0-45.0) Monocytes (%) (Auto) 6.4 % (1.0-10.0) Eosinophils (%) (Auto) 1.6 % (0.0-3.0) Basophils (%) (Auto) 1.3 % (0.0-2.0) Prothrombin Time 9.0 SEC (9.30-11.50) L Prothrombin Time INR 0.9 (0.9-1.1) PTT 18 SEC (23-33) L Urine Color Pale yellow Urine Appearance Clear Urine pH 7 (4.5-8.0) Urine Specific [place] 1.010 (1.005-1.035) Urine Protein Negative (NEGATIVE) Urine Glucose (UA) Negative (NEGATIVE) Urine Ketones Negative (NEGATIVE) Urine Occult Blood Negative (NEGATIVE) Urine Nitrite Negative (NEGATIVE) Urine Bilirubin Negative (NEGATIVE) Urine Urobilinogen Normal MG/DL (0.0-1.0) Urine Leukocyte Esterase Negative (NEGATIVE) Sodium Level 139 MMOL/L (136-145) Potassium Level 4.2 MMOL/L (3.5-5.1) Chloride Level 105 MMOL/L (98-107) Carbon Dioxide Level 21 MMOL/L (21-32) Anion Gap 13 mmol/L (5-15) Blood Urea Nitrogen 9 mg/dL (7-18) Creatinine 1.0 MG/DL (0.55-1.30) Estimate Glomerular Filtration Rate > 60 mL/min (>60) Glucose Level 109 MG/DL (74-106) H Calcium Level 9.5 MG/DL (8.5-10.1) Total Bilirubin 0.3 MG/DL (0.2-1.0) Aspartate Amino Transferase (AST) 30 U/L (15-37) Alanine Aminotransferase (ALT) 30 U/L (12-78) Alkaline Phosphatase 78 U/L (46-116) Total Creatine Kinase 77 U/L (26-308) Troponin I 0.004 ng/mL (0.000-0.056) Pro-B-Type Natriuretic Peptide 92 pg/mL (0-125) Total Protein 8.1 G/DL (6.4-8.2) Albumin 3.8 G/DL (3.4-5.0) Globulin 4.3 g/dL Albumin/Globulin Ratio 0.9 (1.0-2.7) L Urine Opiates Screen Negative (NEGATIVE) Urine Barbiturates Screen Negative (NEGATIVE) Phencyclidine (PCP) Screen Negative (NEGATIVE) Urine Amphetamines Screen Negative (NEGATIVE) Urine Benzodiazepines Screen Negative (NEGATIVE) Urine Cocaine Screen Negative (NEGATIVE) Urine Marijuana (THC) Screen Negative (NEGATIVE) EKG Diagnostic Results Rate: normal Rhythm: NSR ST Segments: no acute changes Rhythm Strip Diag. Results EP Interpretation: yes Rhythm: NSR, no PVC's, no ectopy Chest X-Ray Diagnostic Results Chest X-Ray Diagnostic Results : Chest X-Ray Ordered: Yes Indication: Chest Pain Interpretation: no consolidation, no effusion, no pneumothorax, no acute cardiopulmonary disease Impression: No acute disease CT/MRI/US Diagnostic Results CT/MRI/US Diagnostic Results : Imaging Test Ordered: neck Impression djd, no fx Last Vital Signs Date Time Temp Pulse Resp B/P (MAP) Pulse Ox O2 Delivery O2 Flow Rate FiO2 05/08/17 13:54 97.3 82 18 185/104 99 Room Air Status: improved Disposition: XFER T-[facility] HOS[facility] Condition: Serious - but stable for transfer ALS to telemetry Referrals: [facility],REFERRING (PCP) Abilio Hough M.D. May 08, 2017 10:20
[2017-05-08 10:35] LABS: APPEARANCE,URINE CLEAR; BASOPHILS % (AUTO) 1.3 % (0.0-2.0); BILIRUBIN, URINE NEGATIVE (NEGATIVE); COLOR,URINE PALE YELLOW; EOSINOPHILS % (AUTO) 1.6 % (0.0-3.0); GLUCOSE, URINE (UA) NEGATIVE (NEGATIVE); HEMOGLOBIN 13.9 G/DL (12.0-16.0); KETONES,URINE NEGATIVE (NEGATIVE); LEUKOCYTE ESTERASE ,URINE NEGATIVE (NEGATIVE); LYMPHOCYTES % (AUTO) 26.2 % (20.0-45.0); MEAN CORPUSCULAR VOLUME 91 FL (80-99); MONOCYTES % (AUTO) 6.4 % (1.0-10.0); NEUTROPHILS % (AUTO) 64.5 % (45.0-75.0); NITRITE,URINE NEGATIVE (NEGATIVE); PH,URINE 7 (4.5-8.0); PLATELET COUNT 269 K/UL (150-450); PROTEIN,URINE NEGATIVE (NEGATIVE); RED BLOOD COUNT 4.96 M/UL (4.20-5.40); RED CELL DISTRIBUTION WIDTH 15.7 % (11.6-14.8); UROBILINOGEN,URINE NORMAL MG/DL (0.0-1.0); WHITE BLOOD COUNT 5.6 K/UL (4.8-10.8)
[2017-05-08] MEDS ORDERED: LORazepam Inj 2mg/ml 1ml IV ONE ×2 (10:45→12:45)
[2017-05-08 10:53] LABS: INR 0.9 (0.9-1.1)
[2017-05-08] MEDS ORDERED: DiphenhydrAMINE 50mg/ml Inj IVP ONE ×2 (11:00→12:45)
[2017-05-08 11:11] VITALS: BP 197/131
[2017-05-08 11:25] LABS: ANION GAP 13 mmol/L (5-15); BLOOD UREA NITROGEN 9 mg/dL (7-18); CALCIUM 9.5 MG/DL (8.5-10.1); CARBON DIOXIDE 21 MMOL/L (21-32); CHLORIDE 105 MMOL/L (98-107); POTASSIUM 4.2 MMOL/L (3.5-5.1); SODIUM 139 MMOL/L (136-145)
--- NOTE | 2017-05-08 11:29 | Diagnostic Imaging Report ---
Indication: TRAUMA Comparison: None Technique: Contiguous helical CT images of the cervical spine was performed. Axial, coronal and sagittal reconstructions were reformatted. Soft tissue and bony window algorithm was utilized. CT dose: Total DLP: 402 mGycm; Total CTDI volume 19.8 mGy Findings: There is normal alignment of the cervical spine. There are no acute fractures or subluxations. Vertebral body heights are intact. There are no compression fractures. There is a mild disc space narrowing at 56 with small anterior marginal osteophyte consistent with mild degenerative disease. Otherwise, the disc spaces are normal. Prevertebral soft tissues are normal. Odontoid is intact. Impression: No acute fractures or subluxations of the cervical spine. Mild degenerative disease at C5-[address] at [facility] is accredited by the [employer] and the scans are performed using protocols designed to limit radiation exposure to as low as reasonably achievable to attain images of sufficient resolution adequate for diagnostic evaluation.
--- NOTE | 2017-05-08 11:30 | Diagnostic Imaging Report ---
Indication: Chest pain Comparison: 03/29/2017 chest one view Findings: Single view of the chest shows a normal cardiomediastinal silhouette. Pulmonary vasculature is normal. Lung are clear. Soft tissues and osseous structures are within normal limits. Again noted is a hiatal hernia. Impression: No acute chest disease Hiatal hernia. No change from prior exam
[2017-05-08 11:36] LABS: ALANINE AMINOTRANSFERASE 30 U/L (12-78); ALBUMIN 3.8 G/DL (3.4-5.0); ALBUMIN/GLOBULIN RATIO 0.9 (1.0-2.7); ALKALINE PHOSPHATASE 78 U/L (46-116); ASPARTATE AMINO TRANSFERASE 30 U/L (15-37); BILIRUBIN,TOTAL 0.3 MG/DL (0.2-1.0); CREATINE KINASE 77 U/L (26-308)
[2017-05-08 13:08] VITALS: BP 185/104
[2017-05-08 13:54] VITALS: BP 185/104
--- NOTE | 2017-05-16 15:57 | Cardiology Report ---
APPROVED REPORT EKG Measurement Heart [id number] FL [id number] Normal sinus rhythm Voltage criteria for left ventricular hypertrophy Abnormal ECG
--- NOTE | 2017-05-16 15:57 | Cardiology Report ---
APPROVED REPORT EKG Measurement Heart [id number] RI 148P29 [id number] Normal sinus rhythm Voltage criteria for left ventricular hypertrophy Abnormal ECG
--- NOTE | 2017-05-16 15:57 | Cardiology Report ---
APPROVED REPORT EKG Measurement Heart [id number] RI [id number] Normal sinus rhythm Voltage criteria for left ventricular hypertrophy Abnormal ECG
== END 2017-05-08 13:57 | disposition short-term general hospital (02) ==
LOC: EMR 10:00
DX: R55 Syncope and collapse (principal); I16.0 Hypertensive urgency; R09.02 Hypoxemia; R00.2 Palpitations; S80.01XA Contusion of right knee, initial encounter; S50.11XA Contusion of right forearm, initial encounter; W10.9XXA Fall (on) (from) unspecified stairs and steps, initial encounter; Y92.89 Other specified places as the place of occurrence of the external cause; Z88.6 Allergy status to analgesic agent; Z88.8 Allergy status to other drugs, medicaments and biological substances; Z88.0 Allergy status to penicillin; Z91.041 Radiographic dye allergy status; Z76.5 Malingerer [conscious simulation]
CPT/HCPCS: 36415; 71010; 72125; 80053; 80307; 81003; 82550; 83880; 84484; 85025; 85610; 85730; 93005; 96372; 96374; 96375; 99285; J1170; J1200; J2550

== ENCOUNTER 2017-06-07 11:38 | Inpatient (IN) | payer OTHER ==
[~2017-06-07] VITALS: Ht 170.2 cm; Wt 83.9 kg
[2017-06-07] MEDS ORDERED: CATAPRES-TTS 21 EACH TDERMAL (12:27)
[2017-06-07] MEDS ORDERED: cloNIDine 0.2mg Tab ORAL ONE ×2 (12:30→14:15)
[2017-06-07] MEDS ORDERED: Haloperidol 5mg/ml Inj IM ONE ×2 (12:30→14:15)
[2017-06-07] MEDS ORDERED: DiphenhydrAMINE 50mg/ml Inj IVP ONE (12:45)
[2017-06-07 12:50] LABS: APPEARANCE,URINE SLIGHTLY CLOUDY; KETONES,URINE NEGATIVE (NEGATIVE); LEUKOCYTE ESTERASE ,URINE NEGATIVE (NEGATIVE); NITRITE,URINE NEGATIVE (NEGATIVE); PH,URINE 7 (4.5-8.0); PROTEIN,URINE NEGATIVE (NEGATIVE); UROBILINOGEN,URINE NORMAL MG/DL (0.0-1.0)
[2017-06-07 12:57] LABS: BACTERIA,URINE MODERATE /HPF; RBC,URINE 0 /HPF (0 - 2); SQUAMOUS EPITHELIAL CELL,UR OCCASIONAL /LPF (NONE/OCC); WBC,URINE 0-2 /HPF (0 - 2)
[2017-06-07 13:02] LABS: ANION GAP 10 mmol/L (5-15); CALCIUM 9.6 MG/DL (8.5-10.1); CARBON DIOXIDE 26 MMOL/L (21-32); CHLORIDE 106 MMOL/L (98-107); CREATININE 0.9 MG/DL (0.55-1.30); GLOMERULAR FILTRATION RATE > 60 mL/min (>60); POTASSIUM 3.9 MMOL/L (3.5-5.1); SODIUM 142 MMOL/L (136-145)
[2017-06-07] MEDS ORDERED: Norco 5mg/325mg tab ORAL ONE (13:15)
[2017-06-07 13:29] LABS: ALANINE AMINOTRANSFERASE 33 U/L (12-78); ASPARTATE AMINO TRANSFERASE 25 U/L (15-37); CKMB 0.7 NG/ML (0.0-3.6); TOTAL PROTEIN 7.4 G/DL (6.4-8.2)
[2017-06-07 13:48] VITALS: BP 156/84
--- NOTE | 2017-06-07 14:08 | Diagnostic Imaging Report ---
Indication: PAIN, syncope, head trauma Technique: Continuous helical CT scanning of the head was performed without intravenous contrast material. Axial and coronal 5 mm sections were generated. Radiation dose was minimized using automated exposure control Dose: Total Dose Length Product - DLP [address] Dose Index - CTDIvol(s) 70.38 mGy. Comparison: 03/14/2017 Findings: The ventricular system is normal in size and configuration. There is no shift of midline structures. No abnormal extra-axial fluid collections are noted. There is no evidence of intracerebral bleeding. No other abnormal high or low density areas are noted within the brain. The visualized orbits and sinuses are unremarkable. The mastoids are clear. The calvarium is intact. Findings are unchanged Impression: Normal CT scan of the head without contrast material. The CT scanner at [facility] is accredited by the [employer] and the scans are performed using protocols designed to limit radiation exposure to as low as reasonably achievable to attain images of sufficient resolution adequate for diagnostic evaluation.
--- NOTE | 2017-06-07 14:13 | Emergency Room Report ---
History of Present Illness General Chief Complaint: Hypertension Source: Patient Present Illness HPI Patient is a 51-year-old female who presented after having reported syncopal episode while on a ladder. Patient reports having fall from 2-3 steps. She reports having loss of consciousness the patient states that she had been taking her medications which include clonidine as well as medications for blood pressure. Patient reports being allergic to multiple medications. She reports having pain to her left ankle. She also reports having pain to her upper back. Allergies: Coded Allergies: METHYLPHENIDATE (Verified Allergy, Unknown, 03/14/17) METOCLOPRAMIDE (Verified Allergy, Unknown, 03/14/17) ONDANSETRON (Verified Allergy, Unknown, 03/14/17) TRAMADOL (Verified Allergy, Unknown, 03/14/17) CHLORPROMAZINE (Verified Adverse Reaction, Intermediate, Shortness of Breath, 06/03/14) KETOROLAC (Verified Adverse Reaction, Intermediate, 06/03/14) PENICILLINS (Verified Adverse Reaction, Intermediate, 06/03/14) IBUPROFEN (Unverified Adverse Reaction, Unknown, 06/03/14) Uncoded Allergies: CONTRAST DYE (Allergy, Unknown, 03/14/17) Patient History Past Medical History: see triage record Reviewed Nursing Documentation: PMH: Agreed, PSxH: Agreed Nursing Documentation-PMH Hx Cardiac Problems: Yes - Aortic aneurism Hx Hypertension: Yes Hx Asthma: Yes Hx COPD: Yes - Emphysema Hx Cancer: No Hx Gastrointestinal Problems: No Hx Neurological Problems: Yes - Aortic aneurysm Hx 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 Hx Syncope: Yes Review of Systems All Other Systems: negative except mentioned in HPI Physical Exam Vital Signs Date Time Temp Pulse Resp B/P (MAP) Pulse Ox O2 Delivery O2 Flow Rate FiO2 06/07/17 11:44 97.9 87 18 198/124 98 Room Air Sp02 EP Interpretation: reviewed, normal General Appearance: normal inspection, well appearing, no apparent distress, alert, GCS 15 Head: atraumatic ENT: normal ENT inspection, hearing grossly normal, normal voice Neck: normal inspection, full range of motion, supple, no bony tend Respiratory: normal inspection, lungs clear, normal breath sounds, no respiratory distress, no retraction, no wheezing Cardiovascular #1: regular rate, rhythm, no edema Gastrointestinal: normal inspection, normal bowel sounds, non tender, soft, no guarding, no hernia Genitourinary: no CVA tenderness Musculoskeletal: normal inspection, back normal, normal range of motion Neurologic: normal inspection, alert, oriented x3, responsive, spinning operator III-XII nml as tested, speech normal, abnormal gait - antalgic gait Psychiatric: normal inspection, judgement/insight normal, mood/affect normal Skin: normal inspection, normal color, no rash Medical Decision Making Diagnostic Impression: Primary Impression: Hypertensive urgency Additional Impressions: Left ankle sprain Syncope Fall ER Course Patient presented for syncope. Differential diagnosis included but was not limited to arrhythmia, orthostatic hypotension, hypovolemia, vasovagal, anemia among others.Because of complexity of patient's case laboratory testing and imaging studies were ordered. Patient was initially noted to have some evidence of nausea. Patient was given IV Benadryl. The patient was given antihypertensive medications after she eventually consented to anti-emetics Dr. Fraser was contacted for inpatient management due to complexity of medical condition.patient had been premedicated with Benadryl. prior to receiving Haldol. Patient was given IM Haldol. She was noted to have no evidence of allergy reaction to Haldol however she states that she feels itchy. The patient was noted to have improvement in her blood pressure. Labs Test 06/07/17 12:30 Urine Color Pale yellow Urine Appearance Slightly cloudy Urine pH 7 (4.5-8.0) Urine Specific [place] 1.010 (1.005-1.035) Urine Protein Negative (NEGATIVE) Urine Glucose (UA) Negative (NEGATIVE) Urine Ketones Negative (NEGATIVE) Urine Occult Blood Negative (NEGATIVE) Urine Nitrite Negative (NEGATIVE) Urine Bilirubin Negative (NEGATIVE) Urine Urobilinogen Normal MG/DL (0.0-1.0) Urine Leukocyte Esterase Negative (NEGATIVE) Urine RBC 0 /HPF (0 - 2) Urine WBC 0-2 /HPF (0 - 2) Urine Squamous Epithelial Cells Occasional /LPF Urine Bacteria Moderate /HPF (NONE) Urine HCG, Qualitative Negative Sodium Level 142 MMOL/L (136-145) Potassium Level 3.9 MMOL/L (3.5-5.1) Chloride Level 106 MMOL/L (98-107) Carbon Dioxide Level 26 MMOL/L (21-32) Anion Gap 10 mmol/L (5-15) Blood Urea Nitrogen 12 mg/dL (7-18) Creatinine 0.9 MG/DL (0.55-1.30) Estimat Glomerular Filtration Rate > 60 mL/min (>60) Glucose Level 109 MG/DL (74-106) Calcium Level 9.6 MG/DL (8.5-10.1) Total Bilirubin 0.3 MG/DL (0.2-1.0) Aspartate Amino Transf (AST/SGOT) 25 U/L (15-37) Alanine Aminotransferase (ALT/SGPT) 33 U/L (12-78) Alkaline Phosphatase 76 U/L (46-116) Total Creatine Kinase 62 U/L (26-308) Creatine Kinase MB 0.7 NG/ML (0.0-3.6) Creatine Kinase MB Relative Index 1.1 Troponin I 0.004 ng/mL (0.000-0.056) Pro-B-Type Natriuretic Peptide 62 pg/mL (0-125) Total Protein 7.4 G/DL (6.4-8.2) Albumin 3.7 G/DL (3.4-5.0) Globulin 3.7 g/dL Albumin/Globulin Ratio 1.0 (1.0-2.7) Urine Opiates Screen Negative (NEGATIVE) Urine Barbiturates Screen Negative (NEGATIVE) Phencyclidine (PCP) Screen Negative (NEGATIVE) Urine Amphetamines Screen Negative (NEGATIVE) Urine Benzodiazepines Screen Negative (NEGATIVE) Urine Cocaine Screen Negative (NEGATIVE) Urine Marijuana (THC) Screen Negative (NEGATIVE) EKG Diagnostic Results Rate: normal Rhythm: NSR ST Segments: no acute changes Last Vital Signs Date Time Temp Pulse Resp B/P (MAP) Pulse Ox O2 Delivery O2 Flow Rate FiO2 06/07/17 11:44 97.9 87 18 198/124 98 Room Air Status: unchanged Disposition: ADMITTED INPATIENT Condition: Serious Referrals: [facility],REFERRING (PCP) Javier Ho Jun 07, 2017 14:13
[2017-06-07] MEDS ORDERED: Solu-MEDROL 125mg Inj IVP ONE (14:30)
[2017-06-07] MEDS ORDERED: Enalaprilat 2.5mg/2ml Inj IV PRN (15:00)
[2017-06-07] MEDS ORDERED: dilTIAZem HCl 25mg/5ml Inj IV PRN (15:00)
[2017-06-07] MEDS ORDERED: Miralax 17gm pkt ORAL PRN (15:00)
[2017-06-07] MEDS ORDERED: Albuterol/Ipratropium 3ml neb HHN PRN (15:00)
[2017-06-07] MEDS ORDERED: Nitroglycerin Subl 0.4mg tab SL PRN (15:00)
[2017-06-07 15:42] LABS: EOSINOPHILS % (AUTO) 4.2 % (0.0-3.0); MEAN CORPUSCULAR HEMOGLOBIN 28.7 PG (27.0-31.0); MEAN CORPUSCULAR HGB CONC 31.9 G/DL (32.0-36.0); MEAN CORPUSCULAR VOLUME 90 FL (80-99); MEAN PLATELET VOLUME 8.5 FL (6.5-10.1); MONOCYTES % (AUTO) 7.6 % (1.0-10.0); NEUTROPHILS % (AUTO) 56.2 % (45.0-75.0); PLATELET COUNT 228 K/UL (150-450); RED BLOOD COUNT 4.55 M/UL (4.20-5.40); RED CELL DISTRIBUTION WIDTH 15.4 % (11.6-14.8); WHITE BLOOD COUNT 4.8 K/UL (4.8-10.8)
[2017-06-07 15:48] VITALS: BP 159/118
[2017-06-07 16:42] VITALS: BP 182/114
--- NOTE | 2017-06-07 16:52 | Diagnostic Imaging Report ---
Indication: SOB Technique: One view of the chest Comparison: 05/08/2017 Findings: The heart is borderline enlarged. Lungs and pleural space are clear. The aorta is tortuous. There is a small hiatal hernia. Findings are unchanged Impression: Borderline cardiomegaly No acute process Small hiatal hernia
--- NOTE | 2017-06-07 17:00 | Diagnostic Imaging Report ---
Indication: PAIN due to fall Technique: 3 views of the left ankle Comparison: none Findings: Bony alignment is normal. No acute fractures. No dislocations. Joint spaces are preserved Impression: Negative
--- NOTE | 2017-06-07 19:00 | History and Physical ---
History of Present Illness General Date patient seen: Jun 07, 2017 Reason for Hospitalization: Hypertension Present Illness HPI 51-year-old female with hx of htn, presented after having reported syncopal episode while on a ladder. Patient reports having fall from 2-3 steps. She reports having loss of consciousness the patient states that she had been taking her medications which include clonidine as well as medications for blood pressure. She reports having pain to her left ankle. Her BP was elevated and she is admitted to telemetry for uncontrolled htn and syncopal episode. Allergies: Coded Allergies: METHYLPHENIDATE (Verified Allergy, Unknown, 03/14/17) METOCLOPRAMIDE (Verified Allergy, Unknown, 03/14/17) ONDANSETRON (Verified Allergy, Unknown, 03/14/17) TRAMADOL (Verified Allergy, Unknown, 03/14/17) CHLORPROMAZINE (Verified Adverse Reaction, Intermediate, Shortness of Breath, 06/03/14) KETOROLAC (Verified Adverse Reaction, Intermediate, 06/03/14) PENICILLINS (Verified Adverse Reaction, Intermediate, 06/03/14) IBUPROFEN (Unverified Adverse Reaction, Unknown, 06/03/14) Uncoded Allergies: CONTRAST DYE (Allergy, Unknown, 03/14/17) Medication History Scheduled Albuterol Sulfate* (Albuterol Sulfate Hhn*), 3 ML INH TID, (Reported) Amlodipine Besylate (Norvasc), Unknown Dose ORAL DAILY, (Reported) Aspirin* (Aspir 81*), 81 MG ORAL DAILY, (Reported) Benazepril Hcl* (Benazepril Hcl*), 20 MG ORAL DAILY, (Reported) Benazepril Hcl* (Lotensin*), 20 MG ORAL DAILY, (Reported) Clonidine Hcl* (Catapres*), 0.1 MG ORAL QHS, (Reported) Cicqozldm-Rcz-6* (Vssylxgp-Wik-3*), 1 PATCH TDERMAL ONCE A WEEK, (Reported) Oeaupytzy-Gjs-5* (Ocgcxviv-Oer-9*), 1 PATCH TDERMAL QWEEK, (Reported) Lorazepam* (Ativan*), 1 MG ORAL BEDTIME, (Reported) Scheduled PRN Acetaminophen With Codeine (T#3) (Tylenol #3 Tab*), 1 TAB ORAL Q6HR PRN Patient History Healthcare decision maker Resuscitation status Full Code Advanced Directive on File Past Medical/Surgical History Past Medical/Surgical History: (1) HTN (hypertension) (2) Drug-seeking behavior Review of Systems All Other Systems: negative except mentioned in HPI Physical Exam General Appearance: WD/WN Lines, tubes and drains: peripheral HEENT: normocephalic Neck: non-tender, normal alignment Respiratory/Chest: chest wall non-tender, lungs clear Breasts: no masses Cardiovascular/Chest: normal peripheral pulses Abdomen: normal bowel sounds Genitourinary/Rectal: normal genital exam Extremities: normal range of motion Last 24 Hour Vital Signs Date Time Temp Pulse Resp B/P (MAP) Pulse Ox O2 Delivery O2 Flow Rate FiO2 06/07/17 17:40 182/114 06/07/17 16:42 97.2 83 18 182/114 95 06/07/17 16:22 81 21 159/118 98 Room Air 06/07/17 15:48 97.9 81 21 159/118 98 Room Air 06/07/17 15:47 81 21 Room Air 06/07/17 14:29 201/141 06/07/17 14:29 201/141 06/07/17 13:48 81 21 156/84 97 Room Air 06/07/17 11:44 97.9 87 18 198/124 98 Room Air Intake and Output 06/07/17 06/08/17 19:00 07:00 Intake Total 120 ml Balance 120 ml Intake Oral 120 ml # Voids 4 Laboratory Tests Test 06/07/17 12:30 White Blood Count 4.8 K/UL (4.8-10.8) Red Blood Count 4.55 M/UL (4.20-5.40) Hemoglobin 13.1 G/DL (12.0-16.0) Hematocrit 41.0 % (37.0-47.0) Mean Corpuscular Volume 90 FL (80-99) Mean Corpuscular Hemoglobin 28.7 PG (27.0-31.0) Mean Corpuscular Hemoglobin Concent 31.9 G/DL (32.0-36.0) L Red Cell Distribution Width 15.4 % (11.6-14.8) H Platelet Count 228 K/UL (150-450) Mean Platelet Volume 8.5 FL (6.5-10.1) Neutrophils (%) (Auto) 56.2 % (45.0-75.0) Lymphocytes (%) (Auto) 31.0 % (20.0-45.0) Monocytes (%) (Auto) 7.6 % (1.0-10.0) Eosinophils (%) (Auto) 4.2 % (0.0-3.0) H Basophils (%) (Auto) 1.0 % (0.0-2.0) Urine Color Pale yellow Urine Appearance Slightly cloudy Urine pH 7 (4.5-8.0) Urine Specific [place] 1.010 (1.005-1.035) Urine Protein Negative (NEGATIVE) Urine Glucose (UA) Negative (NEGATIVE) Urine Ketones Negative (NEGATIVE) Urine Occult Blood Negative (NEGATIVE) Urine Nitrite Negative (NEGATIVE) Urine Bilirubin Negative (NEGATIVE) Urine Urobilinogen Normal MG/DL (0.0-1.0) Urine Leukocyte Esterase Negative (NEGATIVE) Urine RBC 0 /HPF (0 - 2) Urine WBC 0-2 /HPF (0 - 2) Urine Squamous Epithelial Cells Occasional /LPF Urine Bacteria Moderate /HPF (NONE) H Urine HCG, Qualitative Negative Sodium Level 142 MMOL/L (136-145) Potassium Level 3.9 MMOL/L (3.5-5.1) Chloride Level 106 MMOL/L (98-107) Carbon Dioxide Level 26 MMOL/L (21-32) Anion Gap 10 mmol/L (5-15) Blood Urea Nitrogen 12 mg/dL (7-18) Creatinine 0.9 MG/DL (0.55-1.30) Estimat Glomerular Filtration Rate > 60 mL/min (>60) Glucose Level 109 MG/DL (74-106) H Calcium Level 9.6 MG/DL (8.5-10.1) Total Bilirubin 0.3 MG/DL (0.2-1.0) Aspartate Amino Transf (AST/SGOT) 25 U/L (15-37) Alanine Aminotransferase (ALT/SGPT) 33 U/L (12-78) Alkaline Phosphatase 76 U/L (46-116) Total Creatine Kinase 62 U/L (26-308) Creatine Kinase MB 0.7 NG/ML (0.0-3.6) Creatine Kinase MB Relative Index 1.1 Troponin I 0.004 ng/mL (0.000-0.056) Pro-B-Type Natriuretic Peptide 62 pg/mL (0-125) Total Protein 7.4 G/DL (6.4-8.2) Albumin 3.7 G/DL (3.4-5.0) Globulin 3.7 g/dL Albumin/Globulin Ratio 1.0 (1.0-2.7) Urine Opiates Screen Negative (NEGATIVE) Urine Barbiturates Screen Negative (NEGATIVE) Phencyclidine (PCP) Screen Negative (NEGATIVE) Urine Amphetamines Screen Negative (NEGATIVE) Urine Benzodiazepines Screen Negative (NEGATIVE) Urine Cocaine Screen Negative (NEGATIVE) Urine Marijuana (THC) Screen Negative (NEGATIVE) Height (Feet): 5 Height (Inches): 7.00 Weight (Pounds): 185 Medications Current Medications Medications (Trade) Dose Ordered Sig/Rylee Route PRN Reason Start Time Stop Time Status Last Admin Dose Admin Acetaminophen (Tylenol) 650 mg Q4H PRN ORAL FEVER 06/07/17 15:00 07/07/17 14:59 Albuterol/ Ipratropium (Albuterol/ Ipratropium) 3 ml Q4H PRN HHN Shortness of Breath 06/07/17 15:00 06/12/17 14:59 Amlodipine Besylate (Norvasc) 10 mg DAILY ORAL 06/08/17 09:00 07/08/17 08:59 Clonidine HCl (Catapres) 0.1 mg QHS ORAL 06/07/17 21:00 07/07/17 20:59 Diltiazem HCl (Cardizem) 10 mg Q1H PRN IV HR > 120 06/07/17 15:00 07/07/17 14:59 Enalaprilat (Vasotec) 2.5 mg Q6H PRN IV sbp more than 160 06/07/17 15:00 07/07/17 14:59 06/07/17 17:40 Heparin Sodium (Porcine) (Heparin 5000 units/ml) 5,000 units EVERY 12 HOURS SUBQ 06/07/17 21:00 07/07/17 20:59 Lisinopril (Zestril) 10 mg DAILY ORAL 06/08/17 09:00 07/08/17 08:59 Nitroglycerin (Ntg) 0.4 mg Q5M PRN SL Chest Pain 06/07/17 15:00 07/07/17 14:59 Pantoprazole (Protonix) 40 mg DAILY ORAL 06/08/17 09:00 1/11/18 08:59 Polyethylene Glycol (Miralax) 17 gm DAILYPRN PRN ORAL Constipation 06/07/17 15:00 07/07/17 14:59 Temazepam (Restoril) 15 mg HSPRN PRN ORAL Insomnia 06/07/17 15:00 06/14/17 14:59 Assessment/Plan Problem List: (1) Hypertensive urgency ICD Codes: I16.0 - Hypertensive urgency SNOMED: 340609224 (2) Syncope ICD Codes: R55 - Syncope and collapse SNOMED: 913465642 Assessment/Plan telemetry monitoring antihypertensives cardiology evaluation JANET KEMP Jun 07, 2017 19:00
[2017-06-07 20:00] VITALS: BP 157/102
[2017-06-07] MEDS: DiphenhydrAMINE 50mg/ml Inj IVP PRN (21:52)
[2017-06-07] MEDS: Hydromorphone 0.5mg/0.5ml inj IVP PRN (21:52)
[2017-06-07] MEDS: Heparin 5000 units/ml inj SUBQ SCH (21:53)
[2017-06-08] VITALS: BP 134/53
[2017-06-08] MEDS: DiphenhydrAMINE 50mg/ml Inj IVP PRN ×4 (03:25→16:01)
[2017-06-08] MEDS: Hydromorphone 0.5mg/0.5ml inj IVP PRN ×4 (03:25→16:01)
[2017-06-08 04:00] VITALS: BP 153/107
[2017-06-08 07:45] LABS: MEAN CORPUSCULAR HEMOGLOBIN 29.6 PG (27.0-31.0); MEAN CORPUSCULAR HGB CONC 33.6 G/DL (32.0-36.0); MEAN CORPUSCULAR VOLUME 88 FL (80-99); MEAN PLATELET VOLUME 7.8 FL (6.5-10.1); PLATELET COUNT 215 K/UL (150-450); WHITE BLOOD COUNT 9.4 K/UL (4.8-10.8)
[2017-06-08 08:11] LABS: CHOLESTEROL 338 MG/DL (< 200); CHOLESTEROL/HDL RATIO 4.8 (3.3-4.4); CRP QUANT < 0.4 mg/dL (0.00-0.90); THYROID STIMULATING HORMONE 0.529 uiU/mL (0.358-3.740)
[2017-06-08 08:30] VITALS: BP 139/92
[2017-06-08 08:33] LABS: BAND NEUTROPHILS % (MANUAL) 0 % (0-8); BASOPHILS % (MANUAL) 0 % (0-2); EOSINOPHILS % (MANUAL) 0 % (0-3); LYMPHOCYTES % (MANUAL) 13 % (20-45); NEUTROPHILS % (MANUAL) 84 % (45-75); PLATELET ESTIMATE ADEQUATE; PLATELET MORPHOLOGY NORMAL; TOTAL CELLS COUNTED 100
[2017-06-08] MEDS: Lisinopril 10mg tab ORAL SCH ×2 (08:35→16:40)
[2017-06-08] MEDS: Heparin 5000 units/ml inj SUBQ SCH (08:35)
[2017-06-08 11:38] VITALS: BP 142/83
--- NOTE | 2017-06-08 15:30 | Pulmonology Progress Note ---
Assessment/Plan Problems: (1) Hypertensive urgency (2) Syncope Assessment/Plan bp better neuro and cardio pending Subjective ROS Limited/Unobtainable: No Constitutional: Reports: no symptoms HEENT: Repors: no symptoms Allergies: Coded Allergies: METHYLPHENIDATE (Verified Allergy, Unknown, 03/14/17) METOCLOPRAMIDE (Verified Allergy, Unknown, 03/14/17) ONDANSETRON (Verified Allergy, Unknown, 03/14/17) TRAMADOL (Verified Allergy, Unknown, 03/14/17) CHLORPROMAZINE (Verified Adverse Reaction, Intermediate, Shortness of Breath, 06/03/14) KETOROLAC (Verified Adverse Reaction, Intermediate, 06/03/14) PENICILLINS (Verified Adverse Reaction, Intermediate, 06/03/14) IBUPROFEN (Unverified Adverse Reaction, Unknown, 06/03/14) Uncoded Allergies: CONTRAST DYE (Allergy, Unknown, 03/14/17) Objective Last 24 Hour Vital Signs Date Time Temp Pulse Resp B/P (MAP) Pulse Ox O2 Delivery O2 Flow Rate FiO2 06/08/17 12:31 97.9 06/08/17 11:38 97.9 87 18 142/83 98 06/08/17 08:36 89 139/92 06/08/17 08:30 96.8 89 18 139/92 95 06/08/17 08:00 77 06/08/17 04:00 97.0 75 21 153/107 96 Room Air 06/08/17 04:00 77 06/08/17 00:00 97.0 81 21 134/53 96 Room Air 06/08/17 00:00 84 06/07/17 21:54 157/102 06/07/17 20:00 96.9 87 24 157/102 91 Room Air 06/07/17 20:00 84 06/07/17 17:40 182/114 06/07/17 16:42 97.2 83 18 182/114 95 06/07/17 16:22 81 21 159/118 98 Room Air 06/07/17 15:48 97.9 81 21 159/118 98 Room Air 06/07/17 15:47 81 21 Room Air Intake and Output 06/08/17 06/09/17 19:00 07:00 Intake Total 150 ml Balance 150 ml Intake Oral 150 ml # Bowel Movements 1 General Appearance: WD/WN HEENT: atraumatic Respiratory/Chest: chest wall non-tender, normal breath sounds Breasts: no masses Cardiovascular: normal peripheral pulses, regularly irregular Abdomen: normal bowel sounds, soft, non tender Microbiology Date/Time Source Procedure Growth Status 06/07/17 12:30 Urine,Clean Catch Urine Culture - Preliminary Resulted Laboratory Tests 06/08/17 07:25: White Blood Count 9.4#, Red Blood Count 4.80, Hemoglobin 14.2, Hematocrit 42.4, Mean Corpuscular Volume 88, Mean Corpuscular Hemoglobin 29.6, Mean Corpuscular Hemoglobin Concent 33.6, Red Cell Distribution Width 15.0H, Platelet Count 215, Mean Platelet Volume 7.8, Neutrophils (%) (Auto) , Lymphocytes (%) (Auto) , Monocytes (%) (Auto) , Eosinophils (%) (Auto) , Basophils (%) (Auto) , Differential Total Cells Counted 100, Neutrophils % (Manual) 84H, Lymphocytes % (Manual) 13L, Monocytes % (Manual) 3, Eosinophils % (Manual) 0, Basophils % ( Manual) 0, Band Neutrophils 0, Platelet Estimate Adequate, Platelet Morphology Normal, Red Blood Cell Morphology Normal, Prothrombin Time 10.0, Prothromb Time International Ratio 1.0, Activated Partial Thromboplast Time 22L, Troponin I 0.000, C-Reactive Protein, Quantitative < 0.4, Triglycerides Level 246H, Cholesterol Level 338H, LDL Cholesterol 217H, HDL Cholesterol 71H, Cholesterol/ HDL Ratio 4.8H, Thyroid Stimulating Hormone (TSH) 0.529 Current Medications Medications (Trade) Dose Ordered Sig/Rylee Route PRN Reason Start Time Stop Time Status Last Admin Dose Admin Acetaminophen (Tylenol) 650 mg Q4H PRN ORAL FEVER 06/07/17 15:00 07/07/17 14:59 Albuterol/ Ipratropium (Albuterol/ Ipratropium) 3 ml Q4H PRN HHN Shortness of Breath 06/07/17 15:00 06/12/17 14:59 Amlodipine Besylate (Norvasc) 10 mg DAILY ORAL 06/08/17 09:00 07/08/17 08:59 Clonidine HCl (Catapres) 0.1 mg QHS ORAL 06/07/17 21:00 07/07/17 20:59 06/07/17 21:54 Diltiazem HCl (Cardizem) 10 mg Q1H PRN IV HR > 120 06/07/17 15:00 07/07/17 14:59 Diphenhydramine HCl (Benadryl) 25 mg Q4H PRN IVP Itching/Pruritis 06/07/17 20:30 07/07/17 20:29 06/08/17 12:01 Enalaprilat (Vasotec) 2.5 mg Q6H PRN IV sbp more than 160 06/07/17 15:00 07/07/17 14:59 06/07/17 17:40 Heparin Sodium (Porcine) (Heparin 5000 units/ml) 5,000 units EVERY 12 HOURS SUBQ 06/07/17 21:00 07/07/17 20:59 06/08/17 08:35 Hydromorphone HCl (Dilaudid) 0.5 mg Q4H PRN IVP For Pain Scale 4-10 06/07/17 20:30 06/14/17 20:29 06/08/17 12:01 Lisinopril (Zestril) 10 mg DAILY ORAL 06/08/17 09:00 07/08/17 08:59 Nitroglycerin (Ntg) 0.4 mg Q5M PRN SL Chest Pain 06/07/17 15:00 07/07/17 14:59 Pantoprazole (Protonix) 40 mg DAILY ORAL 06/08/17 09:00 07/08/17 08:59 06/08/17 08:33 Polyethylene Glycol (Miralax) 17 gm DAILYPRN PRN ORAL Constipation 06/07/17 15:00 07/07/17 14:59 Promethazine HCl (Phenergan) 25 mg Q4H PRN IV Nausea & Vomiting 06/07/17 21:30 07/07/17 21:29 06/08/17 12:01 Temazepam (Restoril) 15 mg HSPRN PRN ORAL Insomnia 06/07/17 15:00 06/14/17 14:59 JANET KEMP Jun 08, 2017 15:30
--- NOTE | 2017-06-08 16:00 | Cardiology Progress Note ---
Assessment/Plan Assessment/Plan avoid dehydration comply with meds anti emetic as needed ttws patch increase to 2 weekly keep on thelma other same meds [id number] Objective Last 24 Hour Vital Signs Date Time Temp Pulse Resp B/P (MAP) Pulse Ox O2 Delivery O2 Flow Rate FiO2 06/08/17 12:31 97.9 06/08/17 11:38 97.9 87 18 142/83 98 06/08/17 08:36 89 139/92 06/08/17 08:30 96.8 89 18 139/92 95 06/08/17 08:00 77 06/08/17 04:00 97.0 75 21 153/107 96 Room Air 06/08/17 04:00 77 06/08/17 00:00 97.0 81 21 134/53 96 Room Air 06/08/17 00:00 84 06/07/17 21:54 157/102 06/07/17 20:00 96.9 87 24 157/102 91 Room Air 06/07/17 20:00 84 06/07/17 17:40 182/114 06/07/17 16:42 97.2 83 18 182/114 95 06/07/17 16:22 81 21 159/118 98 Room Air Intake and Output 06/08/17 06/09/17 19:00 07:00 Intake Total 270 ml Balance 270 ml Intake Oral 270 ml # Voids 1 # Bowel Movements 1 Laboratory Tests Test 06/08/17 07:25 White Blood Count 9.4 K/UL (4.8-10.8) # Red Blood Count 4.80 M/UL (4.20-5.40) Hemoglobin 14.2 G/DL (12.0-16.0) Hematocrit 42.4 % (37.0-47.0) Mean Corpuscular Volume 88 FL (80-99) Mean Corpuscular Hemoglobin 29.6 PG (27.0-31.0) Mean Corpuscular Hemoglobin Concent 33.6 G/DL (32.0-36.0) Red Cell Distribution Width 15.0 % (11.6-14.8) H Platelet Count 215 K/UL (150-450) Mean Platelet Volume 7.8 FL (6.5-10.1) Neutrophils (%) (Auto) % (45.0-75.0) Lymphocytes (%) (Auto) % (20.0-45.0) Monocytes (%) (Auto) % (1.0-10.0) Eosinophils (%) (Auto) % (0.0-3.0) Basophils (%) (Auto) % (0.0-2.0) Differential Total Cells Counted 100 Neutrophils % (Manual) 84 % (45-75) H Lymphocytes % (Manual) 13 % (20-45) L Monocytes % (Manual) 3 % (1-10) Eosinophils % (Manual) 0 % (0-3) Basophils % (Manual) 0 % (0-2) Band Neutrophils 0 % (0-8) Platelet Estimate Adequate Platelet Morphology Normal Red Blood Cell Morphology Normal Prothrombin Time 10.0 SEC (9.30-11.50) Prothromb Time International Ratio 1.0 (0.9-1.1) Activated Partial Thromboplast Time 22 SEC (23-33) L Troponin I 0.000 ng/mL (0.000-0.056) C-Reactive Protein, Quantitative < 0.4 mg/dL (0.00-0.90) Triglycerides Level 246 MG/DL (30-150) H Cholesterol Level 338 MG/DL (< 200) H LDL Cholesterol 217 mg/dL (<100) H HDL Cholesterol 71 MG/DL (40-60) H Cholesterol/HDL Ratio 4.8 (3.3-4.4) H Thyroid Stimulating Hormone (TSH) 0.529 uiU/mL (0.358-3.740) Microbiology Date/Time Source Procedure Growth Status 06/07/17 12:30 Urine,Clean Catch Urine Culture - Preliminary Resulted BRINA CHAVIRA Jun 08, 2017 16:00
[2017-06-08 17:17] VITALS: BP 142/83
--- NOTE | 2017-06-08 22:02 | Consultation ---
DATE OF CONSULTATION: 06/08/2017 CARDIOLOGY CONSULTATION REFERRING PHYSICIAN: Zaida Fraser M.D. REASON FOR REFERRAL: Hypertension. HISTORY OF PRESENT ILLNESS: This 51-year-old female who is known to me from her prior hospitalization. The patient has extensive records at different hospitals as dictated in my prior dictations, some of the summary of the workup that she has extensively performed. She presented to the hospital because of nausea and vomiting, apparently, has been unable to take her medications because of those issues in her doctor's office. Blood pressure was significantly elevated and was referred to the emergency room here at [facility] where she was admitted. She was noted to have significantly elevated blood pressure on presentation to the emergency room with blood pressure 198/124. She apparently told the emergency room physician that she was having syncope while on the ladder and fell about two to three steps and she told the emergency room physician that she had lost consciousness and she had taken her medication including clonidine as well as other blood pressure medications. She has chronic chest pains. She has chronic shortness of breath secondary to COPD. She does wake up at night because of shortness of breath as she uses inhaler and sleeps with six pillows because of her shortness of breath. She has occasional palpitations, occasional chest pains, and occasional dizziness. PAST MEDICAL HISTORY: Extensive. She has history of hypertension. She has history of asthma. No history of ulcers. No kidney problems, liver problems, thyroid problems, anemia, arthritis, HIV, AIDS, or blood clots anywhere. She has had several hospitalizations at [facility]. She has hypertensive urgency, medication-seeking behavior, and previously has had extensive evaluation including coronary CT angiogram, ruled out coronary disease, as significant amount of testing that showed no evidence of aneurysm on prior occasions. ALLERGIES: She is allergic to multiple medications including Compazine, contrast dye, ketorolac, Reglan, Zofran, penicillin, and tramadol, but she is able to take Phenergan. SOCIAL HISTORY: She smokes one cigarette per day and socially drinks alcoholic beverages. She denies any drug use. REVIEW OF SYSTEMS: GASTROINTESTINAL: Positive for nausea and vomiting. GENITOURINARY: Negative. PULMONARY: Negative. CONSTITUTIONAL: Negative. NEUROLOGICAL: Negative. PHYSICAL EXAMINATION: GENERAL: Shows to be middle-aged female, in no respiratory distress. VITAL SIGNS: Blood pressure most recently has been improved from 139/92 to 142/83, temperature is 97.9 degrees, and heart rate is 87. NECK: Supple. No jugular venous distention. LUNGS: Appear to be clear to auscultation and percussion. CARDIAC: S1 is normal. S2 is normal. Regular rate and rhythm. No heaves, thrills, gallops, or rubs noted. ABDOMEN: Soft and nontender. Positive bowel sounds. EXTREMITIES: There is no clubbing, cyanosis, nor is there any edema. NEUROLOGICAL: She is awake, alert, responsive, and in no apparent respiratory distress. LABORATORY AND DIAGNOSTIC DATA: White count of 9.4, hemoglobin 14.2, and platelet count 215,000. Sodium is 140, potassium 3.9, chloride 106, bicarbonate 26, BUN 12, creatinine 0.9, and glucose of 109. Cardiac enzymes x2 are negative. Liver function tests are negative. Total cholesterol 242. Triglycerides of 338. LDL of 270 and HDL of 71. TSH is 0.529. Urinalysis is fairly unremarkable. Toxicology screen was negative. Chest x-ray was performed. It shows cardiomegaly borderline. No acute processes. Head CT reportedly is normal without contrast. Ankle x-rays were negative. echo preliminary hyperdynamic LV systolic function and EKG sinus rhythm. No ST or T-wave abnormalities. ASSESSMENT AND PLAN: 1. Recurrent nausea and vomiting. 2. Poor compliance to medication. 3. Hypertension secondary to noncompliance to medications. 4. History of syncope and near syncope. 5. Hyperdynamic left ventricular systolic function. Dr. Fraser, this patient was seen in cardiac consultation. The patient indicates she has not been compliant with medications because of the nausea and vomiting. She seems to be doing better now at the present time. Her blood pressure is much better controlled on medications. She is on clonidine as well as others to be continued. Her echocardiogram still shows LV systolic dysfunction in the setting of hypotension that may cause hypovolemia intracavitary and cause syncope. I suspect this is the possibility that she should be maintained on some oral and IV fluids to avoid recurrent bouts of syncope. Danny Villarreal M.D. DR: Oscar JOB#: [id number] CC:
--- NOTE | 2017-06-10 10:21 | Discharge Summary ---
Discharge Summary Hospital Course Date of Admission Jun 07, 2017 at 12:48 Date of Discharge Jun 08, 2017 at 18:07 Admitting Diagnosis hypertensive crisis, syncope HPI Catalina Rodríguez is a 51 year old female who was admitted on Jun 07, 2017 at 12:48 for Hypertensive Crisis, Syncope Hospital Course [id number] Discharge Discharge Disposition Patient was discharged to Home (01) Discharge Diagnoses: Consuelo Radford NP Jun 10, 2017 10:21
--- NOTE | 2017-06-10 11:01 | Cardiology Report ---
APPROVED REPORT EKG Measurement Heart [id number] Normal sinus rhythm Normal ECG
--- NOTE | 2017-06-10 11:02 | Cardiology Report ---
APPROVED REPORT EXAM: Two-dimensional and M-mode echocardiogram with Doppler and color Doppler. INDICATION Left ventricular function M-Mode DIMENSIONS IVSd1.3 (0.7-1.1cm)Left Atrium (MM)4.4 (1.6-4.0cm) LVDd3.9 (3.5-5.6cm)Aortic Root2.9 (2.0-3.7cm) PWd1.5 (0.7-1.1cm)Aortic Cusp Exc.1.8 (1.5-2.0cm) LVDs2.1 (2.5-4.0cm) PWs2.5 cm Normal left ventricular chamber size, hyperdynamic systolic function and wall motion. Left ventricular ejection fraction estimated to be 70-75 %. Moderate left ventricular hypertrophy. No evidence of pericardial effusion. Mild bi-atrial enlargement. Right ventricular chamber size is within normal limits. Mild focal aortic valve sclerosis with adequate cusp excursion. Mildly thickened mitral valve leaflets with normal excursion. Mild mitral annulus and aortic root calcification. Pulmonic valve not well visualized. Normal tricuspid valve structure. IVC at normal size with physiologic collapse. A color flow and spectral Doppler study was performed and revealed: Trace aortic regurgitation. Peak MID LV pressure gradient of 38 mm Hg and a mean of 10 mmHg. Elevated PG due to cavity obliteration. Trace mitral regurgitation. Mitral diastolic velocities suggest reduced left ventricular relaxation c/w mild LV diastolic dysfunction (Grade I). Mild tricuspid regurgitation. Tricuspid systolic velocities suggests peak right ventricular systolic pressure of 37 mmHg, consistent with mild pulmonary hypertension. No pulmonic regurgitation present.
--- NOTE | 2017-06-10 23:13 | General Progress Note ---
Subjective Date patient seen: Jun 08, 2017 Allergies: Coded Allergies: METHYLPHENIDATE (Verified Allergy, Unknown, 03/14/17) METOCLOPRAMIDE (Verified Allergy, Unknown, 03/14/17) ONDANSETRON (Verified Allergy, Unknown, 03/14/17) TRAMADOL (Verified Allergy, Unknown, 03/14/17) CHLORPROMAZINE (Verified Adverse Reaction, Intermediate, Shortness of Breath, 06/03/14) KETOROLAC (Verified Adverse Reaction, Intermediate, 06/03/14) PENICILLINS (Verified Adverse Reaction, Intermediate, 06/03/14) IBUPROFEN (Unverified Adverse Reaction, Unknown, 06/03/14) Uncoded Allergies: CONTRAST DYE (Allergy, Unknown, 03/14/17) Subjective 1-year-old female who is known to me from her prior hospitalization. The patient has extensive records at different hospitals as dictated in my prior dictations, some of the summary of the workup that she has extensively performed. She presented to the hospital because of nausea and vomiting, apparently, has been unable to take her medications because of those issues in her doctor's office. Objective Height (Feet): 5 Height (Inches): 7.00 Weight (Pounds): 185 Abril Sotelo M.D. Jun 10, 2017 23:13
--- NOTE | 2017-06-11 04:30 | Discharge Summary 2 SIG ---
DATE OF ADMISSION: 06/07/2017 DATE OF DISCHARGE: 06/08/2017 MILL ATTENDANT: Danny Villarreal M.D. BRIEF HOSPITAL COURSE: The patient is a 51-year-old female with history of hypertension, presented to ED complaining of reported syncopal episode while on a ladder. She reported having a fall two to three steps and had loss of consciousness. She had a pain to the left ankle and on the upper back. On arrival to ED, the patient was having some nausea and was given IV Benadryl. She was given antihypertensives. Blood pressure was 198/124. Initial troponin was negative and urine toxicology was negative. She was admitted to telemetry for hypertensive urgency and syncope. She was given antihypertensives, amlodipine and clonidine. She underwent cardiac evaluation with Dr. Villarreal. She had a chest x-ray done that showed borderline cardiomegaly with no acute process. Head CT was normal. Left ankle x-ray was likewise negative for fractures or dislocation with joint spaces preserved. Echocardiogram done showed LV systolic dysfunction in the setting of hypotension that may cause hypovolemia intracavitary and caused the syncope. She was advised oral and IV fluids to avoid recurrent bouts of syncope. She has poor compliance with medications because of the nausea and vomiting. She was given clonidine and TTS-2 patch weekly and was stressed regarding compliance with medications. Blood pressure improved. She was eventually discharged home to follow up with PCP. Home safety evaluation was also called, as the patient was requesting for a cane and ankle boots upon discharge. FINAL DIAGNOSES: 1. Hypertensive urgency. 2. Syncope possibly secondary to dehydration. 3. Poor compliance with medication. 4. Recurrent nausea and vomiting. 5. Hyperdynamic left ventricular systolic function. DISPOSITION: The patient was discharged home. DISCHARGE MEDICATIONS: Refer to medication list. DISCHARGE INSTRUCTIONS: Follow up with PMD in a week. The patient will need home safety evaluation, and was requesting for a cane and ankle boots. Zaida Fraser M.D. I have been assigned to dictate discharge summary on this account and I was not involved in the patient's management. Consuelo Radford N.P. DR: DAVID JOB#: [id number] CC: GRABIEL
== END 2017-06-08 18:07 | disposition home or self-care (01) | DRG 199 ==
LOC: EMR 12:00 → 2E 12:48 → EDBEDREQ 15:34 → 2E 16:40
DX: I16.0 Hypertensive urgency (principal); R55 Syncope and collapse; M25.572 Pain in left ankle and joints of left foot; W11.XXXA Fall on and from ladder, initial encounter; Z88.6 Allergy status to analgesic agent; Z88.0 Allergy status to penicillin; Z88.8 Allergy status to other drugs, medicaments and biological substances; Z91.041 Radiographic dye allergy status; E86.0 Dehydration; R11.2 Nausea with vomiting, unspecified
CPT/HCPCS: 36415; 70450; 71010; 80053; 80061; 80307; 81003; 81025; 82550; 82553; 83880; 84443; 84484; 85007; 85025; 85610; 85730; 86140; 87086; 87181; 93005; 93306; 99285

== ENCOUNTER 2017-06-28 12:36 | Emergency (ER) | payer OTHER ==
[~2017-06-28] VITALS: Ht 170.2 cm; Wt 80.7 kg
[~2017-06-28 12:36] MED LIST changes: +CATAPRES-TTS 21 EACH TDERMAL
[2017-06-28 12:46] VITALS: BP 186/114
[2017-06-28 12:59] LABS: APPEARANCE,URINE CLOUDY; BILIRUBIN, URINE NEGATIVE (NEGATIVE); COLOR,URINE PALE YELLOW; GLUCOSE, URINE (UA) NEGATIVE (NEGATIVE); KETONES,URINE NEGATIVE (NEGATIVE); LEUKOCYTE ESTERASE ,URINE NEGATIVE (NEGATIVE); NITRITE,URINE POSITIVE (NEGATIVE); PH,URINE 8 (4.5-8.0); PROTEIN,URINE NEGATIVE (NEGATIVE); UROBILINOGEN,URINE NORMAL MG/DL (0.0-1.0)
--- NOTE | 2017-06-28 13:17 | Emergency Room Report ---
History of Present Illness General Chief Complaint: Chest Pain Source: Patient Present Illness HPI 51-year-old female, history of hypertension, history of syncopal episodes, presents with syncopal episode. 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 There was no seizure-like activity. Patient was admitted just last month for syncope, nature related to dehydration and possible left ventricular dysfunction Patient also hit her right arm complaining of pain however has still been able to use it. Denying current headache blurry vision chest pain shortness of breath abdominal pain Allergies: Coded Allergies: METHYLPHENIDATE (Verified Allergy, Unknown, 03/14/17) METOCLOPRAMIDE (Verified Allergy, Unknown, 03/14/17) ONDANSETRON (Verified Allergy, Unknown, 03/14/17) TRAMADOL (Verified Allergy, Unknown, 03/14/17) CHLORPROMAZINE (Verified Adverse Reaction, Intermediate, Shortness of Breath, 06/03/14) KETOROLAC (Verified Adverse Reaction, Intermediate, 06/03/14) PENICILLINS (Verified Adverse Reaction, Intermediate, 06/03/14) IBUPROFEN (Unverified Adverse Reaction, Unknown, 06/03/14) Uncoded Allergies: CONTRAST DYE (Allergy, Unknown, 03/14/17) Patient History Past Medical History: see triage record Past Surgical History: none Pertinent Family History: none Reviewed Nursing Documentation: PMH: Agreed, PSxH: Agreed Nursing Documentation-PMH Hx Cardiac Problems: Yes - Aortic aneurism Hx Hypertension: Yes Hx Asthma: Yes Hx COPD: Yes - Emphysema Hx Cancer: No Hx Gastrointestinal Problems: No Hx Neurological Problems: Yes - Aortic aneurysm Hx 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 Hx Syncope: Yes Review of Systems All Other Systems: negative except mentioned in HPI Physical Exam Vital Signs Date Time Temp Pulse Resp B/P (MAP) Pulse Ox O2 Delivery O2 Flow Rate FiO2 06/28/17 12:38 97.9 102 20 186/114 99 Room Air Sp02 EP Interpretation: reviewed, normal General Appearance: normal inspection, well appearing, no apparent distress, alert, GCS 15, non-toxic Head: normocephalic, atraumatic Eyes: bilateral eye normal inspection, bilateral eye PERRL, bilateral eye EOMI ENT: normal ENT inspection, normal pharynx, normal voice, moist mucus membranes Neck: normal inspection, full range of motion, supple Respiratory: normal inspection, lungs clear, normal breath sounds, no respiratory distress, no retraction, no wheezing, speaking full sentences, chest symmetrical Cardiovascular #1: normal inspection, regular rate, rhythm, no edema, normal capillary refill Cardiovascular #2: 2+ radial (R), 2+ radial (L) Gastrointestinal: normal inspection, non tender, soft, non-distended, no guarding Musculoskeletal: other - R forearm mild edema, ttp, has FROM. no other abnormalities Neurologic: normal inspection, alert, oriented x3, responsive, relationship specialist III-XII nml as tested, motor strength/tone normal, sensory intact, speech normal Psychiatric: normal inspection, judgement/insight normal, memory normal Skin: normal inspection, normal color, no rash, warm/dry, well hydrated, normal turgor Medical Decision Making Diagnostic Impression: Primary Impression: UTI (urinary tract infection) Additional Impression: Syncope ER Course 51-year-old female with syncopal episode DDX: Vasovagal vs. orthostatic / hypovolemic/dehydration vs. cardiac arrhythmia (SVT , Afib) vs. cardiac (, ACS) vs. PE vs. metabolic (hypoglycemia, hypoxia), vs neuro (seizure, CVA, intracranial bleed) Plan: bgm, cbc, bmp, ekg, cxr consider IVF CT head ER course: Patient has remained stable during ED stay. No further syncopal episodes Pt has been very vocal during her ED stay. States that she is allergic to everything and wants something for her pain. States that she is allergic to everything except for dilaudid. She is allergic to morphine. Toradol. I am uncomfortable to give her such a strong opiates at this time. She is refusing to take an x-ray of her arm, she gets tylotic. She is using her right forearm without any difficulty, moving it. She has been ambulatory in the emergency room, no neurological signs or symptoms She has a UTI and Macrobid as given to her Given the patient's recent stay in the hospital, and workup for syncope, I do not believe the patient warrants admission at this time Disposition: Patient mayo be DCed back to home macrobid and pyridium fu with PMD in 1 week Please note that this Emergency Department Report was dictated using [email or web address] puncher technology software, occasionally this can lead to erroneous entry secondary to interpretation by the dictation equipment EKG Diagnostic Results EP Interpretation: Yes Rate: normal Rhythm: NSR ST Segments: Slight prolonged QT. T-wave inversion in aVL ASA given to patient: No Rhythm Strip EP Interpretation: Yes Rate: 90 Rhythm: NSR, no PVCs, no ectopy Chest X-ray CXR: Ordered: Yes 1 view Indication: Syncope EP interpretation: Yes Interpretation: No consolidation, no effusion, no PTX, no acute cardiopulmonary disease Impression: No acute disease Electronically signed by Falguni Ho MD Laboratory Tests Test 06/28/17 12:45 06/28/17 13:25 Urine Color Pale yellow Urine Appearance Cloudy Urine pH 8 (4.5-8.0) Urine Specific [place] 1.005 (1.005-1.035) Urine Protein Negative (NEGATIVE) Urine Glucose (UA) Negative (NEGATIVE) Urine Ketones Negative (NEGATIVE) Urine Occult Blood Negative (NEGATIVE) Urine Nitrite Positive (NEGATIVE) H Urine Bilirubin Negative (NEGATIVE) Urine Urobilinogen Normal MG/DL (0.0-1.0) Urine Leukocyte Esterase Negative (NEGATIVE) Urine RBC 0-2 /HPF (0 - 2) Urine WBC 0-2 /HPF (0 - 2) Urine Squamous Epithelial Cells Few /LPF (NONE/OCC) Urine Uric Acid Crystals Moderate /LPF (NONE) H Urine Bacteria Many /HPF (NONE) H White Blood Count 3.9 K/UL (4.8-10.8) L Red Blood Count 4.42 M/UL (4.20-5.40) Hemoglobin 12.4 G/DL (12.0-16.0) Hematocrit 39.2 % (37.0-47.0) Mean Corpuscular Volume 89 FL (80-99) Mean Corpuscular Hemoglobin 28.1 PG (27.0-31.0) Mean Corpuscular Hemoglobin Concent 31.6 G/DL (32.0-36.0) L Red Cell Distribution Width 14.1 % (11.6-14.8) Platelet Count 255 K/UL (150-450) Mean Platelet Volume 7.0 FL (6.5-10.1) Neutrophils (%) (Auto) 57.8 % (45.0-75.0) Lymphocytes (%) (Auto) 30.1 % (20.0-45.0) Monocytes (%) (Auto) 7.7 % (1.0-10.0) Eosinophils (%) (Auto) 3.0 % (0.0-3.0) Basophils (%) (Auto) 1.4 % (0.0-2.0) Sodium Level 143 MMOL/L (136-145) Potassium Level 3.6 MMOL/L (3.5-5.1) Chloride Level 108 MMOL/L (98-107) H Carbon Dioxide Level 23 MMOL/L (21-32) Anion Gap 12 mmol/L (5-15) Blood Urea Nitrogen 9 mg/dL (7-18) Creatinine 0.8 MG/DL (0.55-1.30) Estimate Glomerular Filtration Rate > 60 mL/min (>60) Glucose Level 118 MG/DL (74-106) H Calcium Level 8.1 MG/DL (8.5-10.1) L Total Bilirubin 0.2 MG/DL (0.2-1.0) Aspartate Amino Transferase (AST) 28 U/L (15-37) Alanine Aminotransferase (ALT) 52 U/L (12-78) Alkaline Phosphatase 79 U/L (46-116) Troponin I 0.000 ng/mL (0.000-0.056) Pro-B-Type Natriuretic Peptide 53 pg/mL (0-125) Total Protein 7.1 G/DL (6.4-8.2) Albumin 3.6 G/DL (3.4-5.0) Globulin 3.5 g/dL Albumin/Globulin Ratio 1.0 (1.0-2.7) CT/MRI/US Diagnostic Results CT/MRI/US Diagnostic Results : Imaging Test Ordered: CT Head Impression CT HEAD: Comparison 06/07/2017 No ICH, mass effect or edema. No evidence of acute cortical stroke. Visualized sinuses and mastoid air cells are clear. Last Vital Signs Date Time Temp Pulse Resp B/P (MAP) Pulse Ox O2 Delivery O2 Flow Rate FiO2 06/28/17 12:38 97.9 102 20 186/114 99 Room Air Disposition: HOME, SELF-CARE Condition: Improved Scripts Phenazopyridine Hcl* (PYRIDIUM*) 200 Mg Tablet 200 MG ORAL THREE TIMES A DAY, #14 TAB 0 Refills Prov: Falguni Ho M.D. 06/28/17 Nitrofurantoin Monohyd/M-Cryst* (MACROBID 100 MG*) 100 Mg Capsule 100 MG ORAL EVERY 12 HOURS for 7 Days, #21 CAP 0 Refills Prov: Falguni Ho M.D. 06/28/17 Falguni Ho M.D. Jun 28, 2017 13:17
[2017-06-28 13:41] LABS: BASOPHILS % (AUTO) 1.4 % (0.0-2.0); HEMATOCRIT 39.2 % (37.0-47.0); HEMOGLOBIN 12.4 G/DL (12.0-16.0); LYMPHOCYTES % (AUTO) 30.1 % (20.0-45.0); MEAN CORPUSCULAR VOLUME 89 FL (80-99); MONOCYTES % (AUTO) 7.7 % (1.0-10.0); NEUTROPHILS % (AUTO) 57.8 % (45.0-75.0); PLATELET COUNT 255 K/UL (150-450); RED BLOOD COUNT 4.42 M/UL (4.20-5.40); RED CELL DISTRIBUTION WIDTH 14.1 % (11.6-14.8); WHITE BLOOD COUNT 3.9 K/UL (4.8-10.8)
[2017-06-28 13:52] LABS: ANION GAP 12 mmol/L (5-15); BLOOD UREA NITROGEN 9 mg/dL (7-18); CALCIUM 8.1 MG/DL (8.5-10.1); CARBON DIOXIDE 23 MMOL/L (21-32); CHLORIDE 108 MMOL/L (98-107); CREATININE 0.8 MG/DL (0.55-1.30); POTASSIUM 3.6 MMOL/L (3.5-5.1); SODIUM 143 MMOL/L (136-145)
[2017-06-28 14:05] LABS: ALANINE AMINOTRANSFERASE 52 U/L (12-78); ALBUMIN 3.6 G/DL (3.4-5.0); ALKALINE PHOSPHATASE 79 U/L (46-116); ASPARTATE AMINO TRANSFERASE 28 U/L (15-37); BILIRUBIN,TOTAL 0.2 MG/DL (0.2-1.0)
[2017-06-28] MEDS ORDERED: Haloperidol 5mg/ml Inj IM ONE (14:15)
[2017-06-28] MEDS ORDERED: Acetaminophen 500mg (ES) tab ORAL ONE (14:15)
[2017-06-28] MEDS ORDERED: NITROFURANTOIN100 M2 ORAL (14:40)
[2017-06-28] MEDS ORDERED: PHENAZOPYRIDIN200 MG ORAL (14:40)
[2017-06-28] MEDS ORDERED: DiphenhydrAMINE 50mg/ml Inj IVP ONE (14:45)
[2017-06-28] MEDS ORDERED: DiphenhydrAMINE 50mg/ml Inj ONE (14:46)
[2017-06-28 14:57] VITALS: BP 206/106
--- NOTE | 2017-06-29 08:24 | Diagnostic Imaging Report ---
Indication: Pain Technique: Continuous helical CT scanning of the head was performed utilizing automated exposure control without intravenous contrast material. Axial and coronal reconstructions were obtained. Comparison: 06/07/2017 CT dose: Total DLP 1322.65 mGycm; CTDI vol 70.38 mGy Findings: There is no acute intracranial hemorrhage, mass effect or cortical edema. The ventricles, cisterns and sulci are normal for age and stable in appearance compared to the prior exam. The posterior fossa and fourth ventricle are unremarkable. Sellar and suprasellar regions are grossly unremarkable. Visualized mastoid air cells and paranasal sinuses are unremarkable. Incidental note is made of pneumatization of the bilateral petrous apices. No focal lesions of the bony calvarium or soft tissues of the scalp are seen. Impression: No evidence of acute intracranial hemorrhage, mass effect or cortical edema. MRI may be obtained for more sensitive evaluation as clinically indicated. This corresponds with the statrad preliminary report. The CT scanner at [facility] is accredited by the [employer] and the scans are performed using protocols designed to limit radiation exposure to as low as reasonably achievable to attain images of sufficient resolution adequate for diagnostic evaluation.
--- NOTE | 2017-06-29 08:28 | Diagnostic Imaging Report ---
Indication: Pain Technique: XRAY Chest 1v Comparison: 06/07/2017 and 03/14/2017 Findings: Heart size and mediastinal contours are stable. The thoracic aorta is again noted to be mildly tortuous. A small to moderate-sized hiatal hernia is again seen. There is no focal airspace consolidation, pleural effusion or pneumothorax. No acute osseous abnormality seen. Impression: No radiographic evidence of acute cardiopulmonary disease. Hiatal hernia.
--- NOTE | 2017-06-29 17:07 | Cardiology Report ---
APPROVED REPORT EKG Measurement Heart [id number] [id number] Normal sinus rhythm Prolonged QT Abnormal ECG
== END 2017-06-28 14:57 | disposition home or self-care (01) ==
LOC: EMR 13:45
DX: N39.0 Urinary tract infection, site not specified (principal); R55 Syncope and collapse; I10 Essential (primary) hypertension; J45.909 Unspecified asthma, uncomplicated; K44.9 Diaphragmatic hernia without obstruction or gangrene; Z86.73 Personal history of transient ischemic attack (TIA), and cerebral infarction without residual deficits; Z88.6 Allergy status to analgesic agent; Z88.0 Allergy status to penicillin; Z88.8 Allergy status to other drugs, medicaments and biological substances
CPT/HCPCS: 36415; 70450; 71045; 80053; 81003; 83880; 84484; 85025; 87086; 87181; 93005; 96372; 96374; 99284; J1200; J1630

== ENCOUNTER 2017-11-02 09:32 | Emergency (ER) | payer OTHER ==
[~2017-11-02] VITALS: Ht 170.2 cm; Wt 80.7 kg
[~2017-11-02 09:32] MED LIST changes: +NITROFURANTOIN100 M2 ORAL; +PHENAZOPYRIDIN200 MG ORAL
[2017-11-02] MEDS ORDERED: Morphine Sulfate 4mg/ml Inj IM ONE (10:15)
--- NOTE | 2017-11-02 10:34 | Diagnostic Imaging Report ---
Indication: Pain Findings: 3 views of the right shoulder were obtained. No acute fractures, malalignment, erosions or periostitis are identified. Soft tissues are unremarkable. Impression: Negative for acute injury
[2017-11-02 10:38] VITALS: BP 197/117
--- NOTE | 2017-11-05 00:59 | Emergency Room Report ---
History of Present Illness General Chief Complaint: General Complaint Source: Patient, Medical Record Present Illness HPI Patient presents with complaints of right shoulder pain She reports that she was on a ladder when she fell backwards This happened 3 days ago Denies any headache denies any chest pain or shortness of breath Patient presents fairly histrionic Denies any lapse of consciousness denies any abdominal pain Pain is worse in the shoulder was trying to extend the arm upward Denies any tingling or numbness Allergies: Coded Allergies: METHYLPHENIDATE (Verified Allergy, Unknown, 03/14/17) METOCLOPRAMIDE (Verified Allergy, Unknown, 03/14/17) ONDANSETRON (Verified Allergy, Unknown, 03/14/17) TRAMADOL (Verified Allergy, Unknown, 03/14/17) CHLORPROMAZINE (Verified Adverse Reaction, Intermediate, Shortness of Breath, 06/03/14) KETOROLAC (Verified Adverse Reaction, Intermediate, 06/03/14) PENICILLINS (Verified Adverse Reaction, Intermediate, 06/03/14) IBUPROFEN (Unverified Adverse Reaction, Unknown, 06/03/14) Uncoded Allergies: CONTRAST DYE (Allergy, Unknown, 03/14/17) Patient History Past Medical History: see triage record Pertinent Family History: none Last Menstrual Period: 2009 Reviewed Nursing Documentation: PMH: Agreed; PSxH: Agreed Nursing Documentation-PMH Past Medical History: No History, Except For Hx Cardiac Problems: Yes - Aortic aneurism Hx Hypertension: Yes Hx Asthma: Yes Hx COPD: Yes - Emphysema Hx Cancer: No Hx Gastrointestinal Problems: No Hx Neurological Problems: Yes - Aortic aneurysm Hx 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 Hx Syncope: Yes Review of Systems All Other Systems: negative except mentioned in HPI Physical Exam Vital Signs Date Time Temp Pulse Resp B/P (MAP) Pulse Ox O2 Delivery O2 Flow Rate FiO2 11/02/17 09:42 98.0 86 18 197/117 97 Room Air 98.1 Sp02 EP Interpretation: reviewed, normal General Appearance: mild distress - In pain Head: normocephalic, atraumatic Eyes: bilateral eye PERRL, bilateral eye EOMI ENT: normal pharynx Neck: full range of motion, supple Respiratory: lungs clear, normal breath sounds Cardiovascular #1: regular rate, rhythm, no edema Gastrointestinal: non tender, soft Genitourinary: no CVA tenderness Musculoskeletal: other - Able to supinate and pronate the right arm, pain on palpation of the anterior right shoulder, also increased discomfort with trying to extend the shoulder up Neurologic: alert, oriented x3, responsive Skin: normal color, no rash Lymphatic: no adenopathy Medical Decision Making Diagnostic Impression: Primary Impression: shoulder contusion ER Course Patient's presentation was very similar to her previous presentation when asked regarding that she states that she has fallen off a ladder several times Imaging study were negative at this time Patient's CURES show significant pain medication Patient was recommended to follow up with her primary physician for further prescription Other X-Ray Diagnostic Results Other X-Ray Diagnostic Results : X-Ray ordered: Right shoulder # of Views/Limited Vs Complete: 3 View Indication: Pain EP Interpretation: Yes Interpretation: no dislocation, no soft tissue swelling, no fractures Impression: No acute disease Electronically Signed by: Andrea Monroy DO Last Vital Signs Date Time Temp Pulse Resp B/P (MAP) Pulse Ox O2 Delivery O2 Flow Rate FiO2 11/02/17 10:38 208.4 18 197/117 97 Room Air 208.4 11/02/17 09:42 86 Status: improved Disposition: HOME, SELF-CARE Condition: Stable Referrals: [facility],REFERRING (PCP) Patient Instructions: Contusion-SportsMed Additional Instructions: In an attempt to provide further pain medication. The [facility] system in [place] has identified multiple providers with multiple medications prescribed recently. Given the safe pain medication prescribing campaign we were unfortunately unable to provide other prescription also given the number of allergies that you have. And it is recommended for you to follow-up with your primary physician Andrea Monroy DO November 05, 2017 00:59
== END 2017-11-02 10:39 | disposition home or self-care (01) ==
LOC: EMR 10:06
DX: S40.011A Contusion of right shoulder, initial encounter (principal); W11.XXXA Fall on and from ladder, initial encounter; Y92.9 Unspecified place or not applicable; I10 Essential (primary) hypertension; Z86.73 Personal history of transient ischemic attack (TIA), and cerebral infarction without residual deficits; Z88.0 Allergy status to penicillin; Z88.6 Allergy status to analgesic agent; Z91.041 Radiographic dye allergy status; J43.9 Emphysema, unspecified
CPT/HCPCS: 73030; 96372; 99283; J2270; J2550

== ENCOUNTER 2018-01-19 15:41 | Emergency (ER) | payer OTHER ==
[~2018-01-19] VITALS: Ht 170.2 cm; Wt 80.7 kg
[2018-01-19] MEDS ORDERED: Morphine Sulfate 4mg/ml Inj (IV USE ONLY) IVP ONE (16:15)
[2018-01-19] MEDS ORDERED: Pantoprazole Inj IVP ONE (16:15)
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
[2018-01-19 16:50] VITALS: BP 128/89
[2018-01-19] MEDS ORDERED: Albuterol/Ipratropium 3ml neb HHN ONE (17:00)
[2018-01-19] MEDS ORDERED: DiphenhydrAMINE 25mg/10ml Elixir ORAL ONE (17:00)
[2018-01-19 17:05] LABS: EOSINOPHILS % (AUTO) 0.7 % (0.0-3.0); HEMATOCRIT 46.1 % (37.0-47.0); HEMOGLOBIN 15.6 G/DL (12.0-16.0); LYMPHOCYTES % (AUTO) 20.5 % (20.0-45.0); MEAN CORPUSCULAR VOLUME 87 FL (80-99); NEUTROPHILS % (AUTO) 72.8 % (45.0-75.0); PLATELET COUNT 213 K/UL (150-450); RED BLOOD COUNT 5.31 M/UL (4.20-5.40); RED CELL DISTRIBUTION WIDTH 13.7 % (11.6-14.8); WHITE BLOOD COUNT 6.7 K/UL (4.8-10.8)
[2018-01-19 17:18] LABS: ANION GAP 13 mmol/L (5-15); BLOOD UREA NITROGEN 19 mg/dL (7-18); CALCIUM 10.4 MG/DL (8.5-10.1); CARBON DIOXIDE 23 MMOL/L (21-32); CHLORIDE 104 MMOL/L (98-107); CREATININE 1.3 MG/DL (0.55-1.30); INR 0.9 (0.9-1.1); POTASSIUM 4.9 MMOL/L (3.5-5.1); SODIUM 140 MMOL/L (136-145)
[2018-01-19 17:23] LABS: ALANINE AMINOTRANSFERASE 31 U/L (12-78); ALBUMIN 4.3 G/DL (3.4-5.0); ALKALINE PHOSPHATASE 91 U/L (46-116); ASPARTATE AMINO TRANSFERASE 32 U/L (15-37); BILIRUBIN,TOTAL 0.7 MG/DL (0.2-1.0)
[2018-01-19] MEDS ORDERED: Dicyclomine HCl 10mg/5ml oral soln ORAL ONE (17:45)
[2018-01-19] MEDS ORDERED: Lidocaine 2% Visc 15ml soln ORAL ONE (17:45)
[2018-01-19] MEDS ORDERED: NORCO 5-325 TA1 EACH ORAL (17:56)
[2018-01-19] MEDS ORDERED: PRILOSEC OTC20 MG ORAL (17:56)
[2018-01-19] MEDS ORDERED: LIDOCAINE700 M1 TP (17:56)
[2018-01-19 18:00] VITALS: BP 154/90
[2018-01-19 18:24] VITALS: BP 154/90
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
--- NOTE | 2018-02-04 14:21 | Cardiology Report ---
APPROVED REPORT EKG Measurement Heart [id number] CT [id number] [id number] Normal sinus rhythm Possible Left atrial enlargement Left ventricular hypertrophy Abnormal ECG
== END 2018-01-19 19:00 | disposition home or self-care (01) ==
LOC: EMR 16:35
DX: M25.511 Pain in right shoulder (principal); M25.521 Pain in right elbow; R07.9 Chest pain, unspecified; V43.62XA Car passenger injured in collision with other type car in traffic accident, initial encounter; Y92.410 Unspecified street and highway as the place of occurrence of the external cause; R11.2 Nausea with vomiting, unspecified; I10 Essential (primary) hypertension; J43.9 Emphysema, unspecified; K44.9 Diaphragmatic hernia without obstruction or gangrene; D25.9 Leiomyoma of uterus, unspecified; Z88.6 Allergy status to analgesic agent; Z88.0 Allergy status to penicillin; Z88.5 Allergy status to narcotic agent; Z91.041 Radiographic dye allergy status
CPT/HCPCS: 36415; 71045; 73030; 73110; 74176; 80053; 84484; 85025; 85610; 85730; 86850; 86900; 86901; 93005; 94640; 94664; 96374; 96375; 99285; C9113; J2270; J7620